=== PATIENT | female | born 1990 | race Caucasian/White ===

== ENCOUNTER 2019-11-20 11:59 | Emergency (ER) | payer MEDICAID, SELFPAY ==
[2019-11-20 13:03] VITALS: PULSE 80; RESP 20; TEMP 37.1; O2SAT 98; BMI 44.3
--- NOTE | 2019-11-20 13:12 | PC.NURSE ---
Patient seated back out in the waiting area at this time due to unavailable rooms at this time. Will continue to monitor.
[2019-11-20 14:09] VITALS: BP 127/74; PULSE 78; RESP 18; TEMP 36.7; O2SAT 99
--- NOTE | 2019-11-20 14:11 | W.ED.BACK ---
HPI - Back Pain/Injury General: Chief Complaint: Back Pain/Injury Stated Complaint: BACK PAIN Time Seen by Provider: 11/20/19 13:57 Source: patient Mode of arrival: ambulatory Limitations: no limitations History of Present Illness: HPI Narrative: 29 yo female patient presents to ER with c/o low back pain x 1 week. Pt denies any injury or trauma. Pt states pain started while she was trying to get dressed. Pt denies any IV drug abuse, hx of cancer, loss of bowel or bladder. PT denies any radiation of pain. MD elicited complaint: back pain Pertinent past history: prior back pain Onset (ago): week(s) (1) Timing: constant Similar Symptoms Previously: Yes Quality: sharp Location: lumbar spine Radiation: none Exacerbating factors: movement and lifting Relieving factors: none Context: while lifting and turning/twisting Associated symptoms: Deny abdominal pain, arthralgias, chills, change in bowel habits, difficulty walking, dysuria, fatigue, fecal incontinence, fever(s), hematuria, myalgias, nausea, numbness, syncope, tingling/numbness/burning, urinary frequency, urinary urgency, vomiting, weakness or other Review of Systems Const: Denies: fever, chills or fatigue Eyes: Denies: change in vision, blurry vision, blind spots, photophobia, eye discomfort, eye discharge, eye redness, floaters or seeing flashes ENMT: Denies: throat pain, uvular edema, enlarged tonsils, painful swallowing, hoarseness, mouth pain, swelling of lips/tongue, oral sores/lesions, bleeding gums, dental pain, dry mouth, ear pain, ear discharge, Change in hearing, tinnitus, disequilibrium, nasal discharge, nasal congestion, post nasal drip or facial/sinus pain Card: Denies: syncope Resp: Denies: shortness of breath, productive cough, non-productive cough, wheezing, stridor, pain on inspiration, change in phlegm color, coughing up blood or chest congestion GI: Denies: abdominal pain, nausea, vomiting, fecal incontinence or change in bowel habits : Denies: painful urination, urinary urgency or blood in urine Musc: Denies: neck pain, back pain, extremity pain, extremity swelling, joint pain, joint swelling, redness, joint warmth or deformity Skin/Breast: Denies: rash, itching, redness, sores, new lesion, changes in skin color or dry skin Neuro: Denies: difficulty walking Psych: Denies: anxiety, depression, suicidal ideation or homicidal ideation Endo: Denies: excessive urination, excessive thirst, tired all the time, cold intolerance, excessive sweating, flushing, hot flashes or heat intolerance Hugo/Lymph: Denies: easy bruising, easy bleeding, petechiae, purpura, enlarged lymph nodes or tender lymph nodes All/Imm: Denies: hives, throat swelling, tongue swelling, facial swelling, acute wheezing or itchy eyes PFSH ED PFSH: Statuses (acute, chronic, etc) shown below reflect problem list status as previously entered and may not be historically accurate Social History Smoking and tobacco status: never smoked Physical Exam Const: COMMON NORMALS: no apparent distress, oriented x3, healthy appearing and well nourished GENERAL APPEARANCE: cooperative, comfortable, well kempt and well developed; not ill appearing ORIENTATION/CONSCIOUSNESS: Yes awake HENMT: EXTERNAL EAR: Yes mastoids normal MOUTH: oral and palatal mucosa normal, lip normal, tongue normal and salivary glands and ducts normal THROAT: posterior oropharynx normal, tonsils normal and uvula midline; no uvular edema Neck/C-Spine: COMMON NORMALS: full ROM, no lymphadenopathy, supple, no meningeal signs, no JVD and thyroid normal GENERAL: Yes normal visual inspection and Yes trachea midline THYROID: thyroid normal CERVICAL SPINE: Yes cervical ROM normal Lymph: LYMPHATIC: no lymphadenopathy noted and no lymphedema noted Resp: COMMON NORMALS: normal respiratory effort, no retractions, no use of accessory muscles and clear to auscultation bilaterally EFFORT & INSPECTION: Yes able to speak in complete sentences and Yes symmetric chest movement AUSCULTATION: clear to auscultation bilaterally Cardio: COMMON NORMALS: no JVD, regular rate and regular rhythm RATE: regular rate RHYTHM: regular rhythm GI: RECTAL EXAM: deferred : COMMON NORMALS: Yes no CVA tenderness BLADDER/KIDNEY EXAM: Yes no CVA tenderness Back/Pelvis: COMMON NORMALS: no CVA tenderness, thoracic and lumbar spine normal to inspection, no thoracic nor lumbar tenderness, thoraco-lumbar ROM normal and straight leg raise negative bilaterally GENERAL BACK: Yes tenderness (diffuse lumbar region there is no midline tenderness) THORACIC SPINE/UPPER BACK: Yes normal to inspection LUMBAR SPINE/LOWER BACK: Yes normal to inspection, Yes ROM limited, No lumbar spinal tenderness and Yes straight leg raise negative bilaterally Extremity: COMMON NORMALS: normal to inspection, full ROM and normal capillary refill GENERAL: Yes normal exam except as noted Neuro: COMMON NORMALS: oriented x3, CN's II-XII intact bilaterally, moves all extremities, no focal motor deficits, no sensory deficits noted, deep tendon reflexes 2+ bilaterally and gait normal MENINGEAL SIGNS: Yes no meningeal signs SPEECH: speech normal GAIT: Yes normal gait SENSORY EXAM: Yes extremities MOTOR EXAM: strength 5/5 throughout Psych: COMMON NORMALS: mental status grossly normal, thought process normal, cooperative, affect normal, speech normal, activity/motor behavior normal, denies hallucinations, denies homicidal ideation and denies suicidal ideation APPEARANCE: Yes grossly normal and Yes well kempt ATTITUDE: Yes calm ACTIVITY/MOTOR BEHAVIOR: Yes appropriate eye contact SPEECH: Yes normal speech THOUGHT PROCESS: normal thought process THOUGHT CONTENT: Yes normal thought content ATTENTION/CONCENTRATION: Yes attention grossly intact MEMORY/COGNITION: Yes memory grossly intact INSIGHT: insight good JUDGEMENT: judgment good Skin: COMMON NORMALS: no rashes or lesions noted, no wounds, skin turgor normal, no jaundice, no petechiae and no mottling GENERAL SKIN EXAM: no rashes or lesions noted and turgor normal Course ED course: Patient is well-appearing nontoxic and in no acute distress. Odilon was considered for low back pain. Patient does not have any history of hypertension, trauma, fever, IV drug abuse, cancer. Patient's urinalysis does not reveal any concerning findings. Patient does not have any midline tenderness. Patient does not have any radiation of pain. Patient does not have any CVA tenderness. Patient does not complain of any numbness or tingling. Patient is neurovascularly intact bilateral lower extremities. Patient does not have any signs of cauda equina. Patient does not have any loss of bowel or bladder. Patient does not have any perianal numbness or tingling. Patient was given Flexeril Decadron 10 mg IM as well as Toradol 60 mg IM and did have clinical improvement with this. I will plan to discharge patient home at this time with a prescription for indomethacin as well as lidocaine 5% patches. Patient advised of no heavy lifting of anything greater than 20 pounds for the next 2 weeks and to minimize twisting and bending. Patient advised if pain is not better in 2 weeks she is to follow-up with her primary care physician. Return precautions advised home care instructions reviewed. Do not feel any further medical testing is needed at this time patient is medically clear and appropriate Vital Signs: Vital signs: Vital Signs Temperature 98.1 F 11/20/19 16:04 Pulse Rate 72 11/20/19 16:04 Respiratory Rate 16 11/20/19 16:04 Blood Pressure 120/80 11/20/19 16:04 Pulse Oximetry 98 11/20/19 16:04 MDM - Back Pain/Injury Lab Data: Labs: Lab Results 11/20/19 Range/Units 14:24 Urine Color Yellow (Yellow) Urine Appearance Sl hazy (CLEAR) Urine pH 6 (5-7) Ur Specific Gravit y 1.015 (1.005-1.030) Urine Protein Neg (Negative) Urine Glucose (UA) Norm (Normal) Urine Ketones 1+ H (Negative) Urine Occult Blood Neg (Negative) Urine Nitrate Negative (Negative) Urine Bilirubin Neg (NEGATIVE) Urine Urobilinogen 1 H (Negative) mg/dL Ur Leukocyte Krys ase Negative (Negative) Urine RBC 0-4 H (0-2) /hpf Urine WBC 0-4 H (0-5) /hpf Ur Squamous Epith Cells 5-10 H (0-5) Urine Bacteria 1+ H (NONE) Urine Mucus 2+ Discharge Plan Discharge Patient Disposition: Home, Self-Care Clinical Impression: Strain of lumbar region Qualifiers: Encounter type: initial encounter Qualified Code(s): S39.012A - Strain of muscle, fascia and tendon of lower back, initial encounter Condition: Stable Prescriptions: New indomethacin 25 mg capsule 25 mg PO BID Qty: 30 RF: 0 lidocaine 5 % adhesive patch,medicated 1 patch TOPICAL DAILY Qty: 5 RF: 0 Referrals: Adalgisa Mitchell, [employer] [Primary Care Provider] - Discharge Diet: Usual diet Discharge Activity: Limit activity as instructed Patient Instructions: Acute Low Back Pain (ED) Activity Restrictions/Additional Instructions: Please imit twisting and bending and do not pick anything up over 20 oounds for next two weeks. If no improvement after 2 weeks please see PCP for possible imaging. Please take medications as directed. Discharge Date/Time: 11/20/19 16:06 Coding Level of Care Code ED Grocery Department Manager for Edy Chaudhary
[2019-11-20] MEDS: cyclobenzaprine 10 mg Tablet PO (14:25)
[2019-11-20] MEDS: dexamethasone 10 mg/mL INJ IM (14:28)
[2019-11-20] MEDS: ketorolac 60 mg/2 mL INJ IM (14:30)
[2019-11-20 15:16] LABS: Add Urine Microscopic? YES; Bilirubin Urine Neg (NEGATIVE); Blood Urine Neg (Negative); Glucose Urine UA Norm (Normal); Ketones Urine 1+ (Negative); Leukocyte Esterase Urine Negative (Negative); Nitrate Urine Negative (Negative); Protein Urine Neg (Negative); Specific Gravity, Urine 1.015 (1.005-1.030); Urine Appearance SL Hazy (CLEAR); Urine Color Yellow (Yellow); Urobilinogen Urine 1 mg/dL (Negative); pH Urine 6 (5-7)
[2019-11-20 15:17] LABS: Bacteria Urine 1+; Mucus Urine 2+; RBC Urine 0-4 /hpf (0-2); WBC Urine 0-4 /hpf (0-5)
[2019-11-20 16:04] VITALS: BP 120/80; PULSE 72; RESP 16; TEMP 36.7; O2SAT 98
== END 2019-11-20 16:06 | disposition home or self-care (01) ==
PROVIDERS: Emergency Provider Registered Nurse; Family Provider Nurse Practitioner; PCP Nurse Practitioner
DX: S39.012A Strain of muscle, fascia and tendon of lower back, initial encounter (principal); X58.XXXA Exposure to other specified factors, initial encounter
CPT/HCPCS: 81001; 96372; 99281; 99283; A9270; J1100; J1885

== ENCOUNTER 2020-01-14 18:54 | Emergency (ER) | payer MEDICAID, SELFPAY ==
[2020-01-14 19:02] VITALS: BP 140/84; PULSE 102; RESP 18; TEMP 36.6; BMI 36.9
--- NOTE | 2020-01-14 19:22 | ECG_ITS ---
Measurements Intervals [place] Rate: 95 P: 48 [place]: 152 QRS: 38 QRSD: 85 T: 31 QT: 350 QTc: 440 SINUS RHYTHM POSSIBLE LEFT ATRIAL ENLARGEMENT [-0.1mV P WAVE IN V1/V2] No previous ECG available for comparison Electronically Signed On 01-15-2020 18:16:58 CDT by Kayla Avery M.D. [email or web address]
--- NOTE | 2020-01-14 19:22 | XR_ITS ---
WS: [id number] PORTABLE CHEST HISTORY: cp COMPARISON: None available. Lungs are clear and well expanded. No pleural effusion or pneumothorax. Cardiac size: Normal. Mediastinum/Aorta: Normal mediastinum. Thoracolumbar junction fusion hardware. XR/XR chest 1V portable [id number] IMPRESSION: Unremarkable portable chest.
--- NOTE | 2020-01-14 19:22 | CTR_ITS ---
PROCEDURE INFORMATION: Exam: CT Head Without Contrast Exam date and time: 01/14/2020 7:31 PM Age: 30 years old Clinical indication: Weakness, extremity; Right; Patient HX: Woke up from a nap w rue numbness/weakness; Additional info: R weakness TECHNIQUE: Imaging protocol: Computed tomography of the head without contrast. Total DLP: 791.11 mGy-cm Radiation optimization: All CT scans at this facility use at least one of these dose optimization techniques: automated exposure control; mA and/or kV adjustment per patient size (includes targeted exams where dose is matched to clinical indication); or iterative reconstruction. COMPARISON: No relevant prior studies available. FINDINGS: Brain: Normal. No hemorrhage. Unremarkable white matter. No mass effect. Ventricles: Normal. No ventriculomegaly. Bones/joints: Unremarkable. No acute fracture. Sinuses: Visualized sinuses are unremarkable. No fluid levels. Mastoid air cells: Sclerotic right mastoid. The left mastoid is clear. Soft tissues: Unremarkable. CT/CT head wo con* [id number] IMPRESSION: 1. No acute intracranial abnormality. Radiation Dose CTDIVOL = (mGy): DLP = 791.11 (mGy-cm)
[2020-01-14 19:36] LABS: Basophils % 0.3 %; Eosinophils # 0.3 10^3/uL (0.0-0.8); Eosinophils % 2.8 %; Hematocrit 37.7 % (37.0-47.0); Hemoglobin 11.5 g/dL (11.5-15.3); Lymphocytes # 2.8 10^3/uL (0.8-4.8); Lymphocytes % 30.1 %; Mean Corpuscular HGB Conc 30.5 g/dL (30.0-36.0); Mean Corpuscular Hemoglobin 24.4 pg (28.0-34.0); Mean Platelet Volume 8.8 fL (7.4-10.4); Monocytes # 0.7 10^3/uL (0.2-0.9); Neutrophils # 5.4 10^3/uL (1.8-7.7); Neutrophils % 58.6 %; Nucleated Red Blood Cells % 0 %; Platelet Count 293 10^3/cmm (130-400); Red Blood Count 4.71 10^6/uL (4.1-5.3); Red Cell Distribution Width 16.5 % (12.1-15.1); White Blood Count 9.3 10^3/uL (4.0-10.0)
--- NOTE | 2020-01-14 19:42 | W.ED.CHESTPA ---
HPI - Chest Pain General: Chief Complaint: Chest Pain Stated Complaint: Chest pain, dizzy, numb rt arm Time Seen by Provider: 01/14/20 19:19 History of Present Illness: HPI narrative: 30-year-old female with lower neck, right shoulder, and right-sided chest pain. She is having paresthesias down the right arm, and states that the right arm feels weak. This started around 5:30 PM when she woke up from a nap. There is no weakness to the lower extremity, trouble walking, trouble with speech, etc. There is no shortness of breath. MD complaint: chest pain Onset (ago): hour(s) (2) Prior episodes: No Onset: during rest Pain location: right chest Pain radiation: right arm, back and neck Severity: moderate Quality: aching and sharp Relieving factors: nothing Exacerbating factors: nothing Associated symptoms: Deny dyspnea, fever(s), nausea, palpitations or vomiting Treatment prior to arrival: none Review of Systems Const: Denies: fever or chills Eyes: Denies: change in vision or blurry vision ENMT: Denies: painful swallowing, swelling of lips/tongue or facial/sinus pain Card: Reports: chest pain; Denies: palpitations, irregular heart rhythm, edema or shortness of breath when lying down Resp: Denies: shortness of breath GI: Denies: nausea or vomiting : Denies: painful urination or blood in urine Musc: Reports: neck pain; Denies: back pain, redness or joint warmth Skin/Breast: Denies: rash, itching or redness Neuro: Denies: headache, dizziness, vertigo, confusion or seizure-like activity Psych: Denies: anxiety PFSH ED PFSH: Social History Smoking and tobacco status: current every day smoker Physical Exam Const: COMMON NORMALS: alert GENERAL APPEARANCE: well developed ORIENTATION/CONSCIOUSNESS: Yes oriented to person, Yes oriented to place and Yes oriented to time HENMT: COMMON NORMALS: normocephalic, external ears normal and external nose normal HEAD & SCALP: normocephalic FACE & SINUS: normal facial exam NOSE: external nose normal and no nasal discharge EXTERNAL EAR: Yes external ears normal MOUTH: tongue normal Eye: COMMON NORMALS: PERRL, EOMs intact bilaterally and conjunctivae normal EYELID: eyelids normal CONJUNCTIVA: Yes conjunctivae normal PUPIL: Yes PERRL Neck/C-Spine: GENERAL: No tracheal deviation CERVICAL SPINE: Yes normal cervical lordosis and Yes cervical spine tenderness Chest: COMMONS NORMALS: inspection of chest normal CHEST: Yes tenderness Resp: COMMON NORMALS: clear to auscultation bilaterally EFFORT & INSPECTION: No tachypneic, No respiratory distress, No retractions, No uses accessory muscles and No tracheal deviation AUSCULTATION: clear to auscultation bilaterally, no rhonchi, no wheezes and lung sounds not diminished Cardio: COMMON NORMALS: regular rate and regular rhythm RATE: regular rate RHYTHM: regular rhythm HEART SOUNDS: no murmurs PERIPHERAL PULSES: radial pulses present GI: INSPECTION: No abdominal distension AUSCULTATION: No hyperactive bowel sounds and No hypoactive bowel sounds PALPATION: No guarding and No rigid PERCUSSION: no dullness to percussion and no tympanic to percussion : COMMON NORMALS: Yes no CVA tenderness BLADDER/KIDNEY EXAM: Yes no CVA tenderness Back/Pelvis: COMMON NORMALS: no CVA tenderness Neuro: SENSORIUM/ORIENTATION: Yes alert, Yes oriented to person, Yes oriented to place and Yes oriented to time Psych: COMMON NORMALS: mental status grossly normal Skin: COMMON NORMALS: no rashes or lesions noted GENERAL SKIN EXAM: no rashes or lesions noted Course Vital Signs: Vital signs: Vital Signs Temperature 98.4 F 01/14/20 21:26 Pulse Rate 85 01/14/20 21:26 Respiratory Rate 18 01/14/20 21:26 Blood Pressure 135/98 01/14/20 21:26 Pulse Oximetry 100 01/14/20 21:26 MDM - Chest Pain MDM Narrative: Medical decision making narrative: 30-year-old female presents with right-sided neck, shoulder, and chest pain with paresthesias in her right arm. This is improving currently. She still has some decreased sensation subjectively, but can feel touch and position, and her strength has returned. She demonstrated no other neurologic symptoms. Her pain is improved as well. This is likely a cervical radiculopathy. She is tender over her lower cervical spine. We will place her on a steroid taper for the next few days. Her CT is negative. Her chest x-ray is negative. Her labs are normal. Lab Data: Labs: Lab Results 01/14/20 01/14/20 01/14/20 Range/Units 19:30 19:30 19:30 WBC 9.3 (4.0-10.0) 10^3/ uL RBC 4.71 (4.1-5.3) 10^6/u L Hgb 11.5 (11.5-15.3) g/dL Hct 37.7 (37.0-47.0) % MCV 80.0 L (81-99) fL MCH 24.4 L (28.0-34.0) pg MCHC 30.5 (30.0-36.0) g/dL RDW 16.5 H (12.1-15.1) % Plt Count 293 (130-400) 10^3/c mm MPV 8.8 (7.4-10.4) fL Neut % (Auto) 58.6 % Lymph % (Auto) 30.1 % [place] % (Auto) 8.0 % Eos % (Auto) 2.8 % Baso % (Auto) 0.3 % Neut # (Auto) 5.4 (1.8-7.7) 10^3/u L Lymph # (Auto) 2.8 (0.8-4.8) 10^3/u L [place] # (Auto) 0.7 (0.2-0.9) 10^3/u L Eos # (Auto) 0.3 (0.0-0.8) 10^3/u L Baso # (Auto) 0.0 (0.0-0.1) 10^3/u L Nucleated RBC % (a uto) 0 % Nucleated RBCs # 0.0 /100WBC Sodium 138 (136-145) mmol/L Potassium 4.0 (3.5-5.1) mmol/L Chloride 102 (98-107) mmol/L Carbon Dioxide 25 (22-29) mmol/L Anion Gap 15.0 (5-19) BUN 10 (6-20) mg/dL Creatinine 0.7 (0.5-0.9) mg/dL GFR Calculation 97.0 (90-130) mL/min Glucose 102 (65-115) mg/dL Calculated Osmolal ity 282 L (285-295) mOsm/k g Calcium 9.6 (8.5-10.5) mg/dL Total Bilirubin 0.2 (0.15-1.2) mg/dL AST 15 (0-32) U/L ALT 15 (0-33) U/L Alkaline Phosphata se 80 (35-105) IU/L Troponin T Baselin e 6 (0-10) ng/mL Troponin T 120 Min point [place] (0-10) ng/mL Delta Troponin T (0-10) ABS# Total Protein 7.4 (6.6-8.7) g/dL Albumin 4.0 (3.5-5.2) g/dL Globulin 3.4 (1.3-4.6) g/dL HCG, Qual (Negative) Urine Color (Yellow) Urine Appearance (CLEAR) Urine pH (5-7) Ur Specific Gravit y (1.005-1.030) Urine Protein (Negative) Urine Glucose (UA) (Normal) Urine Ketones (Negative) Urine Blood (Negative) Urine Nitrate (Negative) Urine Bilirubin (NEGATIVE) Urine Urobilinogen (Negative) mg/dL Ur Leukocyte Krys ase (Negative) 01/14/20 01/14/20 01/14/20 Range/Units 19:30 20:21 21:15 WBC (4.0-10.0) 10^3/ uL RBC (4.1-5.3) 10^6/u L Hgb (11.5-15.3) g/dL Hct (37.0-47.0) % MCV (81-99) fL MCH (28.0-34.0) pg MCHC (30.0-36.0) g/dL RDW (12.1-15.1) % Plt Count (130-400) 10^3/c mm MPV (7.4-10.4) fL Neut % (Auto) % Lymph % (Auto) % [place] % (Auto) % Eos % (Auto) % Baso % (Auto) % Neut # (Auto) (1.8-7.7) 10^3/u L Lymph # (Auto) (0.8-4.8) 10^3/u L [place] # (Auto) (0.2-0.9) 10^3/u L Eos # (Auto) (0.0-0.8) 10^3/u L Baso # (Auto) (0.0-0.1) 10^3/u L Nucleated RBC % (a uto) % Nucleated RBCs # /100WBC Sodium (136-145) mmol/L Potassium (3.5-5.1) mmol/L Chloride (98-107) mmol/L Carbon Dioxide (22-29) mmol/L Anion Gap (5-19) BUN (6-20) mg/dL Creatinine (0.5-0.9) mg/dL GFR Calculation (90-130) mL/min Glucose (65-115) mg/dL Calculated Osmolal ity (285-295) mOsm/k g Calcium (8.5-10.5) mg/dL Total Bilirubin (0.15-1.2) mg/dL AST (0-32) U/L ALT (0-33) U/L Alkaline Phosphata se (35-105) IU/L Troponin T Baselin e (0-10) ng/mL Troponin T 120 Min point [place] 6.00 (0-10) ng/mL Delta Troponin T 0 (0-10) ABS# Total Protein (6.6-8.7) g/dL Albumin (3.5-5.2) g/dL Globulin (1.3-4.6) g/dL HCG, Qual Negative (Negative) Urine Color Yellow (Yellow) Urine Appearance Clear (CLEAR) Urine pH 6 (5-7) Ur Specific Gravit y 1.020 (1.005-1.030) Urine Protein Neg (Negative) Urine Glucose (UA) Norm (Normal) Urine Ketones Negative (Negative) Urine Blood Neg (Negative) Urine Nitrate Negative (Negative) Urine Bilirubin Neg (NEGATIVE) Urine Urobilinogen Norm (Negative) mg/dL Ur Leukocyte Krys ase Negative (Negative) Discharge Plan Discharge Patient Disposition: Home, Self-Care Clinical Impression: Cervical radiculopathy Condition: Stable Prescriptions: New Medrol (David) 4 mg tablets,dose pack See Rx Instructions .ROUTE .COMPLEX Qty: 21 RF: 0 No Action indomethacin 25 mg capsule 25 mg PO BID Qty: 30 RF: 0 lidocaine 5 % adhesive patch,medicated 1 patch TOPICAL DAILY Qty: 5 RF: 0 Discharge Orders: Discharge Order (Routine); Ordered 01/14/20 Ordered By: Mayur Carter Referrals: Paula,Glennette R, Y[employer] HAULER-C [Primary Care Provider] - Discharge Diet: Usual diet Discharge Activity: Increase activity as tolerated Patient Instructions: Cervical Radiculopathy (ED) Activity Restrictions/Additional Instructions: Return for worsening chest discomfort, shortness of breath, worsening weakness despite treatment, speech problems language problems, increasing weakness such as Lorenza, etc., other concerning symptoms. Discharge Date/Time: 01/14/20 21:27 Coding Level of Care Code ED Etl Database Developer for [employer] Fwd Exam Comprehensive NIH stroke score NIHSS Level Of Consciousness - 1a: 0 Level Of Consciousness Questions - 1b: Both Correct Level Of Consciousness Commands - 1c: Both Correct Best Gaze - 2: Normal Visual [place]oto - 3: No Visual Loss Facial Palsy - 4: Normal Motor Arm Right - 5: No Drift Motor Arm Left - 5: No Drift Motor Leg Right - 6: No Drift Motor Leg Left - 6: No Drift Limb Ataxia - 7: Absent Sensory - 8: Mild To Moderate Loss Best Language - 9: No Aphasia Dysarthia - 10: Normal Extinction And Inattention - 11: 0 Score Total Score: 1
[2020-01-14 19:58] LABS: Alanine Aminotransferase 15 U/L (0-33); Alkaline Phosphatase 80 IU/L (35-105); Aspartate Amino Transferase 15 U/L (0-32); Blood Urea Nitrogen 10 mg/dL (6-20); Calcium 9.6 mg/dL (8.5-10.5); Carbon Dioxide 25 mmol/L (22-29); Chloride 102 mmol/L (98-107); Creatinine Clr Calc Pharmacy 154.9657; Globulin 3.4 g/dL (1.3-4.6); Glucose 102 mg/dL (65-115); HCG, Serum Qual Negative (Negative); Osmolality Calculated 282 mOsm/kg (285-295); Sodium 138 mmol/L (136-145); Total Bilirubin 0.2 mg/dL (0.15-1.2); Total Protein 7.4 g/dL (6.6-8.7)
[2020-01-14 19:59] LABS: Troponin(5th) Baseline 6 ng/mL (0-10)
[2020-01-14 20:27] VITALS: RESP 16; O2SAT 98
[2020-01-14] MEDS: morphine 4 mg/mL SDV 1 mL IVP (20:27)
[2020-01-14] MEDS: ondansetron 2 mg/ML SDV 2 mL 4 MG IVP (20:28)
[2020-01-14 20:42] LABS: Add Urine Microscopic? NO
[2020-01-14 20:49] LABS: Bilirubin Urine Neg (NEGATIVE); Blood Urine Neg (Negative); Glucose Urine UA Norm (Normal); Ketones Urine Negative (Negative); Leukocyte Esterase Urine Negative (Negative); Nitrate Urine Negative (Negative); Protein Urine Neg (Negative); Urine Appearance Clear (CLEAR); Urine Color Yellow (Yellow); Urobilinogen Urine Norm (Negative); pH Urine 6 (5-7)
--- NOTE | 2020-01-14 21:22 | ECG_ITS ---
Measurements Intervals [place] Rate: 95 P: 48 [place]: 152 QRS: 38 QRSD: 85 T: 31 QT: 350 QTc: 440 SINUS RHYTHM POSSIBLE LEFT ATRIAL ENLARGEMENT [-0.1mV P WAVE IN V1/V2] No previous ECG available for comparison Electronically Signed On 01-15-2020 18:33:41 CDT by Kayla Avery M.D. [email or web address]
[2020-01-14 21:26] VITALS: BP 135/98; PULSE 85; RESP 18; TEMP 36.9; O2SAT 100
[2020-01-14 21:33] LABS: Troponin 5 2HR Delta 0 ABS# (0-10)
== END 2020-01-14 21:27 | disposition home or self-care (01) ==
PROVIDERS: Emergency Provider Emergency Medicine; Family Provider Nurse Practitioner; PCP Nurse Practitioner
DX: M54.12 Radiculopathy, cervical region (principal); F17.200 Nicotine dependence, unspecified, uncomplicated
CPT/HCPCS: 12345; 70450; 71045; 80053; 81003; 84484; 84703; 85025; 93005; 96374; 96375; 99281; 99284; J2270; J2405

== ENCOUNTER 2020-03-17 16:29 | Emergency (ER) | payer MEDICAID, SELFPAY ==
[2020-03-17 16:34] VITALS: BP 151/131; PULSE 113; RESP 18; TEMP 36.6; O2SAT 100; BMI 40.1
--- NOTE | 2020-03-17 16:38 | W.ED.BACK ---
HPI - Back Pain/Injury General: Chief Complaint: Back Pain/Injury Stated Complaint: BACK PAIN Time Seen by Provider: 03/17/20 16:38 History of Present Illness: HPI Narrative: Patient is a 30-year-old female comes the ED with lower back pain. Patient has a past medical history of chronic back pain and she is obese. Patient denies any injury, trauma or accident to cause acute back pain. patient says yesterday she lifted a cooler. Today when patient woke up she said she was feeling fine but then as the day progressed she started developing 10 out of 10 lower back pain. She says it radiates down both legs. Denies any pelvic numbness or tingling, bladder or bowel incontinence. MD elicited complaint: back pain Pertinent past history: prior back pain Onset (ago): hour(s) Timing: constant and progressively worsening Associated symptoms: Deny abdominal pain, chills, dysuria, fatigue, fever(s), hematuria, nausea or vomiting Review of Systems Const: Denies: fever(s), chills or fatigue Eyes: Denies: change in vision or eye discomfort ENMT: Denies: throat pain, odynophagia, nasal discharge or nasal congestion Card: Denies: chest pain, palpitations, edema, swelling of feet/ankles, dyspnea on exertion or orthopnea Resp: Denies: dyspnea, productive cough or non-productive cough GI: Denies: abdominal pain, nausea, vomiting, diarrhea, constipation or hematochezia : Denies: flank pain, dysuria or hematuria Musc: Reports: back pain (lower back); Denies: neck pain or extremity swelling Skin/Breast: Denies: rash or new lesions Neuro: Denies: headache(s), numbness in extremities or weakness in extremities PFS ED PFSH: Social History Smoking and tobacco status: current every day smoker Physical Exam Const: COMMON NORMALS: patient oriented x3 and alert GENERAL APPEARANCE: cooperative; not comfortable (uncomfortable due to lower back pain) NUTRITIONAL APPEARANCE: obese HENMT: COMMON NORMALS: normocephalic HEAD & SCALP: normocephalic MOUTH: Normal oral and palatal mucosa present THROAT: posterior oropharynx normal and uvula midline Eye: COMMON NORMALS: Equal, round and reactive pupils present PUPIL: Yes Equal, round and reactive pupils present Neck/C-Spine: COMMON NORMALS: supple GENERAL: Yes normal visual inspection Resp: COMMON NORMALS: normal respiratory effort, No retractions, No use of accessory muscles and clear to auscultation bilaterally AUSCULTATION: clear to auscultation bilaterally Cardio: COMMON NORMALS: regular rate, regular rhythm, S1 normal heart sound present, S2 normal heart sound present, No gallops present (Cardio), No clicks present (Cardio), No murmurs present (Cardio) and Peripheral pulses 2+ throughout RATE: regular rate RHYTHM: regular rhythm HEART SOUNDS: S1 normal heart sound present and S2 normal heart sound present PERIPHERAL PULSES: Peripheral pulses 2+ throughout GI: COMMON NORMALS: Normal to inspection, nondistended, normoactive bowel sounds present, Soft to palpation, non-tender and no masses INSPECTION: Yes central obesity PALPATION: Yes Soft to palpation : COMMON NORMALS: Yes no CVA tenderness BLADDER/KIDNEY EXAM: Yes no CVA tenderness Back/Pelvis: COMMON NORMALS: no CVA tenderness LUMBAR SPINE/LOWER BACK: Yes ROM limited (due to pain), Yes pain with ROM and Yes paraspinal muscle tenderness Lumbar paraspinal muscle tenderness: bilateral Bilateral lumbar paraspinal muscle tenderness: L5 Extremity: COMMON NORMALS: normal to inspection and no pedal edema Neuro: COMMON NORMALS: patient oriented x3 and moves all extremities SENSORIUM/ORIENTATION: Yes alert Skin: COMMON NORMALS: no rashes or lesions noted GENERAL SKIN EXAM: no rashes or lesions noted and dry skin Course Vital Signs: Vital signs: Vital Signs Temperature 97.8 F 03/17/20 16:34 Pulse Rate 75 03/17/20 17:46 Respiratory Rate 15 03/17/20 17:46 Blood Pressure 148/75 03/17/20 17:46 Pulse Oximetry 98 03/17/20 17:46 MDM - Back Pain/Injury MDM Narrative: Medical decision making narrative: pt is a 30 y/o female who comes to the ED with non-traumatic acute on chronic lower back pain. pt currently has a pain contract and takes hydrocodone. Pt was diagnosed with lumbar radiculopathy and given a prescription medrol dose david and robaxin. You can also take ibuprofen 800 mg 3 times a day to help with pain and inflammation. Follow up with PCP in 7-10 days. pt understood and agreed with plan. Discharge Plan Discharge Patient Disposition: Home, Self-Care Clinical Impression: Lumbar radiculopathy Condition: Stable Prescriptions: No Action hydrocodone-acetaminophen 7.5-325 mg tablet 1 tab PO QID RF: 0 melatonin 5 mg Tablet,Disintegrating 5 mg PO BEDTIME PRN (Reason: Sleep) RF: 0 ibuprofen 800 mg Tablet 800 mg PO Q8H RF: 0 Robaxin-750 750 mg Tablet 750 mg PO Q8H RF: 0 Medrol (David) See Rx Instructions .ROUTE .COMPLEX RF: 0 Discharge Orders: Discharge Order (Routine); Ordered 03/17/20 Ordered By: Jabier Mcqueen Referrals: Adalgisa Mitchell, FLIGHT CONTROL TOWER OPERATOR-C [Primary Care Provider] - Discharge Diet: Regular Discharge Activity: Increase activity as tolerated Patient Instructions: Lumbar Radiculopathy (ED) Activity Restrictions/Additional Instructions: Follow-up with your PCP in 7 to 10 days for reevaluation. Apply ice and/or heat on back to help with symptoms. Stretch and massage lower back daily. Take Medrol dose pack as prescribed. You can also take ibuprofen 800 mg 3 times a day to help with pain and inflammation. Also given your prescription for Robaxin which is a muscle relaxer and you can take that at night before bed to help with pain and comfort while sleeping. Remember Robaxin can cause some drowsiness so use with caution during the day. Continue taking all other previously prescribed medications. Discharge Date/Time: 03/17/20 17:47 Coding Level of Care Code ED Soda Dispenser for Edy Fwnorma Exam Comprehensive
[2020-03-17] MEDS: predniSONE 20 mg Tablet 60 MG PO (17:27)
[2020-03-17] MEDS: orphenadrine 30 mg/mL Inj 2 mL 60 MG IM (17:28)
[2020-03-17] MEDS: ketorolac 60 mg/2 mL INJ IM (17:28)
--- NOTE | 2020-03-17 17:29 | PC.NURSE ---
Patient voiced concern that she was not seen by a MD and rather a PA. Patient voiced concern the MRI was not performed. Oncoming UNIT NURSE notified.
[2020-03-17 17:46] VITALS: BP 148/75; PULSE 75; RESP 15; O2SAT 98
== END 2020-03-17 17:47 | disposition home or self-care (01) ==
PROVIDERS: Emergency Provider Physician Assistant; Family Provider Nurse Practitioner; PCP Nurse Practitioner
DX: M54.16 Radiculopathy, lumbar region (principal); F17.210 Nicotine dependence, cigarettes, uncomplicated
CPT/HCPCS: 12345; 96372; 99281; 99283; J1885; J2360; J7512

== ENCOUNTER 2020-09-13 20:14 | Emergency (ER) | payer MEDICAID, SELFPAY ==
[2020-09-13 20:18] VITALS: BP 154/86; PULSE 96; RESP 17; TEMP 36.7; O2SAT 98; BMI 36.9
--- NOTE | 2020-09-13 20:18 | CTR_ITS ---
PROCEDURE INFORMATION: Exam: CT Lumbar Spine Without Contrast Exam date and time: 09/13/2020 8:38 PM Age: 30 years old Clinical indication: Injury or trauma; Blunt trauma (contusions or hematomas); Injury details: Fall from standing position onto back this am; Prior surgery TECHNIQUE: Imaging protocol: Computed tomography images of the lumbar spine without contrast. Radiation optimization: All CT scans at this facility use at least one of these dose optimization techniques: automated exposure control; mA and/or kV adjustment per patient size (includes targeted exams where dose is matched to clinical indication); or iterative reconstruction. COMPARISON: MRI Lumbar Spine w/o [id number] 11/02/2016 10:49 AM RADIATION DOSE METRICS: Total DLP (mGy-cm): 2696.57 FINDINGS: Vertebrae: T10, T12, and right L1 pedicle screws with posterior stabilization rods. The lumbar vertebral body alignment and stature is intact. The facets are intact with mild degenerative changes. L1-L2: No significant disc protrusion. No severe spinal canal stenosis. No significant neural foraminal narrowing. L2-L3: No significant disc protrusion. No spinal canal stenosis. No neural foraminal narrowing. L3-L4: Mild disc bulge. Mild bilateral foraminal stenosis. No central canal stenosis. L4-L5: Mild disc bulge. Mild left and moderate right foraminal stenosis. Mild central canal stenosis. L5-S1: Mild disc bulge. Mild bilateral foraminal stenosis. No central canal stenosis. Soft tissues: Unremarkable. CT/CT lumbar spine wo con* [id number] IMPRESSION: No acute findings. Radiation Dose CTDIVOL = (mGy): DLP = 2696.57 (mGy-cm)
--- NOTE | 2020-09-13 20:18 | CTR_ITS ---
PROCEDURE INFORMATION: Exam: CT Thoracic Spine Without Contrast Exam date and time: 09/13/2020 8:38 PM Age: 30 years old Clinical indication: Injury or trauma; Blunt trauma (contusions or hematomas); Injury details: Fall from standing position onto back this am; Prior surgery; Surgery date: 6+ months TECHNIQUE: Imaging protocol: Computed tomography images of the thoracic spine without contrast. Radiation optimization: All CT scans at this facility use at least one of these dose optimization techniques: automated exposure control; mA and/or kV adjustment per patient size (includes targeted exams where dose is matched to clinical indication); or iterative reconstruction. COMPARISON: 1. CR Thoracic Spine 2v AP/Lat [id number] 08/26/2016 10:37 AM 2. MRI Lumbar Spine w/o [id number] 11/02/2016 10:49:06 AM RADIATION DOSE METRICS: Total DLP (mGy-cm): 2580.07 FINDINGS: Vertebrae: Rightward thoracic curvature. Bilateral pedicle screws at T10 and T12 and right pedicle screw at L1 with posterior stabilization rods. Titanium cage in the T11 vertebral body to the right of midline. Lytic lesion in the posterior right portion of the T11 vertebral body. Expansile destructive lesion in the right T11 pedicle and lamina. Stable chronic mild anterior right wedging of T12 which is likely chronic. The vertebral body stature is otherwise maintained. T1-T2: No significant disc protrusion. No severe spinal canal stenosis. No significant neural foraminal narrowing. T2-T3: No significant disc protrusion. No severe spinal canal stenosis. No significant neural foraminal narrowing. T3-T4: No significant disc protrusion. No severe spinal canal stenosis. No significant neural foraminal narrowing. T4-T5: No significant disc protrusion. No severe spinal canal stenosis. No significant neural foraminal narrowing. T5-T6: No significant disc protrusion. No severe spinal canal stenosis. No significant neural foraminal narrowing. T6-T7: No significant disc protrusion. No severe spinal canal stenosis. No significant neural foraminal narrowing. T7-T8: T7-8: Mild left and moderate right bony foraminal stenosis. T8-T9: Facets are intact with hypertrophic degenerative changes, asymmetric to the left at T6-7 through T8-9. T8-9: Moderate left and mild right bony foraminal stenosis. T9-T10: No significant disc protrusion. No severe spinal canal stenosis. No significant neural foraminal narrowing. T10-T11: No significant disc protrusion. No severe spinal canal stenosis. No significant neural foraminal narrowing. T11-T12: T11-12: Severe right bony foraminal stenosis due to the expansile right pedicle lesion. T12-L1: No significant disc protrusion. No severe spinal canal stenosis. No significant neural foraminal narrowing. CT/CT thoracic spin wo con* [id number] IMPRESSION: 1. No acute finding. 2. T10-L1 posterior mechanical fusion with titanium cage in the T11 vertebral body. 3. Chronic appearing expansile lesion in the right T11 posterior vertebral body, pedicle, and lamina. 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 Correlate with prior surgical and pathology history. 4. Multilevel bony foraminal stenosis as discussed above. Radiation Dose CTDIVOL = (mGy): DLP = 2580.07 (mGy-cm)
[2020-09-13] MEDS: HYDROcodone-acetaminophen 7.5-325 mg Tablet 1 TAB PO (20:27)
--- NOTE | 2020-09-13 20:28 | W.ED.BACK ---
HPI - Back Pain/Injury General: Chief Complaint: Back Pain/Injury Stated Complaint: back pain Time Seen by Provider: 09/13/20 20:16 Source: patient and EMS Mode of arrival: EMS Limitations: no limitations History of Present Illness: HPI Narrative: 30-year-old female has a history of chronic back pain states she fell this morning and landed on her buttocks. She states she had immediate low back pain is worsened throughout the day. States mainly in the lumbar region. She states it is painful to try to walk. She denies any bladder or bowel incontinence. She denies other injuries with her fall. Associated symptoms: Deny abdominal pain, chills, dysuria, fever(s), nausea or vomiting Review of Systems Const: Denies: fever(s), chills, body aches or change in appetite Eyes: Denies: blurry vision or eye discomfort ENMT: Denies: throat pain or dental pain Card: Denies: chest pain Resp: Denies: dyspnea GI: Denies: abdominal pain, nausea, vomiting or diarrhea : Denies: dysuria Musc: Reports: back pain Skin/Breast: Denies: rash Neuro: Denies: headache(s) Psych: Denies: depression Hugo/Lymph: Denies: easy bruising All/Imm: Denies: urticaria PFSH ED PFSH: Medical History Chronic pain Back Obesity, Class III, BMI 40-49.9 (morbid obesity) Surgical History History of back surgery History of section History of tubal ligation Family History Grandmother Cancer Breast and throat Diabetes Mother Cancer Skin Diabetes Social History Smoking and tobacco status: current every day smoker Second hand smoke exposure: No Smoking risk assessment/counseling performed?: Yes Alcohol intake: unknown Desire information about alcohol rehabilitation?: No Counseling given: No Desire information about substance/drug rehabilitation?: No Counseling given: No Adopted: No Caregiver/support person: No Lives independently: Yes Household members: children Housing: Apartment Marital status: Number of children: 2 service: No Current occupational status: unemployed Current occupation: [employer] History of recent travel: No Current gender identity: Female Female Reproductive History: Date of last menstrual period: 08/24/20 Physical Exam Const: COMMON NORMALS: no acute distress, patient oriented x3 and healthy appearing HENMT: COMMON NORMALS: normocephalic and atraumatic HEAD & SCALP: normocephalic and atraumatic Eye: COMMON NORMALS: Equal, round and reactive pupils present and EOMs intact bilaterally PUPIL: Yes Equal, round and reactive pupils present Neck/C-Spine: COMMON NORMALS: full ROM and supple Chest: COMMONS NORMALS: normal inspection of the chest and normal palpation of entire chest wall Resp: COMMON NORMALS: normal respiratory effort, No retractions, No use of accessory muscles and clear to auscultation bilaterally AUSCULTATION: clear to auscultation bilaterally Cardio: COMMON NORMALS: regular rate, regular rhythm and No murmurs present (Cardio) RATE: regular rate RHYTHM: regular rhythm GI: COMMON NORMALS: Normal to inspection, nondistended, normoactive bowel sounds present, Soft to palpation, non-tender and no masses PALPATION: Yes Soft to palpation Back/Pelvis: OTHER: Lumbar tenderness. No saddle anesthesia 5 out of 5 strength all extremities Extremity: COMMON NORMALS: normal to inspection and full ROM Neuro: COMMON NORMALS: patient oriented x3, moves all extremities and no focal motor deficits Psych: COMMON NORMALS: mental status grossly normal, Normal thought process present and cooperative THOUGHT PROCESS: Normal thought process present Skin: COMMON NORMALS: no rashes or lesions noted and no wounds GENERAL SKIN EXAM: no rashes or lesions noted Course Vital Signs: Vital signs: Vital Signs Temperature 98.1 F 09/13/20 20:18 Pulse Rate 96 09/13/20 20:18 Respiratory Rate 17 09/13/20 20:18 Blood Pressure 154/86 09/13/20 20:18 Pulse Oximetry 98 09/13/20 20:18 MDM - Back Pain/Injury MDM Narrative: Medical decision making narrative: Patient presents here with low back pain after a fall. Patient's CT scans here showed no acute fracture. Exam here is benign we will place her on Naprosyn and Robaxin. She is stable for discharge and is return if worsening. Imaging Data^: CT thoracic spine: Radiologist's impression: [address] [place] [address] CT Scan Report Signed Patient: Jessie Fitzpatrick Unit #: [id number] : 1990 Age/Sex: 30 / F ADM Date: 09/13/20 Loc: ER Room/Bed: Attending Dr: Ordering Provider/Ordering MD: Pablo Carr MD Date of Service: 09/13/20 Procedure(s): CT thoracic spin wo con* [id number] Accession Number(s): [id number] Report Number: [id number] PROCEDURE INFORMATION: Exam: CT Thoracic Spine Without Contrast Exam date and time: 09/13/2020 8:38 PM Age: 30 years old Clinical indication: Injury or trauma; Blunt trauma (contusions or hematomas); Injury details: Fall from standing position onto back this am; Prior surgery; Surgery date: 6+ months TECHNIQUE: Imaging protocol: Computed tomography images of the thoracic spine without contrast. Radiation optimization: All CT scans at this facility use at least one of these dose optimization techniques: automated exposure control; mA and/or kV adjustment per patient size (includes targeted exams where dose is matched to clinical indication); or iterative reconstruction. COMPARISON: 1. CR Thoracic Spine 2v AP/Lat [id number] 08/26/2016 10:37 AM 2. MRI Lumbar Spine w/o [id number] 11/02/2016 10:49:06 AM RADIATION DOSE METRICS: Total DLP (mGy-cm): 2580.07 FINDINGS: Vertebrae: Rightward thoracic curvature. Bilateral pedicle screws at T10 and T12 and right pedicle screw at L1 with posterior stabilization rods. Titanium cage in the T11 vertebral body to the right of midline. Lytic lesion in the posterior right portion of the T11 vertebral body. Expansile destructive lesion in the right T11 pedicle and lamina. Stable chronic mild anterior right wedging of T12 which is likely chronic. The vertebral body stature is otherwise maintained. T1-T2: No significant disc protrusion. No severe spinal canal stenosis. No significant neural foraminal narrowing. T2-T3: No significant disc protrusion. No severe spinal canal stenosis. No significant neural foraminal narrowing. T3-T4: No significant disc protrusion. No severe spinal canal stenosis. No significant neural foraminal narrowing. T4-T5: No significant disc protrusion. No severe spinal canal stenosis. No significant neural foraminal narrowing. T5-T6: No significant disc protrusion. No severe spinal canal stenosis. No significant neural foraminal narrowing. T6-T7: No significant disc protrusion. No severe spinal canal stenosis. No significant neural foraminal narrowing. T7-T8: T7-8: Mild left and moderate right bony foraminal stenosis. T8-T9: Facets are intact with hypertrophic degenerative changes, asymmetric to the left at T6-7 through T8-9. T8-9: Moderate left and mild right bony foraminal stenosis. T9-T10: No significant disc protrusion. No severe spinal canal stenosis. No significant neural foraminal narrowing. T10-T11: No significant disc protrusion. No severe spinal canal stenosis. No significant neural foraminal narrowing. T11-T12: T11-12: Severe right bony foraminal stenosis due to the expansile right pedicle lesion. T12-L1: No significant disc protrusion. No severe spinal canal stenosis. No significant neural foraminal narrowing. CT/CT thoracic spin wo con* [id number] IMPRESSION: 1. No acute finding. 2. T10-L1 posterior mechanical fusion with titanium cage in the T11 vertebral body. 3. Chronic appearing expansile lesion in the right T11 posterior vertebral body, pedicle, and lamina. 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 Correlate with prior surgical and pathology history. 4. Multilevel bony foraminal stenosis as discussed above. Other CT: Radiologist's impression: [address] [address] [address] Scan Report Signed Patient: Jessie Fitzpatrick Unit #: [id number] : 1990 Age/Sex: 30 / F ADM Date: 09/13/20 Loc: ER Room/Bed: Attending Dr: Ordering Provider/Ordering MD: Pablo Carr MD Date of Service: 09/13/20 Procedure(s): CT lumbar spine wo con* [id number] Accession Number(s): [id number] Report Number: [id number] PROCEDURE INFORMATION: Exam: CT Lumbar Spine Without Contrast Exam date and time: 09/13/2020 8:38 PM Age: 30 years old Clinical indication: Injury or trauma; Blunt trauma (contusions or hematomas); Injury details: Fall from standing position onto back this am; Prior surgery TECHNIQUE: Imaging protocol: Computed tomography images of the lumbar spine without contrast. Radiation optimization: All CT scans at this facility use at least one of these dose optimization techniques: automated exposure control; mA and/or kV adjustment per patient size (includes targeted exams where dose is matched to clinical indication); or iterative reconstruction. COMPARISON: MRI Lumbar Spine w/o [id number] 11/02/2016 10:49 AM RADIATION DOSE METRICS: Total DLP (mGy-cm): 2696.57 FINDINGS: Vertebrae: T10, T12, and right L1 pedicle screws with posterior stabilization rods. The lumbar vertebral body alignment and stature is intact. The facets are intact with mild degenerative changes. L1-L2: No significant disc protrusion. No severe spinal canal stenosis. No significant neural foraminal narrowing. L2-L3: No significant disc protrusion. No spinal canal stenosis. No neural foraminal narrowing. L3-L4: Mild disc bulge. Mild bilateral foraminal stenosis. No central canal stenosis. L4-L5: Mild disc bulge. Mild left and moderate right foraminal stenosis. Mild central canal stenosis. L5-S1: Mild disc bulge. Mild bilateral foraminal stenosis. No central canal stenosis. Soft tissues: Unremarkable. CT/CT lumbar spine wo con* [id number] IMPRESSION: No acute findings. Discharge Plan Discharge Patient Disposition: Home Clinical Impression: Fall Qualifiers: Encounter type: initial encounter Qualified Code(s): W19.XXXA - Unspecified fall, initial encounter Low back pain Qualifiers: Chronicity: acute Back pain laterality: unspecified Sciatica presence: without sciatica Qualified Code(s): M54.5 - Low back pain Condition: Stable Prescriptions: New Robaxin-750 750 mg tablet 750 mg PO Q6H Qty: 30 RF: 0 Naprosyn 500 mg tablet 500 mg PO BID PRN (Reason: pain) Qty: 20 RF: 0 No Action venlafaxine [Effexor XR] 37.5 mg capsule,extended release 24hr 37.5 mg PO DAILY Qty: 14 RF: 0 hydrocodone-acetaminophen 7.5-325 mg tablet 1 tab PO QID RF: 0 ibuprofen 800 mg Tablet 800 mg PO Q8H RF: 0 Discharge Orders: Discharge Order (Routine); Ordered 09/13/20 Ordered By: Pablo Carr Referrals: Adalgisa Mitchell, BIOINFORMATICS SUPPORT SPECIALIST-C [Primary Care Provider] - 1-3 days Discharge Diet: Advance as tolerated Discharge Activity: Resume usual activity Patient Instructions: Back Pain (ED) Coding Level of Care Code ED Accounts Payable Lead for Chg Fwd Exam Comprehensive
--- NOTE | 2020-09-13 22:20 | PC.NURSE ---
pt refusing to have serial BP monitoring stating It hurts too much
[2020-09-13 22:32] VITALS: BP 134/84; PULSE 85; RESP 18; O2SAT 100
== END 2020-09-13 22:25 | disposition home or self-care (01) ==
PROVIDERS: Emergency Provider Emergency Medicine; Family Provider Nurse Practitioner; PCP Nurse Practitioner
DX: M54.5 Low back pain (principal); F17.210 Nicotine dependence, cigarettes, uncomplicated
CPT/HCPCS: 12345; 72128; 72131; 99281; 99283

== ENCOUNTER → 2020-09-16 16:05 | Outpatient (BNVA) | payer MEDICAID, SELFPAY | PROVIDERS: Family Provider Nurse Practitioner; PCP Nurse Practitioner; Visit Provider Nurse Practitioner | DX: Z20.828 Contact with and (suspected) exposure to other viral communicable diseases (principal); M54.17 Radiculopathy, lumbosacral region; J06.9 Acute upper respiratory infection, unspecified | CPT/HCPCS: 87635 ==

== ENCOUNTER → 2020-09-20 09:47 | Outpatient (BNVA) | payer MEDICAID, SELFPAY | PROVIDERS: Family Provider Nurse Practitioner; PCP Nurse Practitioner; Visit Provider Nurse Practitioner | DX: R50.9 Fever, unspecified (principal) | CPT/HCPCS: 85025; 87400; 87635 ==

== ENCOUNTER 2020-09-23 16:40 | Emergency (ER) | payer MEDICAID, SELFPAY ==
[2020-09-23 16:54] VITALS: BP 128/88; PULSE 103; RESP 18; TEMP 36.5; O2SAT 97; BMI 42.8
--- NOTE | 2020-09-23 18:18 | XR_ITS ---
WS: [id number] XR chest 1V portable [id number] REASON FOR EXAM: cough FINDINGS: The chest is unchanged compared to previous examination of 01/14/2020. The heart and mediastinum are within normal limits. No active pulmonary parenchymal or pleural disease is noted. Spinal hardware at the thoracolumbar junction. Moderate degenerative spondylosis in the mid and lower thoracic spine. XR/XR chest 1V portable [id number] IMPRESSION: No acute chest abnormality.
--- NOTE | 2020-09-23 18:20 | ED_ITS ---
HPI - SOB/Dyspnea General: Chief Complaint: Shortness of Breath/Dyspnea Stated Complaint: COUGH, SOB, STATES PCP SENT FOR POSS PNEUMONIA Time Seen by Provider: 09/23/20 18:18 History of Present Illness: HPI Narrative: Patient is a 30-year-old female comes to the ED with cough, shortness of breath and fever. Patient was sent over here by PCP to check for pneumonia. Symptoms started approximately 2 weeks ago. She is seen her PCP multiple times and has been tested for COVID-19 twice both were negative. She has nasal congestion, fever, productive cough. She says she is coughed up some yellow-greenish sputum. She has not been on any antibiotics since onset of symptoms. She did say that she called her PCP today and they sent in a prescription for some antibiotics that she has not picked up yet. Patient says she does have an albuterol inhaler at home. Associated symptoms: Reports fever(s); Deny abdominal pain, chest pain, nausea, orthopnea, palpitations or vomiting Review of Systems Const: Reports: fever(s); Denies: chills or fatigue Eyes: Denies: change in vision or eye discomfort ENMT: Reports: nasal discharge and nasal congestion; Denies: throat pain or odynophagia Card: Denies: chest pain, palpitations, edema, swelling of feet/ankles, dy spnea on exertion or orthopnea Resp: Reports: dyspnea and productive cough; Denies: non-productive cough GI: Denies: abdominal pain, nausea, vomiting, diarrhea, constipation or hematochezia : Denies: flank pain, dysuria or hematuria Musc: Denies: neck pain, back pain or extremity swelling Skin/Breast: Denies: rash or new lesions Neuro: Denies: headache(s), numbness in extremities or weakness in extremities PFS ED PFSH: Medical History Chronic pain Back Obesity, Class III, BMI 40-49.9 (morbid obesity) Surgical History History of back surgery History of section History of tubal ligation Family History Grandmother Cancer Breast and throat Diabetes Mother Cancer Skin Diabetes Social History Smoking and tobacco status: current every day smoker Second hand smoke exposure: No Smoking risk assessment/counseling performed?: Yes Alcohol intake: unknown Desire information about alcohol rehabilitation?: No Counseling given: No Desire information about substance/drug rehabilitation?: No Counseling given: No Adopted: No Caregiver/support person: No Lives independently: Yes Household members: children Housing: Apartment Marital status: Number of children: 2 service: No Current occupational status: unemployed Current occupation: [employer] History of recent travel: No Current gender identity: Female Female Reproductive History: Date of last menstrual period: 08/24/20 Physical Exam Const: COMMON NORMALS: no acute distress, patient oriented x3 and alert GENERAL APPEARANCE: cooperative and comfortable HENMT: COMMON NORMALS: normocephalic HEAD & SCALP: normocephalic MOUTH: Normal oral and palatal mucosa present THROAT: posterior oropharynx normal and uvula midline Neck/C-Spine: COMMON NORMALS: supple GENERAL: Yes normal visual inspection Resp: COMMON NORMALS: normal respiratory effort, No retractions and No use of accessory muscles EFFORT & INSPECTION: Yes able to speak in complete sentences, No tachypneic, No respiratory distress, No labored and Yes Actively coughing productive, strong and hoarse AUSCULTATION: crackles Laterality: left (Crackling in left lung base.) Cardio: COMMON NORMALS: regular rate, regular rhythm, S1 normal heart sound present, S2 normal heart sound present, No gallops present (Cardio), No clicks present (Cardio), No murmurs present (Cardio) and Peripheral pulses 2+ throughout RATE: regular rate RHYTHM: regular rhythm HEART SOUNDS: S1 normal heart sound present and S2 normal heart sound present PERIPHERAL PULSES: Peripheral pulses 2+ throughout GI: COMMON NORMALS: Normal to inspection, nondistended, normoactive bowel sounds present, Soft to palpation, non-tender and no masses PALPATION: Yes Soft to palpation : COMMON NORMALS: Yes no CVA tenderness BLADDER/KIDNEY EXAM: Yes no CVA tenderness Back/Pelvis: COMMON NORMALS: no CVA tenderness Extremity: COMMON NORMALS: normal to inspection and no pedal edema Neuro: COMMON NORMALS: patient oriented x3 and moves all extremities SENSORIUM/ORIENTATION: Yes alert Skin: GENERAL SKIN EXAM: dry skin Course Vital Signs: Vital signs: Vital Signs Temperature 97.7 F 09/23/20 16:54 Pulse Rate 86 09/23/20 20:33 Respiratory Rate 18 09/23/20 16:54 Blood Pressure 128/88 09/23/20 16:54 Pulse Oximetry 94 09/23/20 20:33 MDM - SOB/Dyspnea MDM Narrative: Medical decision making narrative: Patient is a 30-year-old female comes to the ED with 2 weeks of productive cough and was sent here by PCP to be evaluated for pneumonia. Patient has had 2 negative COVID-19 tests recently. Vitals are stable and O2 saturation 97% on room air. Exam noted some crackling in the left lower lung. White blood cell count 12.6. Rest of CBC and CMP was unremarkable. D-dimer and normal range at 0.44. EKG showed normal sinus rhythm with no signs of VT. Chest x-ray showed some lung infiltrates in the left lower lung. Patient was diagnosed with pneumonia and given a shot of Rocephin while here in the ED. She was then discharged with a prescription for antibiotic and told to follow-up with PCP in 7 to 10 days for reevaluation. Return to ED precautions given. Patient understood and agreed with plan. Lab Data: Attestation: I reviewed the patient's lab results. Labs: Lab Results 09/23/20 09/23/20 09/23/20 Range/Units 18:55 18:55 18:55 WBC 12.6 H (4.0-10.0) 10^3/ uL RBC 4.84 (4.1-5.3) 10^6/u L Hgb 11.1 L (11.5-15.3) g/dL Hct 36.9 L (37.0-47.0) % MCV 76.2 L (81-99) fL MCH 22.9 L (28.0-34.0) pg MCHC 30.1 (30.0-36.0) g/dL RDW 16.7 H (12.1-15.1) % Plt Count 357 (130-400) 10^3/c mm MPV 8.4 (7.4-10.4) fL Neut % (Auto) 69.4 % Lymph % (Auto) 22.5 % [place] % (Auto) 5.5 % Eos % (Auto) 1.9 % Baso % (Auto) 0.3 % Neut # (Auto) 8.74 H (1.8-7.7) 10^3/u L Lymph # (Auto) 2.8 (0.8-4.8) 10^3/u L [place] # (Auto) 0.7 (0.2-0.9) 10^3/u L Eos # (Auto) 0.2 (0.0-0.8) 10^3/u L Baso # (Auto) 0.0 (0.0-0.1) 10^3/u L Nucleated RBC % (a uto) 0 % Nucleated RBCs # 0.0 /100WBC D-Dimer 0.44 (0-0.59) ug/mIFE U Sodium 139 (136-145) mmol/L Potassium 4.3 (3.5-5.1) mmol/L Chloride 103 (98-107) mmol/L Carbon Dioxide 28 (22-29) mmol/L Anion Gap 12.3 (5-19) BUN 8 (6-20) mg/dL Creatinine 0.6 (0.5-0.9) mg/dL GFR Calculation 115.9 (90-130) mL/min Glucose 106 (65-115) mg/dL Calculated Osmolal ity 287 (285-295) mOsm/k g Calcium 9.3 (8.5-10.5) mg/dL Total Bilirubin 0.2 (0.15-1.2) mg/dL AST 12 (0-32) U/L ALT 9 (0-33) U/L Alkaline Phosphata se 83 (35-105) IU/L Total Protein 7.7 (6.6-8.7) g/dL Albumin 4.0 (3.5-5.2) g/dL Globulin 3.7 (1.3-4.6) g/dL Imaging Data^: CXR: Attestation: I personally reviewed and interpreted this imaging study as follows: My impression: Some left lower lung infiltrates seen suspected pneumonia. EKG Data^: EKG 1: Attestation: I personally reviewed and interpreted this EKG as follows: EKG Interpretation Date: 09/23/20 Interpretation: Normal sinus rhythm, 92 bpm, no ST segment elevation or depression seen. Discharge Plan Discharge Patient Disposition: Home Clinical Impression: Pneumonia Qualifiers: Pneumonia type: due to unspecified organism Laterality: left Lung location: lower lobe of lung Qualified Code(s): J18.9 - Pneumonia, unspecified organism Condition: Stable Prescriptions: New azithromycin 250 mg tablet See Rx Instructions .ROUTE .COMPLEX Qty: 6 RF: 0 No Action promethazine-DM 6.25-15 mg/5 mL syrup 5 ml PO Q6H PRN (Reason: cough) Qty: 120 RF: 0 albuterol sulfate [ProAir HFA] 90 mcg/actuation HFA aerosol inhaler 2 puff inhalation Q6H PRN (Reason: shortness of breath or wheezing) Qty: 18 RF: 0 doxycycline hyclate [Vibramycin] 100 mg capsule 100 mg PO BID Qty: 20 RF: 0 hydrocodone-acetaminophen 7.5-325 mg tablet 1 tab PO QID@08,12,14,21 RF: 0 Robaxin-750 750 mg tablet 750 mg PO BID@799,1999 RF: 0 Flovent HFA 110 mcg/actuation HFA aerosol inhaler 2 puff inhalation BID@799,1999 RF: 0 Naprosyn 500 mg tablet 500 mg PO BID@799,1999 RF: 0 Cymbalta 30 mg capsule,delayed release(DR/EC) 30 mg PO BID@ RF: 0 Discharge Orders: Discharge ED (Routine); Ordered 09/23/20 Ordered By: Jabier Mcqueen Referrals: Adalgisa Mitchell FNP-C [Primary Care Provider] - Discharge Diet: Regular Discharge Activity: Increase activity as tolerated Patient Instructions: Pneumonia (ED) Activity Restrictions/Additional Instructions: Follow-up with medical provider as directed in 7 to 10 days. Take medications as prescribed. Return to the ER or your medical provider if condition worsens. Please read and understand discharge instructions. If any questions, please ask. Coding Level of Care Code ED District Wildlife Manager for Edy Fwd Exam Comprehensive
--- NOTE | 2020-09-23 18:23 | ECG_ITS ---
[facility] Test Date: 2020-09-23 Pat Name: Jessie Fitzpatrick Department: Room: Gender: Female Industrial Specialist: : 1990 Requested By: Jabier Mcqueen Order Number: [id number] Duran MD: Kayla Avery M.D. Measurements Intervals [place] Rate: 92 P: 39 AK: 160 QRS: 19 QRSD: 80 T: 30 QT: 350 QTc: 433 Interpretive Statements SINUS RHYTHM Compared to ECG 01/14/2020 19:10:11 No significant changes Electronically Signed On 09-24-2020 17:12:43 [employer] by Kayla Avery M.D. [id number]
[2020-09-23 19:04] LABS: Basophils % 0.3 %; Eosinophils # 0.2 10^3/uL (0.0-0.8); Eosinophils % 1.9 %; Hematocrit 36.9 % (37.0-47.0); Hemoglobin 11.1 g/dL (11.5-15.3); Lymphocytes # 2.8 10^3/uL (0.8-4.8); Lymphocytes % 22.5 %; Mean Corpuscular HGB Conc 30.1 g/dL (30.0-36.0); Mean Corpuscular Hemoglobin 22.9 pg (28.0-34.0); Mean Corpuscular Volume 76.2 fL (81-99); Mean Platelet Volume 8.4 fL (7.4-10.4); Monocytes # 0.7 10^3/uL (0.2-0.9); Monocytes % 5.5 %; Neutrophils # 8.74 10^3/uL (1.8-7.7); Neutrophils % 69.4 %; Nucleated Red Blood Cells % 0 %; Platelet Count 357 10^3/cmm (130-400); Red Blood Count 4.84 10^6/uL (4.1-5.3); Red Cell Distribution Width 16.7 % (12.1-15.1); White Blood Count 12.6 10^3/uL (4.0-10.0)
[2020-09-23 19:16] LABS: D Dimer 0.44 ug/mIFEU (0-0.59)
[2020-09-23 19:21] LABS: Alanine Aminotransferase 9 U/L (0-33); Alkaline Phosphatase 83 IU/L (35-105); Anion Gap 12.3 (5-19); Aspartate Amino Transferase 12 U/L (0-32); Blood Urea Nitrogen 8 mg/dL (6-20); Calcium 9.3 mg/dL (8.5-10.5); Carbon Dioxide 28 mmol/L (22-29); Chloride 103 mmol/L (98-107); Globulin 3.7 g/dL (1.3-4.6); Glomerular Filtration Rate 115.9 mL/min (90-130); Glucose 106 mg/dL (65-115); Osmolality Calculated 287 mOsm/kg (285-295); Potassium 4.3 mmol/L (3.5-5.1); Sodium 139 mmol/L (136-145); Total Bilirubin 0.2 mg/dL (0.15-1.2); Total Protein 7.7 g/dL (6.6-8.7)
[2020-09-23] MEDS: lidocaine 1% INJ 20 mL IM (20:08)
[2020-09-23] MEDS: cefTRIAXone 1,000 mg SDV 1000 MG IM (20:09)
[2020-09-23 20:33] VITALS: PULSE 86; O2SAT 94
== END 2020-09-23 20:34 | disposition home or self-care (01) ==
PROVIDERS: Emergency Provider Physician Assistant; PCP Nurse Practitioner
DX: J18.9 Pneumonia, unspecified organism (principal); F17.210 Nicotine dependence, cigarettes, uncomplicated
CPT/HCPCS: 12345; 71045; 80053; 85025; 85378; 93005; 96372; 99281; 99283; J0696

== ENCOUNTER 2020-10-04 10:45 | Outpatient (CLI) | payer MEDICAID, SELFPAY ==
--- NOTE | 2020-10-04 11:00 | CT_ITS ---
WS: [id number] CTA scan of the chest with IV contrast. Additional two-dimensional coronal and sagittal reconstructio n and MIP images was performed. 10/04/2020 Clinical Data: R06.02 - Shortness of breath Comparison: Portable chest, 09/23/2020. DLP: 738.[address] scans at [facility] use at least one of these dose optimization techniques: automat ed exposure control; mA and/or kV adjustment per patient size (includes targeted exams where dose is matched to clinical indication); or iterative reconstruction. Findings: The central pulmonary arteries and peripheral pulmonary arteries fill normally with no evidence of in traluminal filling defects. No pulmonary embolic disease is noted. No nodules, masses or effusions are seen. The heart size is normal with no pericardial effusion. No p neumonia or pneumothorax is seen. The pulmonary arterial system and thoracic aorta demonstrate no abn ormalities or dilatations. The trachea bifurcates into the bronchi. There is no axillary or significa nt mediastinal adenopathy. The thyroid gland shows normal enhancement. The trachea bifurcates into th e bronchi. The upper abdomen shows no abnormalities. The visualized liver, spleen, pancreas, gallbladder, adrena l glands and superior poles of the kidneys are not remarkable. The patient has had a posterior lumbar fusion. CT/CT angio chest PE protcl [id number] Impression: 1. Negative for pulmonary embolic disease. 2. Negative for acute cardiopulmonary disease.
[2020-10-04] MEDS: iohexol 350 mg/mL 100 mL Btl IV (11:12)
== END 2020-10-04 10:46 | disposition home or self-care (01) ==
LOC: RADWPI 10:47
PROVIDERS: PCP Nurse Practitioner; Visit Provider Nurse Practitioner
DX: R06.02 Shortness of breath (principal)
CPT/HCPCS: 71275; Q9967

== ENCOUNTER → 2020-10-07 09:20 | Outpatient (BNVA) | payer MEDICAID, SELFPAY | PROVIDERS: PCP Nurse Practitioner; Referring Provider Nurse Practitioner; Visit Provider Anesthesiology Pain Medicine | DX: M54.9 Dorsalgia, unspecified (principal); F17.210 Nicotine dependence, cigarettes, uncomplicated | CPT/HCPCS: G0463 ==

== ENCOUNTER 2020-12-26 18:54 | Emergency (ER) | payer MEDICAID, SELFPAY ==
[2020-12-26 19:17] VITALS: BP 111/74; PULSE 88; RESP 18; TEMP 36.7; O2SAT 97; BMI 38.0
--- NOTE | 2020-12-26 19:50 | ED_ITS ---
HPI - Back Pain/Injury General: Chief Complaint: Back Pain/Injury Stated Complaint: BACK INJURY/DIFFICULTY WALKING Time Seen by Provider: 12/26/20 19:11 Source: patient Mode of arrival: ambulatory Limitations: no limitations History of Present Illness: HPI Narrative: 30-year-old female patient presents to the emergency department with acute onset of worsening low back pain. She reports folding close and placing them in boxes earlier today. She reports while sitting down, developed onset of worsening low back pain with pain radiating down her right leg. She suffers from chronic low back pain, remains on hydrocodone through pain management in the [facility] in [place]. She reports history of fracture due to trauma. She states is not able to move or sit down without excruciating low back pain. She states pain has changed, feels her back is locking up. She has not received muscle relaxers. She denies bowel or bladder incontinence. She reports pain radiating to the right lower extremity. She denies falls, reports weakness of the right lower extremity. MD elicited complaint: back pain Pertinent past history: prior back pain and back surgery Timing: constant Severity: moderate Quality: sharp and aching Location: lumbar spine Radiation: buttocks, right upper leg and right leg below the knee Exacerbating factors: movement and walking Relieving factors: supine and sitting upright Context: turning/twisting and bending Associated symptoms: Reports difficulty walking and tingling/numbness/burning; Deny abdominal pain, chills, dysuria, fever(s), nausea or vomiting Treatments prior to arrival: prescription analgesics Work related injury: No Review of Systems General: Reports: 10 or more systems reviewed and unremarkable except in HPI and below Const: Denies: fever(s), chills or diaphoresis Eyes: Denies: blurry vision or eye redness ENMT: Denies: throat pain, dental pain or disequilibrium Card: Denies: chest pain, palpitations or irregular heart rhythm Resp: Denies: dyspnea, productive cough, non-productive cough or wheezing GI: Denies: abdominal pain, nausea or vomiting : Denies: difficulty voiding or dysuria Musc: Reports: back pain; Denies: neck pain, extremity swelling or joint swelling Skin/Breast: Denies: rash or pruritus Neuro: Reports: numbness in extremities, weakness in extremities and difficulty walking; Denies: frequent falls or confusion Psych: Denies: anxiety, depression or sleeping more Hugo/Lymph: Denies: easy bruising PFSH ED PFSH: Medical History Chronic pain Back Obesity, Class III, BMI 40-49.9 (morbid obesity) Surgical History History of back surgery History of section History of tubal ligation Family History Grandmother Cancer Breast and throat Diabetes Mother Cancer Skin Diabetes Social History Smoking and tobacco status: current every day smoker Second hand smoke exposure: No Smoking risk assessment/counseling performed?: Yes Alcohol intake: unknown Desire information about alcohol rehabilitation?: No Counseling given: No Desire information about substance/drug rehabilitation?: No Counseling given: No Adopted: No Caregiver/support person: No Lives independently: Yes Household members: children Housing: Apartment Marital status: Number of children: 2 service: No Current occupational status: unemployed Current occupation: [employer] History of recent travel: No Current gender identity: Female Female Reproductive History: Date of last menstrual period: 12/19/20 Physical Exam Const: COMMON NORMALS: no acute distress, patient oriented x3, healthy appearing and alert GENERAL APPEARANCE: cooperative, well kempt, well developed, anxious and well hydrated NUTRITIONAL APPEARANCE: obese BRANDIE ENTATION/CONSCIOUSNESS: Yes awake, Yes oriented to person, Yes oriented to place and Yes oriented to time HENMT: COMMON NORMALS: normocephalic, Normal external nose present and moist oral mucous membranes HEAD & SCALP: normocephalic NOSE: Normal external nose present Eye: COMMON NORMALS: Equal, round and reactive pupils present and EOMs intact bilaterally GENERAL EYE: appearance normal, both eyes and all related structures PUPIL: Yes Equal, round and reactive pupils present Neck/C-Spine: COMMON NORMALS: full ROM, no lymphadenopathy, supple and no meningeal signs GENERAL: Yes normal visual inspection and Yes trachea midline CERVICAL SPINE: Yes cervical ROM normal, No pain with cervical ROM, No Cervical spine tenderness, No Paracervical muscle tenderness and No Trapezius muscle tenderness Lymph: LYMPHATIC: no lymphadenopathy noted Chest: COMMONS NORMALS: normal inspection of the chest Resp: COMMON NORMALS: normal respiratory effort, No retractions, No use of accessory muscles and clear to auscultation bilaterally EFFORT & INSPECTION: Yes able to speak in complete sentences AUSCULTATION: clear to auscultation bilaterally Cardio: COMMON NORMALS: regular rhythm, S1 normal heart sound present and S2 normal heart sound present RHYTHM: regular rhythm HEART SOUNDS: S1 normal heart sound present and S2 normal heart sound present GI: COMMON NORMALS: Soft to palpation and non-tender INSPECTION: Yes normal to inspection PALPATION: Yes Soft to palpation : COMMON NORMALS: Yes no CVA tenderness BLADDER/KIDNEY EXAM: Yes no CVA tenderness Back/Pelvis: COMMON NORMALS: no CVA tenderness, thoracic and lumbar spine normal to inspection and no thoracic nor lumbar tenderness THORACIC SPINE/UPPER BACK: Yes normal to inspection, No thoracic spinal tenderness, No paraspinal muscle tenderness and No paraspinal muscle spasm LUMBAR SPINE/LOWER BACK: Yes ROM limited, Yes pain with ROM, Yes lumbar spinal tenderness Lumbar spinal tenderness location: L3, L4 and L5, Yes paraspinal muscle tenderness Lumbar paraspinal muscle tenderness: right, Yes paraspinal muscle spasm Lumbar paraspinal muscle spasm: right, Yes straight leg raise positive right and Yes bend over test abnormal PELVIS: Yes buttocks normal SACROILIAC JOINTS: Yes SI joint(s) abnormal (rt) SI joint details: tender to palpation and pain elicited by compression of iliac crest maneuver SACRUM: no ecchymosis and no erythema COCCYX: no swelling Extremity: COMMON NORMALS: normal to inspection, capillary refill normal, no clubbing, cyanosis or edema and no pedal edema GENERAL: Yes normal exam except as noted Neuro: COMMON NORMALS: patient oriented x3 and no focal motor deficits SENSORIUM/ORIENTATION: Yes alert, Yes oriented to person, Yes oriented to place and Yes oriented to time MENINGEAL SIGNS: Yes no meningeal signs SPEECH: speech normal MONOFILAMENT EXAM PERFORMED: Yes Monofilament Exam (small fiber function): L 5th metatarsals: normal, L great toe: normal, L 3rd toe: normal, L 5th toe: normal, R 5th metatarsals: normal, R great toe: normal, R 3rd toe: normal and R 5th toe: normal MOTOR EXAM: Abnormal motor strength present (3/5 RLE; 5/5 LLE) DEEP TENDON REFLEXES: Right patellar reflex intensity grade: 1+, Left patellar reflex intensity grade: 2+, Right ankle reflex intensity grade: 1+ and Left ankle reflex intensity grade: 2+ PLANTAR REFLEX: downgoing: right and left Psych: COMMON NORMALS: mental status grossly normal, Normal thought process present and cooperative APPEARANCE: Yes well kempt ACTIVITY/MOTOR BEHAVIOR: Yes appropriate eye contact THOUGHT PROCESS: Normal thought process present Skin: COMMON NORMALS: no rashes or lesions noted and turgor normal GENERAL SKIN EXAM: no rashes or lesions noted and turgor normal Course Vital Signs: Vital signs: Vital Signs Temperature 98.0 F 12/26/20 19:17 Pulse Rate 89 12/26/20 22:04 Respiratory Rate 16 12/26/20 22:04 Blood Pressure 108/73 12/26/20 22:04 Pulse Oximetry 99 12/26/20 22:04 MDM - Back Pain/Injury MDM Narrative: Medical decision making narrative: 30-year-old female patient with chronic low back pain presents to the emergency department due to increased pain of the lumbar spine and right lower extremity radiculopathy. She is under the care of pain management, takes hydrocodone on a daily basis. She reports difficulty with ambulation and walking with right lower extremity weakness after folding close and placing in boxes while in bent over position. Reports pain at onset of sitting down later in the day. CT scan of the lumbar spine completed secondary to complaints of weakness of the right lower extremity and increased pain. Stable lower lumbar degenerative disc and joint disease noted, surgical changes of T10 and L1 noted. No acute fractures appreciated. Morphine and Zofran administered for pain, she did develop nausea after morphine administered, she received Pepcid and Benadryl which resolved nausea. She reports pain is some better, Lidoderm patch and prednisone with take home Robaxin provided. She received prescription of Medrol Dosepak with ibuprofen and Robaxin with encouraged follow-up with primary care provider if pain is not improved in the next 4 to 5 days. Imaging Data^: Other Xray: Radiologist's impression: [facility] [address] [place] [address] CT Scan Report Signed Patient: Jessie Fitzpatrick Unit #: [id number] : 1990 Age/Sex: 30 / F ADM Date: 12/26/20 Loc: ER Room/Bed: Attending Dr: Ordering Provider/Ordering MD: Bell Peguero Date of Service: 12/26/20 Procedure(s): CT lumbar spine wo con* [id number] Accession Number(s): [id number] Report Number: [id number] PROCEDURE INFORMATION: Exam: CT Lumbar Spine Without Contrast Exam date and time: 12/26/2020 8:24 PM Age: 30 years old Clinical indication: Weakness; Low back pain; Prior surgery; Additional info: Lbp with sciatica TECHNIQUE: Imaging protocol: Computed tomography images of the lumbar spine without contrast. Radiation optimization: All CT scans at this facility use at least one of these dose optimization techniques: automated exposure control; mA and/or kV adjustment per patient size (includes targeted exams where dose is matched to clinical indication); or iterative reconstruction. COMPARISON: CT lumbar spine wo con* [id number] 09/13/2020 8:58 PM RADIATION DOSE METRICS: Total DLP (mGy-cm): 3073.62 FINDINGS: Vertebrae: There are normal vertebral body heights. There is normal vertebral body alignment. There is posterior fusion hardware from T10 to L1. There is a fusion cage at T11-12. Laminectomy has been performed at T11-12. Surgical defect is present in the right pedicle at T12. No fracture. Discs/Spinal canal/Neural foramina: Mild canal stenosis at L3-L4 secondary to broad-based disc protrusion and ligamentum flavum hypertrophy. No foraminal stenosis. Severe canal stenosis at L4-L5 secondary to disc protrusion in ligamentum flavum hypertrophy. There is mild bilateral foraminal stenosis. Moderate to severe canal stenosis at L5-S1 secondary to disc protrusion and ligamentum flavum hypertrophy. There is mild bilateral foraminal stenosis. There is mild diffuse disc space narrowing. Soft tissues: Unremarkable. CT/CT lumbar spine wo con* [id number] IMPRESSION: 1. No fracture. 2. Stable lower lumbar degenerative disc and joint disease which is most severe at L4-L5. 3. Surgical changes from T10 and L1. Radiation Dose CTDIVOL = (mGy): DLP = 3073.62 (mGy-cm) Dictated By: Dakota Warner Signed By: Dakota Warner Signed Date/Time: 12/26/202158 DD/ 56 Discharge Plan Discharge Patient Disposition: Home Clinical Impression: Strain of fascia of lower back Chronic lower back pain Qualifiers: Back pain laterality: right Sciatica presence: with sciatica Sciatica laterality: sciatica of right side Qualified Code(s): M54.41 - Lumbago with sciatica, right side Condition: Stable Prescriptions: New methocarbamol 750 mg tablet 750 mg PO Q6H Qty: 10 RF: 0 IBU 600 mg tablet 600 mg PO TID PRN (Reason: pain) Qty: 20 RF: 0 methylprednisolone 4 mg tablets,dose pack See Rx Instructions .ROUTE .COMPLEX Qty: 21 RF: 0 No Action albuterol sulfate [ProAir HFA] 90 mcg/actuation HFA aerosol inhaler 2 puff inhalation Q6H PRN (Reason: shortness of breath or wheezing) Qty: 18 RF: 2 hydrocodone-acetaminophen [[place]] 10-325 mg Tablet 1 tab PO QID PRN (Reason: Pain) RF: 0 Emergen-C 1,000 mg Powder Effervescent In Packet 1 ea PO DAILY RF: 0 Flonase Allergy Relief 50 mcg/actuation spray,suspension 2 spray intranasal DAILY PRN (Reason: Allergy Symptoms) RF: 0 Flovent HFA 110 mcg/actuation HFA aerosol inhaler 2 puff inhalation BID RF: 0 Discharge Orders: Discharge ED (Routine); Ordered 12/26/20 Ordered By: Bell Peguero Referrals: Adalgisa Mitchell, [employer] [Primary Care Provider] - Discharge Diet: Usual diet Discharge Activity: Limit activity as instructed Patient Instructions: Low Back Strain (ED), Lumbar Radiculopathy (ED), Chronic Back Pain (ED), Opioid Safety Activity Restrictions/Additional Instructions: Continue follow-up with pain management Avoid twisting bending or lifting greater than 5 pounds May apply Salonpas or [id number] lidocaine patches to help with pain, use as directed Apply cool compresses alternate with warm moist heat to the affected area as needed for pain Follow-up with your primary care provider if not improved in the next 4 to 5 days Take medication prescribed with food to avoid stomach upset Do not drive or operate heavy machinery with use of methocarbamol as sedation can occur You develop bowel or bladder incontinence, return to the emergency room immediately Coding Level of Care Code ED Highway Inspector for Edy Chaudhary Exam Comprehensive
[2020-12-26 20:01] VITALS: BP 124/83; PULSE 101; RESP 19; O2SAT 98
--- NOTE | 2020-12-26 20:02 | CTR_ITS ---
PROCEDURE INFORMATION: Exam: CT Lumbar Spine Without Contrast Exam date and time: 12/26/2020 8:24 PM Age: 30 years old Clinical indication: Weakness; Low back pain; Prior surgery; Additional info: Lbp with sciatica TECHNIQUE: Imaging protocol: Computed tomography images of the lumbar spine without contrast. Radiation optimization: All CT scans at this facility use at least one of these dose optimization techniques: automated exposure control; mA and/or kV adjustment per patient size (includes targeted exams where dose is matched to clinical indication); or iterative reconstruction. COMPARISON: CT lumbar spine wo con* [id number] 09/13/2020 8:58 PM RADIATION DOSE METRICS: Total DLP (mGy-cm): 3073.62 FINDINGS: Vertebrae: There are normal vertebral body heights. There is normal vertebral body alignment. There is posterior fusion hardware from T10 to L1. There is a fusion cage at T11-12. Laminectomy has been performed at T11-12. Surgical defect is present in the right pedicle at T12. No fracture. Discs/Spinal canal/Neural foramina: Mild canal stenosis at L3-L4 secondary to broad-based disc protrusion and ligamentum flavum hypertrophy. No foraminal stenosis. Severe canal stenosis at L4-L5 secondary to disc protrusion in ligamentum flavum hypertrophy. There is mild bilateral foraminal stenosis. Moderate to severe canal stenosis at L5-S1 secondary to disc protrusion and ligamentum flavum hypertrophy. There is mild bilateral foraminal stenosis. There is mild diffuse disc space narrowing. Soft tissues: Unremarkable. CT/CT lumbar spine wo con* [id number] IMPRESSION: 1. No fracture. 2. Stable lower lumbar degenerative disc and joint disease which is most severe at L4-L5. 3. Surgical changes from T10 and L1. Radiation Dose CTDIVOL = (mGy): DLP = 3073.62 (mGy-cm)
[2020-12-26 20:12] VITALS: RESP 18; O2SAT 100
[2020-12-26] MEDS: morphine 4 mg/mL SDV 1 mL IVP (20:12)
[2020-12-26] MEDS: ondansetron 2 mg/ML SDV 2 mL 4 MG IVP (20:12)
[2020-12-26] MEDS: orphenadrine 30 mg/mL Inj 2 mL 60 MG IVP (20:12)
[2020-12-26] MEDS: diphenhydrAMINE 50 mg/mL SDV 1mL 25 MG IVP (21:22)
[2020-12-26] MEDS: famotidine 20 mg/2 mL INJ 40 MG IVP (21:22)
[2020-12-26 22:04] VITALS: BP 108/73; PULSE 89; RESP 16; O2SAT 99
[2020-12-26] MEDS: predniSONE 20 mg Tablet PO (22:39)
[2020-12-26] MEDS: methocarbamol 750 mg Tablet PO (22:40)
[2020-12-26] MEDS: lidocaine 5% Patch 1 PATCH TOPICAL (22:40)
[2020-12-26 22:43] VITALS: BP 123/75; PULSE 76; RESP 17; O2SAT 99
== END 2020-12-26 22:42 | disposition home or self-care (01) ==
PROVIDERS: Emergency Provider Nurse Practitioner Family; PCP Nurse Practitioner
DX: M54.41 Lumbago with sciatica, right side (principal); G89.29 Other chronic pain; S39.012A Strain of muscle, fascia and tendon of lower back, initial encounter; F17.210 Nicotine dependence, cigarettes, uncomplicated; X50.9XXA Other and unspecified overexertion or strenuous movements or postures, initial encounter
CPT/HCPCS: 72131; 96374; 96375; 99283; J1200; J2270; J2360; J2405; J3490; J7512

== ENCOUNTER → 2021-01-03 16:20 | Outpatient (BNVA) | payer MEDICAID, SELFPAY | PROVIDERS: PCP Nurse Practitioner; Visit Provider Nurse Practitioner Family | DX: J02.9 Acute pharyngitis, unspecified (principal) | CPT/HCPCS: 87071; 87880 ==

== ENCOUNTER 2021-01-04 14:06 | Emergency (ER) | payer MEDICAID, SELFPAY ==
[2021-01-04 14:08] VITALS: BP 124/63; PULSE 86; RESP 17; TEMP 36.3; O2SAT 99; BMI 38.0
--- NOTE | 2021-01-04 14:22 | ED_ITS ---
HPI - Nausea/Vomiting/Diarrhea General: Chief complaint: Nausea/Vomiting/Diarrhea Stated complaint: NAUSEA Time Seen by Provider: 01/04/21 14:08 Source: patient and family Mode of arrival: EMS Limitations: no limitations History of Present Illness: HPI Narrative: 30-year-old female was at a restaurant eating hamburger, she ate half of it, then went to the restroom. While she was waiting in line for the restroom. She suddenly had sharp epigastric cramping pains, became very dizzy, with tingling and numbness all over her body, by the time she got to the stall, she started throwing up, and became very weak, called her mother to come help her get off the toilet. Her mother said she was very flushed and weak. They called EMS, who gave her Zofran, by the time she got to the ED, her symptoms had mostly resolved. She is not complaining of any dizziness or numbness. She not having any abdominal pain or nausea anymore. She was seen in outpatient clinic yesterday for sinus congestion, sore throat. Had a negative strep test, prescribe Zithromax(which she has not started yet), her work is requiring Covid test result before she can go back to work. Denies history of bariatric surgery. MD elicited complaint: nausea and vomiting Associated nausea: Yes Associated symtoms: Reports dizziness and nausea; Denies altered mental status, anxiety, change in vision, chest pain, diaphoresis, fatigue, headache(s) or palpitations Review of Systems General: Reports: 10 or more systems reviewed and unremarkable except in HPI and below Const: Denies: fever(s), chills, body aches, change in weight, fatigue or diaphoresis Eyes: Denies: change in vision, blurry vision or blind spots ENMT: Reports: throat pain; Denies: uvular edema, hoarseness, mouth pain or swelling of lips/tongue Card: Reports: lightheadedness and pre-syncope; Denies: chest pain, palpitations, irregular heart rhythm or edema Resp: Denies: dyspnea, productive cough, wheezing or stridor GI: Reports: abdominal pain, nausea, vomiting and heartburn; Denies: diarrhea or GI cramping Musc: Denies: neck pain, back pain or extremity swelling Skin/Breast: Denies: rash, pruritus, erythema or photosensitivity Neuro: Reports: numbness in extremities, weakness in extremities and dizziness; Denies: headache(s) Psych: Denies: anxiety Endo: Denies: polyuria, polydipsia or tired all the time [facility], [facility] PFSH: Medical History Chronic pain Back Obesity, Class III, BMI 40-49.9 (morbid obesity) Surgical History History of back surgery History of section History of tubal ligation Family History Grandmother Cancer Breast and throat Diabetes Mother Cancer Skin Diabetes Social History Smoking and tobacco status: current every day smoker Second hand smoke exposure: No Smoking risk assessment/counseling performed?: Yes Alcohol intake: unknown Desire information about alcohol rehabilitation?: No Counseling given: No Desire information about substance/drug rehabilitation?: No Counseling given: No Adopted: No Caregiver/support person: No Lives independently: Yes Household members: children Housing: Apartment Marital status: Number of children: 2 service: No Current occupational status: unemployed Current occupation: [employer] History of recent travel: No Current gender identity: Female Female Reproductive History: Date of last menstrual period: 12/19/20 Physical Exam Const: COMMON NORMALS: no acute distress, patient oriented x3 and alert EXAM LIMITATIONS: no altered mental status GENERAL APPEARANCE: cooperative and comfortable; not in distress, not lethargic and not ill appearing NUTRITIONAL APPEARANCE: overweight ORIENTATION/CONSCIOUSNESS: Yes awake, Yes oriented to person and Yes oriented to place; not lethargic HENMT: COMMON NORMALS: normocephalic, atraumatic and EAC's normal HEAD & SCALP: normocephalic and atraumatic FACE & SINUS: normal facial exam and sinuses nontender EXTERNAL AUDITORY CANAL: EAC's normal THROAT: no uvular edema Chest: COMMONS NORMALS: normal inspection of the chest Resp: COMMON NORMALS: normal respiratory effort, No use of accessory muscles and clear to auscultation bilaterally EFFORT & INSPECTION: Yes able to speak in complete sentences AUSCULTATION: clear to auscultation bilaterally GI: COMMON NORMALS: Normal to inspection, nondistended, normoactive bowel sounds present, Soft to palpation, non-tender and No hepatosplenomegaly present PALPATION: Yes Soft to palpation and Yes No hepatosplenomegaly present Neuro: COMMON NORMALS: patient oriented x3 SENSORIUM/ORIENTATION: Yes alert, Yes oriented to person, Yes oriented to place and No lethargic Skin: COMMON NORMALS: no rashes or lesions noted and turgor normal GENERAL SKIN EXAM: no rashes or lesions noted, turgor normal, no ecchymo, no erythema and no jaundice Course Vital Signs: Vital signs: Vital Signs Temperature 97.3 F L 01/04/21 14:08 Pulse Rate 85 01/04/21 16:34 Respiratory Rate 18 01/04/21 16:34 Blood Pressure 124/63 01/04/21 16:34 Pulse Oximetry 96 01/04/21 16:34 MDM - Nausea/Vomiting/Diarrhea MDM Narrative: Medical decision making narrative: 30-year-old with upper respiratory symptoms for several days came to the ED after an episode of dizziness, nausea and vomiting immediately after eating part of hamburger when she was at a restaurant. No further nausea, abdominal pain or dizziness. By the time she came to the ED her symptoms have pretty much resolved. It has been recommended by her PCP that she get tested for Covid, which we tested for, results were negative. Slight transaminitis, otherwise labs were unremarkable. UA appears contaminated. No pain on abdominal exam. Vital signs stable, okay to return to work tomorrow. Return to the ER if she has any recurrent symptoms. I told her that there was no signs of bacterial infection on exam, and I recommended not starting the Zithromax unless something changes. Differential Diagnosis: N/V/D differential diagnosis: Likely food poisoning, gastroenteritis, drug-induced nausea and vomiting and dehydration Medical Records: Attestation: I reviewed the patient's medical records. Lab Data: Attestation: I reviewed the patient's lab results. Labs: Lab Results 01/04/21 01/04/21 01/04/21 Range/Units 14:41 14:45 14:51 WBC 7.0 (4.0-10.0) 10^3/ uL RBC 4.27 (4.1-5.3) 10^6/u L Hgb 10.7 L (11.5-15.3) g/dL Hct 34.7 L (37.0-47.0) % MCV 81.3 (81-99) fL MCH 25.1 L (28.0-34.0) pg MCHC 30.8 (30.0-36.0) g/dL RDW 15.7 H (12.1-15.1) % Plt Count 271 (130-400) 10^3/c mm MPV 8.7 (7.4-10.4) fL Neut % (Auto) 66.6 % Lymph % (Auto) 23.9 % Perkins % (Auto) 5.8 % Eos % (Auto) 3.0 % Baso % (Auto) 0.4 % Neut # (Auto) 4.63 (1.8-7.7) 10^3/u L Lymph # (Auto) 1.7 (0.8-4.8) 10^3/u L Perkins # (Auto) 0.4 (0.2-0.9) 10^3/u L Eos # (Auto) 0.2 (0.0-0.8) 10^3/u L Baso # (Auto) 0.0 (0.0-0.1) 10^3/u L Nucleated RBC % (a uto) 0 % Nucleated RBCs # 0.0 /100WBC Sodium (136-145) mmol/L Potassium (3.5-5.1) mmol/L Chloride (98-107) mmol/L Carbon Dioxide (22-29) mmol/L Anion Gap (5-19) BUN (6-20) mg/dL Creatinine (0.5-0.9) mg/dL GFR Calculation (90-130) mL/min Glucose (65-115) mg/dL Calculated Osmolal ity (285-295) mOsm/k g Calcium (8.5-10.5) mg/dL Total Bilirubin (0.15-1.2) mg/dL AST (0-32) U/L ALT (0-33) U/L Alkaline Phosphata se (35-105) IU/L Total Protein (6.6-8.7) g/dL Albumin (3.5-5.2) g/dL Globulin (1.3-4.6) g/dL HCG, Qual (Negative) Urine Color Yellow (Yellow) Urine Appearance Hazy A (CLEAR) Urine pH 5 (5-7) Ur Specific Gravit y 1.025 (1.005-1.030) Urine Protein Neg (Negative) Urine Glucose (UA) Norm (Normal) Urine Ketones Negative (Negative) Urine Blood Neg (Negative) Urine Nitrate Negative (Negative) Urine Bilirubin Neg (Negative) Urine Urobilinogen 1 H (Negative) mg/dL Ur Leukocyte Krys ase Trace H (Negative) Urine RBC None (0-2) /hpf Urine WBC 25-40 H (0-5) /hpf Ur Squamous Epith Cells 15-25 H (0-5) /hpf Amorphous Sediment Not Reportable Urine Bacteria 2+ H (NONE) /hpf Urine Mucus 1+ /hpf SARS-CoV-2 Ag (Rap id) Negative (Negative) 01/04/21 01/04/21 Range/Units 14:51 14:51 WBC (4.0-10.0) 10^3/ uL RBC (4.1-5.3) 10^6/u L Hgb (11.5-15.3) g/dL Hct (37.0-47.0) % MCV (81-99) fL MCH (28.0-34.0) pg MCHC (30.0-36.0) g/dL RDW (12.1-15.1) % Plt Count (130-400) 10^3/c mm MPV (7.4-10.4) fL Neut % (Auto) % Lymph % (Auto) % Perkins % (Auto) % Eos % (Auto) % Baso % (Auto) % Neut # (Auto) (1.8-7.7) 10^3/u L Lymph # (Auto) (0.8-4.8) 10^3/u L Perkins # (Auto) (0.2-0.9) 10^3/u L Eos # (Auto) (0.0-0.8) 10^3/u L Baso # (Auto) (0.0-0.1) 10^3/u L Nucleated RBC % (a uto) % Nucleated RBCs # /100WBC Sodium 136 (136-145) mmol/L Potassium 3.4 L (3.5-5.1) mmol/L Chloride 102 (98-107) mmol/L Carbon Dioxide 27 (22-29) mmol/L Anion Gap 10.4 (5-19) BUN 11 (6-20) mg/dL Creatinine 0.6 (0.5-0.9) mg/dL GFR Calculation 115.9 (90-130) mL/min Glucose 103 (65-115) mg/dL Calculated Osmolal ity 282 L (285-295) mOsm/k g Calcium 8.8 (8.5-10.5) mg/dL Total Bilirubin 0.2 (0.15-1.2) mg/dL AST 74 H (0-32) U/L ALT 44 H (0-33) U/L Alkaline Phosphata se 79 (35-105) IU/L Total Protein 6.8 (6.6-8.7) g/dL Albumin 3.7 (3.5-5.2) g/dL Globulin 3.1 (1.3-4.6) g/dL HCG, Qual Negative (Negative) Urine Color (Yellow) Urine Appearance (CLEAR) Urine pH (5-7) Ur Specific Gravit y (1.005-1.030) Urine Protein (Negative) Urine Glucose (UA) (Normal) Urine Ketones (Negative) Urine Blood (Negative) Urine Nitrate (Negative) Urine Bilirubin (Negative) Urine Urobilinogen (Negative) mg/dL Ur Leukocyte Krys ase (Negative) Urine RBC (0-2) /hpf Urine WBC (0-5) /hpf Ur Squamous Epith Cells (0-5) /hpf Amorphous Sediment Urine Bacteria (NONE) /hpf Urine Mucus /hpf SARS-CoV-2 Ag (Rap id) (Negative) Discharge Plan Discharge Patient Disposition: Home Clinical Impression: Pre-syncope Vomiting Qualifiers: Vomiting type: unspecified Vomiting Intractability: non-intractable Nausea presence: without nausea Qualified Code(s): R11.11 - Vomiting without nausea Condition: Stable Prescriptions: No Action prednisone 5 mg tablet See Rx Instructions PO DAILY Qty: 26 RF: 0 azithromycin [Zithromax Z-David] 250 mg tablet See Rx Instructions PO .COMPLEX Qty: 6 RF: 0 albuterol sulfate [ProAir HFA] 90 mcg/actuation HFA aerosol inhaler 2 puff inhalation Q6H PRN (Reason: shortness of breath or wheezing) Qty: 18 RF: 2 methocarbamol 750 mg tablet 750 mg PO Q8H PRN (Reason: MUSCLE SPASMS) RF: 0 gabapentin 300 mg capsule 300 mg PO TID@08,12,20 RF: 0 hydrocodone-acetaminophen [Covel] 10-325 mg Tablet 1 tab PO QID PRN (Reason: Pain) RF: 0 Emergen-C 1,000 mg Powder Effervescent In Packet 1 ea PO DAILY RF: 0 fluticasone propionate [Flonase Allergy Relief] 50 mcg/actuation spray,suspension 2 spray intranasal DAILY PRN (Reason: Allergy Symptoms) RF: 0 Flovent HFA 110 mcg/actuation HFA aerosol inhaler 2 puff inhalation BID RF: 0 Discharge Orders: Discharge ED (Routine); Ordered 01/04/21 Ordered By: Kelsey Akbar Referrals: Adalgisa Mitchell, SCHOOL SECRETARY-C [Primary Care Provider] - Discharge Diet: Advance as tolerated Discharge Activity: Resume usual activity Patient Instructions: Near Syncope (ED), Vomiting - Adult Activity Restrictions/Additional Instructions: Rest, drink plenty of fluids, slowly increase your food intake as tolerated. There are no signs of infection in your blood work, so I would recommend that you hold off on taking the Z-David unless something gets worse or you develop a fever. Your Covid test was negative negative Follow-up with your primary care doctor in the next 2 to 3 days to make sure your symptoms are improving. Avoid high fat foods and meat until you are feeling back to normal. Return immediately to the ER if you develop fever, abdominal pain, recurrent dizziness, or any other concerning symptoms. Stand Alone Forms: Work/School Release Coding Level of Care Code ED Inspector [employer] for [employer] Fwd Exam Expanded Problem Focused
[2021-01-04 15:05] LABS: HCG Qualitative Urine. Negative (Negative)
[2021-01-04 15:06] LABS: Basophils % 0.4 %; Eosinophils # 0.2 10^3/uL (0.0-0.8); Hematocrit 34.7 % (37.0-47.0); Hemoglobin 10.7 g/dL (11.5-15.3); Lymphocytes # 1.7 10^3/uL (0.8-4.8); Lymphocytes % 23.9 %; Mean Corpuscular HGB Conc 30.8 g/dL (30.0-36.0); Mean Corpuscular Hemoglobin 25.1 pg (28.0-34.0); Mean Corpuscular Volume 81.3 fL (81-99); Mean Platelet Volume 8.7 fL (7.4-10.4); Monocytes # 0.4 10^3/uL (0.2-0.9); Monocytes % 5.8 %; Neutrophils # 4.63 10^3/uL (1.8-7.7); Neutrophils % 66.6 %; Nucleated Red Blood Cells % 0 %; Platelet Count 271 10^3/cmm (130-400); Red Blood Count 4.27 10^6/uL (4.1-5.3); Red Cell Distribution Width 15.7 % (12.1-15.1)
[2021-01-04 15:19] LABS: Urine Appearance Hazy (CLEAR); Urine Color Yellow (Yellow); pH Urine 5 (5-7)
[2021-01-04 15:20] LABS: Add Urine Microscopic? YES; Bilirubin Urine Neg (Negative); Blood Urine Neg (Negative); Glucose Urine UA Norm (Normal); Ketones Urine Negative (Negative); Leukocyte Esterase Urine Trace (Negative); Nitrate Urine Negative (Negative); Protein Urine Neg (Negative); Specific Gravity, Urine 1.025 (1.005-1.030); Urobilinogen Urine 1 mg/dL (Negative)
[2021-01-04 15:22] LABS: Alanine Aminotransferase 44 U/L (0-33); Albumin Level 3.7 g/dL (3.5-5.2); Alkaline Phosphatase 79 IU/L (35-105); Anion Gap 10.4 (5-19); Aspartate Amino Transferase 74 U/L (0-32); Blood Urea Nitrogen 11 mg/dL (6-20); Calcium 8.8 mg/dL (8.5-10.5); Carbon Dioxide 27 mmol/L (22-29); Chloride 102 mmol/L (98-107); Creatinine Clr Calc Pharmacy 177.8608; Globulin 3.1 g/dL (1.3-4.6); Glomerular Filtration Rate 115.9 mL/min (90-130); Glucose 103 mg/dL (65-115); Osmolality Calculated 282 mOsm/kg (285-295); Potassium 3.4 mmol/L (3.5-5.1); Sodium 136 mmol/L (136-145); Total Bilirubin 0.2 mg/dL (0.15-1.2); Total Protein 6.8 g/dL (6.6-8.7)
[2021-01-04 15:22] LABS: Bacteria Urine 2+ /hpf; Mucus Urine 1+ /hpf; Squamous Epithelial Cell Urine 15-25 /hpf (0-5); WBC Urine 25-40 /hpf (0-5)
[2021-01-04 15:23] LABS: Add Urine Culture? No
[2021-01-04 15:26] LABS: SARS Covid-2 Antigen Negative (Negative)
[2021-01-04 16:34] VITALS: BP 124/63; PULSE 85; RESP 18; O2SAT 96
== END 2021-01-04 16:36 | disposition home or self-care (01) ==
PROVIDERS: Emergency Provider Family Medicine; PCP Nurse Practitioner
DX: R11.11 Vomiting without nausea (principal); R55 Syncope and collapse; F17.210 Nicotine dependence, cigarettes, uncomplicated
CPT/HCPCS: 80053; 81001; 81025; 85025; 87426; 99283

== ENCOUNTER → 2021-01-09 14:19 | Outpatient (BNVA) | payer MEDICAID, SELFPAY | PROVIDERS: PCP Nurse Practitioner; Visit Provider Nurse Practitioner | DX: R55 Syncope and collapse (principal); R00.2 Palpitations | CPT/HCPCS: 80053; 84443 ==

== ENCOUNTER 2021-02-05 12:25 | Outpatient (CLI) | payer MEDICAID, SELFPAY ==
--- NOTE | 2021-02-05 12:45 | USCV_ITS ---
Jessie Fitzpatrick Age: 31 Gender: F : 1990 Exam Date: 02/05/2021 12:34 Ordering Phys: Lg Stern M.D ([email or web address]) Technologist: Ad Piper [place] [facility] [place]: SOB BP: 120 / 70 HR: 67 Rhythm: Sinus Technical Quality: Good MEASUREMENTS (Male / Female) Normal Values 2D ECHO LV Diastolic Diameter PLAX 4.4 cm 4.2 - 5.9 / 3.9 - 5.3 cm LV Systolic Diameter PLAX 2.7 cm IVS Diastolic Thickness 1.1 cm 0.6 - 1.0 / 0.6 - 0.9 cm IVS Systolic Thickness 1.1 cm LVPW Diastolic Thickness 1.1 cm 0.6 - 1.0 / 0.6 - 0.9 cm LVPW Systolic Thickness 1.1 cm LVOT Diameter 2.1 cm LV Ejection Fraction 2D Teich 69.1 % LV Ejection Fraction MOD 2C 65.7 % LV Ejection Fraction 2C AL 65.7 % LA Diameter 3.3 cm Aorta at Sinotubular Diameter 2.6 cm M-MODE LV Diastolic Diameter MM 6.1 cm 4.2 - 5.9 / 3.9 - 5.3 cm LV Systolic Diameter MM 3.9 cm LV Ejection Fraction MM Teich 64.3 % IVS Diastolic Thickness MM 1.0 cm 0.6 - 1.0 / 0.6 - 0.9 cm IVS Systolic Thickness MM 1.3 cm LVPW Diastolic Thickness MM 1.2 cm 0.6 - 1.0 / 0.6 - 0.9 cm LVPW Systolic Thickness MM 1.8 cm RV Diastolic Diameter MM 1.5 cm Aortic Annulus Diameter 3.6 cm LA Ao Ratio MM 0.9 MV E Point Septal Separation 1.2 cm DOPPLER AV Peak Velocity 151.3 cm/s LVOT Peak Velocity 126.0 cm/s AV Area Cont Eq vti 3.3 cm squared AV Area Cont Eq pk 2.9 cm squared MV Area PHT 5.0 cm squared Mitral E to A Ratio 1.4 MV E' Velocity 62.0 cm/s Mitral E to MV E' Ratio 8.9 Mitral E to LV E' Lateral Ratio 8.2 Mitral E to LV E' Septal Ratio 9.8 TR Peak Velocity 114.0 cm/s TR Peak Gradient 5.2 mmHg Right Atrial Pressure 3.0 mmHg Pulmonary Artery Systolic Pressu 8.2 mmHg FINDINGS Left Ventricle Normal left ventricular size. LV systolic function is normal with EF of 55-60%.No regional wall motion abnormalities. Normal diastolic filling pattern. Right Ventricle The right ventricle is normal in size and function. Right Atrium The right atrium is normal in size. Left Atrium The left atrium is normal in size. Mitral Valve Structurally normal mitral valve without significant stenosis or prolapse. There is mild mitral regurgitation. Aortic Valve Structurally normal aortic valve without significant sclerosis or stenosis. There is no aortic regurgitation. Tricuspid Valve Structurally normal tricuspid valve without significant stenosis or regurgitation. Insufficient TR jet to calculate RVSP Pulmonic Valve Structurally normal pulmonic valve without significant stenosis. There is no pulmonic regurgitation. Pericardium Normal pericardium without effusion. Aorta Normal ascending aorta dimension. CONCLUSIONS LV systolic function is normal with EF of 55-60% Diastolic function is normal Mild mitral regurgitation is noted No comparison studies are available Lg Stern MD (Electronically Signed) Final Date: 16 Feb 2021 18:25 S
== END 2021-02-05 12:26 | disposition home or self-care (01) ==
LOC: US 12:26
PROVIDERS: PCP Nurse Practitioner; Visit Provider Internal Medicine
DX: R06.02 Shortness of breath (principal); I34.0 Nonrheumatic mitral (valve) insufficiency
CPT/HCPCS: 93306

== ENCOUNTER 2021-02-19 13:04 | Outpatient (CLI) | payer MEDICAID, SELFPAY ==
--- NOTE | 2021-02-19 13:10 | US_ITS ---
WS: [id number] BILATERAL DIGITAL DIAGNOSTIC MAMMOGRAM MAMMOGRAPHY WITH CAD CLINICAL INFORMATION: N64.4 - Mastodynia. Bilateral breast pain. History of green/yellow nipple disch arge. TECHNIQUE: Bilateral CC, MLO, and ML views. FINDINGS: The breasts are composed of heterogeneous fibroglandular density, which can limit the detection of sm all underlying mass lesions. Incidental intramammary lymph node upper outer right breast. No definite mammographic abnormalities i n the area of palpable concern left breast in the subareolar region. Ultrasound is pending. ULTRASOUND BREAST LEFT TECHNIQUE: Ultrasound left breast focused area of concern. CLINICAL INFORMATION: N64.4 - Mastodynia FINDINGS: Ultrasound left breast at the 200-4:00 position. Incidental fibrocystic changes a subcentimeter cyst at the 3:00 position. Small incidental cyst measures 4 x 5 mm. At the 4:00 position, in the area of pain, is a small ovoid hypoechoic lesion measuring approximately 1.1 x 0.4 x 0.6 cm. This is nonspecific but may represent a small lymph node. This is probably benig n and recommend 6 month follow-up to confirm stability. No other suspicious abnormalities.. US/US breast LT limited* [id number] IMPRESSION: BI-RADS: 3-Probably Benign FOLLOW UP: 6 Month Follow-up RECOMMEND 6 MONTH FOLLOW-UP LEFT BREAST ULTRASOUND AT THE 4:00 POSITION WITH AT TENTION TO THE SMALL OVOID NODULE
--- NOTE | 2021-02-19 13:30 | MM_ITS ---
WS: [id number] BILATERAL DIGITAL DIAGNOSTIC MAMMOGRAM MAMMOGRAPHY WITH CAD CLINICAL INFORMATION: N64.4 - Mastodynia. Bilateral breast pain. History of green/yellow nipple disch arge. TECHNIQUE: Bilateral CC, MLO, and ML views. FINDINGS: The breasts are composed of heterogeneous fibroglandular density, which can limit the detection of sm all underlying mass lesions. Incidental intramammary lymph node upper outer right breast. No definite mammographic abnormalities i n the area of palpable concern left breast in the subareolar region. Ultrasound is pending. ULTRASOUND BREAST LEFT TECHNIQUE: Ultrasound left breast focused area of concern. CLINICAL INFORMATION: N64.4 - Mastodynia FINDINGS: Ultrasound left breast at the 200-4:00 position. Incidental fibrocystic changes a subcentimeter cyst at the 3:00 position. Small incidental cyst measures 4 x 5 mm. At the 4:00 position, in the area of pain, is a small ovoid hypoechoic lesion measuring approximately 1.1 x 0.4 x 0.6 cm. This is nonspecific but may represent a small lymph node. This is probably benig n and recommend 6 month follow-up to confirm stability. No other suspicious abnormalities.. MM/[place] [id number] IMPRESSION: BI-RADS: 3-Probably Benign FOLLOW UP: 6 Month Follow-up RECOMMEND 6 MONTH FOLLOW-UP LEFT BREAST ULTRASOUND AT THE 4:00 POSITION WITH AT TENTION TO THE SMALL OVOID NODULE
== END 2021-02-19 13:05 | disposition home or self-care (01) ==
LOC: RADSHAW 13:08
PROVIDERS: PCP Nurse Practitioner; Visit Provider Nurse Practitioner
DX: N64.4 Mastodynia (principal)
CPT/HCPCS: 76642; 77066

== ENCOUNTER 2021-08-19 12:04 | Emergency (ER) | payer MEDICAID, SELFPAY ==
[2021-08-19 12:14] VITALS: BP 149/92; PULSE 95; RESP 18; TEMP 36.8; O2SAT 98; BMI 36.9
--- NOTE | 2021-08-19 12:27 | W.ED.ABDPA2 ---
HPI - Abdominal Pain General: Chief Complaint: Abdominal Pain Stated Complaint: abd pain Time Seen by Provider: 08/19/21 12:27 History of Present Illness: HPI narrative: Ms. Fitzpatrick is a 31-year-old lady with history of obesity and chronic pain who presents emergency department due to right upper quadrant abdominal pain. She reports a longstanding history of typically spontaneously resolved short episodes of pain in the right upper quadrant. This is typically sharp with mild radiation to the chest. She endorses this is worse after eating any food however some days/time she has improvement with no pain. Since approximately 1 day ago she has had near constant pain. Intensity is moderate to severe worse with palpation and movement. Course has been persistent. This was worse after eating and she notes associated nausea, vomiting, and chills. She denies associated other abdominal pain. No vaginal bleeding or discharge. No urinary symptoms. No changes in bowel movements. Abdominal surgical history includes . No other specific exacerbating or alleviating factors identified. Related Data: Date of Last Menstrual Period: 08/19/21 Review of Systems General: Reports: 10 or more systems reviewed and unremarkable except in HPI and below PFSH ED PFSH: Medical History Chronic pain Back Obesity, Class III, BMI 40-49.9 (morbid obesity) Surgical History History of back surgery History of section History of tubal ligation Family History Grandmother Cancer Breast and throat Diabetes Mother Cancer Skin Diabetes Social History Smoking and tobacco status: current every day smoker Second hand smoke exposure: No Smoking risk assessment/counseling performed?: Yes Alcohol intake: unknown Desire information about alcohol rehabilitation?: No Counseling given: No Desire information about substance/drug rehabilitation?: No Counseling given: No Adopted: No Caregiver/support person: No Lives independently: Yes Household members: children Housing: Apartment Marital status: Number of children: 2 service: No Current occupational status: unemployed Current occupation: [employer] History of recent travel: No Current gender identity: Female Female Reproductive History: Date of last menstrual period: 08/19/21 Physical Exam Narrative: EXAM NARRATIVE: GENERAL/CONSTITUTIONAL - well-appearing. No acute distress. Obese Eyes -no scleral icterus, no conjunctival injection ENMT - Atraumatic external nose and ears. Moist mucous membranes NECK - supple. trachea midline CARDIOVASCULAR - regular rate and rhythm. RESPIRATORY -clear to auscultation bilaterally. No retractions or accessory muscle use. ABDOMEN/GI -nondistended. Tenderness to palpation of right upper quadrant, negative Francisco. No tenderness to percussion or evidence of peritonitis MSK - Extremities without obvious deformity or tenderness to palpation SKIN - Warm, Dry NEURO - alert and appropriately oriented. Moves all extremities equally. PSYCH - Appropriate mood and affect Course ED course: - Patient was seen and evaluated by me at bedside - Patient placed on cardiac monitors, IV access obtained - Initial evaluation notable for exam as noted above. Nontoxic. -Symptom treatment ordered - Labs notable for no significant abnormality to explain patient's symptoms, blood in urine is likely contamination as patient is currently on her menstrual period - Imaging notable for ultrasound without evidence of cholecystitis however patient does have cholelithiasis. Given overall patient's description of symptoms and repeat abdominal exam CT imaging ordered. CT negative for acute other finding - Upon serial reexamination after treatment the patient was improved with analgesia - Based on patient history, evaluation, labs, and imaging as interpreted the most likely cause of the patient's condition is symptomatic cholelithiasis versus undifferentiated abdominal pain - The results of ED evaluation were discussed with the patient including prescriptions and/or symptomatic cares (if applicable) including appropriate and responsible use, followup plan, and return precautions. The patient verbalized understanding and felt safe for discharge. - Patient discharged in satisfactory condition. Vital Signs: Vital signs: Vital Signs Temperature 97.8 F 08/19/21 15:49 Pulse Rate 78 08/19/21 15:49 Respiratory Rate 17 08/19/21 15:49 Blood Pressure 115/78 08/19/21 15:49 Pulse Oximetry 100 08/19/21 15:49 MDM - Abdominal Pain Medical Records: Attestation: I reviewed the patient's medical records. Lab Data: Attestation: I reviewed the patient's lab results. Labs: Lab Results 08/19/21 08/19/21 08/19/21 13:22 13:22 13:22 WBC 7.4 10^3/uL 10^3/ uL (4.0-10.0) RBC 4.64 10^6/uL 10^6 /uL (4.1-5.3) Hgb 11.7 g/dL g/dL (11.5-15.3) Hct 38.0 % % (37.0-47.0) MCV 81.9 fl fl (81-99) MCH 25.2 pg L pg (28.0-34.0) MCHC 30.8 g/dL g/dL (30.0-36.0) RDW 14.7 % % (12.1-15.1) Plt Count 295 10^3/cmm 10^3 /cmm (130-400) MPV 8.9 fL fL (7.4-10.4) Neut % (Auto) 66.4 % % Lymph % (Auto) 26.1 % % Anson % (Auto) 5.4 % % Eos % (Auto) 1.6 % % Baso % (Auto) 0.4 % % Neut # (Auto) 4.90 10^3/uL 10^3 /uL (1.8-7.7) Lymph # (Auto) 1.9 10^3/uL 10^3/ uL (0.8-4.8) Anson # (Auto) 0.4 10^3/uL 10^3/ uL (0.2-0.9) Eos # (Auto) 0.1 10^3/uL 10^3/ uL (0.0-0.8) Baso # (Auto) 0.0 10^3/uL 10^3/ uL (0.0-0.1) Nucleated RBC % (a uto) 0 % % Nucleated RBCs # 0.0 /100WBC /100W BC Sodium 139 mmol/L mmol/L (136-145) Potassium 3.7 mmol/L mmol/L (3.5-5.1) Chloride 104 mmol/L mmol/L (98-107) Carbon Dioxide 28 mmol/L mmol/L (22-29) Anion Gap 10.7 (5-19) BUN 9 mg/dL mg/dL (6-20) Creatinine 0.6 mg/dL mg/dL (0.5-0.9) GFR Calculation 115.1 mL/min mL/m in (90-130) Glucose 101 mg/dL mg/dL (65-115) Calculated Osmolal ity 287 mOsm/kg mOsm/ kg (285-295) Calcium 8.9 mg/dL mg/dL (8.5-10.5) Total Bilirubin 0.2 mg/dL mg/dL (0.15-1.2) AST 30 U/L U/L (0-32) ALT 31 U/L U/L (0-33) Alkaline Phosphata se 88 IU/L IU/L (35-105) Total Protein 7.4 g/dL g/dL (6.6-8.7) Albumin 3.9 g/dL g/dL (3.5-5.2) Globulin 3.5 g/dL g/dL (1.3-4.6) Lipase 26 U/L U/L (13-60) HCG, Qual Negative (Negative) Urine Color Urine Appearance Urine pH Ur Specific Gravit y Urine Protein Urine Glucose (UA) Urine Ketones Urine Blood Urine Nitrate Urine Bilirubin Urine Urobilinogen Ur Leukocyte Krys ase Urine RBC Urine WBC Ur Squamous Epith Cells Amorphous Sediment Urine Bacteria Urine Mucus 08/19/21 13:22 WBC RBC Hgb Hct MCV MCH MCHC RDW Plt Count MPV Neut % (Auto) Lymph % (Auto) Anson % (Auto) Eos % (Auto) Baso % (Auto) Neut # (Auto) Lymph # (Auto) Anson # (Auto) Eos # (Auto) Baso # (Auto) Nucleated RBC % (a uto) Nucleated RBCs # Sodium Potassium Chloride Carbon Dioxide Anion Gap BUN Creatinine GFR Calculation Glucose Calculated Osmolal ity Calcium Total Bilirubin AST ALT Alkaline Phosphata se Total Protein Albumin Globulin Lipase HCG, Qual Urine Color Red (Yellow) Urine Appearance Bloody A (CLEAR) Urine pH 5 (5-7) Ur Specific Gravit y 1.020 (1.005-1.030) Urine Protein Trace (Negative) Urine Glucose (UA) Norm (Normal) Urine Ketones Negative (Negative) Urine Blood 3+ H (Negative) Urine Nitrate Negative (Negative) Urine Bilirubin Neg (Negative) Urine Urobilinogen 1 mg/dL H mg/dL (Negative) Ur Leukocyte Krys ase 1+ H (Negative) Urine RBC >100 /hpf H /hpf (0-2) Urine WBC 10-15 /hpf H /hpf (0-5) Ur Squamous Epith Cells 0-4 /hpf H /hpf (0-5) Amorphous Sediment Not Reportable Urine Bacteria 1+ /hpf H /hpf (NONE) Urine Mucus Trace /hpf /hpf Discharge Plan Discharge Patient Disposition: Home Clinical Impression: Abdominal pain, Symptomatic cholelithiasis Condition: Stable Prescriptions: New ondansetron 4 mg tablet,disintegrating 4 mg PO TID PRN (Reason: nausea and vomiting) Qty: 20 RF: 0 oxycodone 5 mg tablet 5 mg PO Q4H PRN (Reason: pain) Qty: 10 RF: 0 No Action albuterol sulfate [ProAir HFA] 90 mcg/actuation HFA aerosol inhaler 2 puff inhalation Q6H PRN (Reason: shortness of breath or wheezing) Qty: 18 RF: 2 fluticasone propionate [Flonase Allergy Relief] 50 mcg/actuation spray,suspension 2 spray intranasal DAILY PRN (Reason: Allergy Symptoms) RF: 0 Flovent HFA 110 mcg/actuation HFA aerosol inhaler 2 puff inhalation BID RF: 0 Pepto-Bismol 262 mg Tablet 524 mg PO QID PRN (Reason: Nausea) RF: 0 Motion Sickness 25 mg Tablet 50 mg PO Q8H PRN (Reason: Nausea) RF: 0 Contrave 8-90 mg tablet extended release 2 tab PO Q12H RF: 0 [place] 5-325 mg Tablet 1 tab PO DAILY PRN (Reason: Pain) RF: 0 [place] 10-325 mg Tablet 1 tab PO QID PRN (Reason: Pain) RF: 0 Discharge Orders: Discharge ED (Routine); Ordered 08/19/21 Ordered By: Dariel Ray Referrals: Adalgisa Mitchell, DIGITAL STRATEGY MANAGER-C [Primary Care Provider] - Discharge Diet: Advance as tolerated, Low Fat and Clear Liquid Discharge Activity: Increase activity as tolerated Patient Instructions: Gallstones (ED), Abdominal Pain (ED), Opioid Safety Activity Restrictions/Additional Instructions: Thank you for visiting the emergency department. You were seen and evaluated for abdominal pain. The exact cause of your symptoms is unclear though is likely related to gallstones without evidence of infection of the gallbladder at this time. Additionally you have fatty changes in your liver which can cause irritation as well. Please follow-up with your primary care provider and general surgery. Please return to the emergency department for worsening symptoms or anything else that you are concerned about, or was discussed, and feel needs emergency department evaluation. Coding Level of Care Code ED [employer] Technician for Edy Chaudhary
--- NOTE | 2021-08-19 12:42 | US_ITS ---
WS: [id number] ULTRASOUND ABDOMEN LIMITED CLINICAL INFORMATION: RUQ, biliary COMPARISON: None. FINDINGS: Liver Size: Enlarged Craniocaudal length: 20.8 cm. Echogenicity: Coarse Surface nodularity: None. Mass (size and location): None. Bile ducts Intrahepatic ducts: Normal. Common bile duct diameter: 0.4 cm. Gallbladder Shadowing cholelithiasis. Gallstones: Present Gallbladder sludge: None. Gallbladder wall thickening: None. Pericholecystic fluid: None. Sonographic Francisco sign: Absent. Pancreas Not well seen due to bowel gas Right kidney: Normal. Hydronephrosis: None. Size: 11.7 cm x 5.1 cm x 5.4 cm. Abdominal aorta and IVC Visualized portions are normal. Ascites: None. US/US abdomen limited [id number] IMPRESSION: 1. Hepatomegaly with diffuse fatty infiltration. Recommend correlation with li celina function tests. 2. Cholelithiasis. No gallbladder wall thickening or pericholecystic fluid. Ab sent Francisco's sign. 3. No hydronephrosis in right kidney. 4. Normal common bile duct.
--- NOTE | 2021-08-19 12:48 | XRR_ITS ---
PROCEDURE INFORMATION: Exam: XR Chest Exam date and time: 08/19/2021 12:48 PM Age: 31 years old Clinical indication: Chest wall pain and right-sided; Additional info: Right lower rib pain TECHNIQUE: Imaging protocol: XR of the chest. Views: 1 view. COMPARISON: CR XR chest 1V portable [id number] 09/23/2020 6:32 PM FINDINGS: Lungs: Unremarkable. No consolidation. Pleural spaces: Unremarkable. No pleural effusion. No pneumothorax. Heart/Mediastinum: Unremarkable. No cardiomegaly. Bones/joints: Patient has undergone lumbar fusion surgery with pedicle screws and rods. XR/XR chest 1V portable [id number] IMPRESSION: No significant cardiopulmonary abnormality. Radiation Dose CTDIVOL = (mGy): DLP = (mGy-cm)
[2021-08-19 12:53] VITALS: BP 125/97; PULSE 89; RESP 18; TEMP 36.8; O2SAT 99
[2021-08-19] MEDS: ondansetron 2 mg/ML SDV 2 mL 4 MG IVP (13:26)
[2021-08-19] MEDS: lidocaine 2% viscous 15 ML, aluminum-mag hydrox-simethicon 30 ML, sucralfate oral liq 1 GM PO (13:28)
[2021-08-19 13:49] LABS: Basophils % 0.4 %; Eosinophils # 0.1 10^3/uL (0.0-0.8); Eosinophils % 1.6 %; Hemoglobin 11.7 g/dL (11.5-15.3); Lymphocytes # 1.9 10^3/uL (0.8-4.8); Lymphocytes % 26.1 %; Mean Corpuscular HGB Conc 30.8 g/dL (30.0-36.0); Mean Corpuscular Hemoglobin 25.2 pg (28.0-34.0); Mean Corpuscular Volume 81.9 fl (81-99); Mean Platelet Volume 8.9 fL (7.4-10.4); Monocytes # 0.4 10^3/uL (0.2-0.9); Monocytes % 5.4 %; Neutrophils % 66.4 %; Nucleated Red Blood Cells % 0 %; Platelet Count 295 10^3/cmm (130-400); Red Blood Count 4.64 10^6/uL (4.1-5.3); Red Cell Distribution Width 14.7 % (12.1-15.1); White Blood Count 7.4 10^3/uL (4.0-10.0)
[2021-08-19 13:52] LABS: HCG Qualitative Urine. Negative (Negative)
--- NOTE | 2021-08-19 13:52 | PC.PHAR ---
PT STATES SHE HAS CONTRAVE BUT DOESNT TAKE IT -PT STATES SHE HAS AN OLD RX FROM [place] FOR [place]CO 10-325MG AND HAS 5-325MG LAST FILLED IN MARCH 2021 30D/S-NOTES ARE MADE IN THE PHARMACY COMMENTS
[2021-08-19 14:03] LABS: Add Urine Microscopic? YES; Bilirubin Urine Neg (Negative); Blood Urine 3+ (Negative); Glucose Urine UA Norm (Normal); Ketones Urine Negative (Negative); Leukocyte Esterase Urine 1+ (Negative); Nitrate Urine Negative (Negative); Protein Urine Trace (Negative); Urine Appearance Bloody (CLEAR); Urine Color Red (Yellow); Urobilinogen Urine 1 mg/dL (Negative); pH Urine 5 (5-7)
[2021-08-19 14:06] LABS: RBC Urine >100 /hpf (0-2); Squamous Epithelial Cell Urine 0-4 /hpf (0-5)
[2021-08-19 14:07] LABS: Add Urine Culture? Yes; Bacteria Urine 1+ /hpf; Mucus Urine TRACE /hpf
[2021-08-19 14:11] LABS: Alanine Aminotransferase 31 U/L (0-33); Albumin Level 3.9 g/dL (3.5-5.2); Alkaline Phosphatase 88 IU/L (35-105); Anion Gap 10.7 (5-19); Blood Urea Nitrogen 9 mg/dL (6-20); Calcium 8.9 mg/dL (8.5-10.5); Carbon Dioxide 28 mmol/L (22-29); Chloride 104 mmol/L (98-107); Creatinine Clr Calc Pharmacy 179.1193; Globulin 3.5 g/dL (1.3-4.6); Glomerular Filtration Rate 115.1 mL/min (90-130); Glucose 101 mg/dL (65-115); Lipase 26 U/L (13-60); Osmolality Calculated 287 mOsm/kg (285-295); Potassium 3.7 mmol/L (3.5-5.1); Sodium 139 mmol/L (136-145); Total Bilirubin 0.2 mg/dL (0.15-1.2); Total Protein 7.4 g/dL (6.6-8.7)
--- NOTE | 2021-08-19 14:15 | CT_ITS ---
WS: [id number] CT ABDOMEN PELVIS TECHNIQUE: Contrast-enhanced CT of the abdomen and pelvis with coronal and sagittal reformatted image s. CLINICAL INFORMATION: RUQ abdominal pain, n/v COMPARISON: CT November 18, 2017 DLP: [address] scans at [facility] use at least one of these dose optimization techniques: automated e xposure control; mA and/or kV adjustment per patient size (includes targeted exams where dose is matc hed to clinical indication); or iterative reconstruction. FINDINGS: Diffuse fatty infiltration of the liver. Hepatomegaly. Cholelithiasis. No gallbladder wall thickening or pericholecystic fluid. Gallstones extend into the gallbladder neck. No intrahepatic biliary ducta l dilatation. Common bile duct appears normal. Normal spleen. Normal GE junction. Lung bases are well aerated. Adrenal glands are normal. Normal pancreatic parenchymal enhancement. Normal caliber abdomi nal aorta. Normal sigmoid colon. No evidence of high-grade small or large bowel obstruction. Normal appendix rig ht lower quadrant. Tiny Fat-containing umbilical hernia. Adrenal glands are normal. No hydronephrosis in either kidney. No abdominal or pelvic lymphadenopathy . No free fluid in the pelvis. Mild disc bulging L4-L5 and L5-S1. Prior postoperative changes pedicle screw fixation with partial corpectomy and interbody fusion grafts at T11-T12. Pedicle screw fixatio n T10-L1. CT/CT abdomen pelvis w con* [id number] IMPRESSION: 1. Hepatomegaly with diffuse fatty infiltration of the liver. 2. Dense cholelithiasis. Gallstones extend into the gallbladder neck near the cystic duct. No significant gallbladder wall thickening or pericholecystic flui d. 3. No hydronephrosis in either kidney. 4. Tiny fat-containing umbilical hernia. 5. Normal sigmoid colon. 6. Additional nonacute findings as described above. Notified Dariel Ray MD at 08/19/2021 2:58 PM.
[2021-08-19] MEDS: iohexol 300 mg/mL 100 mL Btl IV (14:26)
[2021-08-19 14:33] LABS: Aspartate Amino Transferase 30 U/L (0-32)
[2021-08-19 14:58] VITALS: RESP 18; O2SAT 100
[2021-08-19] MEDS: morphine 4 mg/mL SDV 1 mL IVP (14:58)
[2021-08-19 15:00] VITALS: BP 132/93; PULSE 80; RESP 18; O2SAT 100
[2021-08-19 15:49] VITALS: BP 115/78; PULSE 78; RESP 17; TEMP 36.6; O2SAT 100
--- NOTE | 2021-08-20 09:54 | DCPLANNER ---
manager of global had message to schedule a follow up appointment for patient with Dr. Lerner. manager of global called the office of Dr. Lerner, spoke with Esther, gave clinic patients information. A follow up appointment was scheduled for Thursday, September 09, 2021 at 10:[address] Lerner. Clinic will call patient with appointment information. manager of global faxed patients information to the office of Dr. Lerner for review.
== END 2021-08-19 15:51 | disposition home or self-care (01) ==
PROVIDERS: Emergency Provider Emergency Medicine; PCP Nurse Practitioner
DX: R10.9 Unspecified abdominal pain (principal); K80.80 Other cholelithiasis without obstruction; Z79.891 Long term (current) use of opiate analgesic; F17.200 Nicotine dependence, unspecified, uncomplicated
CPT/HCPCS: 71045; 74177; 76705; 80053; 81001; 81025; 83690; 85025; 87086; 96374; 96375; 99284; J2270; J2405; Q9967

== ENCOUNTER → 2021-10-01 09:22 | Outpatient (BNVA) | payer MEDICAID, SELFPAY | PROVIDERS: PCP Nurse Practitioner; Visit Provider Nurse Practitioner | DX: Z12.4 Encounter for screening for malignant neoplasm of cervix (principal) | CPT/HCPCS: 87624 ==

== ENCOUNTER 2022-02-05 20:28 | Emergency (ER) | payer MEDICAID, SELFPAY ==
--- NOTE | 2022-02-05 20:40 | XRR_ITS ---
PROCEDURE INFORMATION: Exam: XR Lumbosacral Spine Exam date and time: 02/05/2022 8:48 PM Age: 32 years old Clinical indication: Low back pain; Prior surgery; Surgery date: 6+ months TECHNIQUE: Imaging protocol: XR of the lumbosacral spine. Views: 2 or 3 views. COMPARISON: 1. CT lumbar spine wo con* [id number] 12/26/2020 9:[address] abdomen pelvis w con* [id number] 08/19/2021 2:23 PM FINDINGS: Bones/joints: 5 [id number] vertebral bodies. Stable postsurgical changes in the visualized lower thoracic spine ending at L1. A cage device at the T10-11 levels is stable. Stable mild compression deformity of T12. No subluxation. Normal bone mineralization. Stable degenerative changes in the spine. No acute fracture. Soft tissues: No paravertebral soft tissue abnormality. No radiopaque foreign body. Intraperitoneal space: The patient has had an interval cholecystectomy. XR/XR lumbar spine 2-3V* [id number] IMPRESSION: 1. No acute fracture of the lumbar spine. CT scan would be recommended if there is continuing clinical concern for fracture. 2. Stable postsurgical changes in the visualized lower thoracic spine ending at L1. A cage device at the T10-11 levels is stable. 3. Stable mild compression deformity of T12. 4. The patient has had an interval cholecystectomy.
[2022-02-05 21:03] VITALS: BP 126/85; PULSE 101; RESP 18; TEMP 37.2; O2SAT 97; BMI 35.4
--- NOTE | 2022-02-05 23:15 | ED_ITS ---
HPI - Back Pain/Injury General: Chief Complaint: Back Pain/Injury Stated Complaint: hurt back, R leg numb Time Seen by Provider: 02/05/22 23:14 History of Present Illness: 32-year-old female comes in today with complaints of low back pain radiating down both legs. Patient has a history of chronic back pain. Patient denies any recent falls or injuries. Patient does have a history of fracture of the vertebra brought from a fall injury in 2011 with surgical repair. Patient appears well. Patient appears in mild to moderate pain. Associated symptoms: Deny fever(s) Review of Systems General: Reports: 10 or more systems reviewed and unremarkable except in HPI and below Const: Denies: fever(s) Card: Denies: chest pain Resp: Denies: dyspnea Musc: Denies: back pain (Worse with weightbearing) Neuro: Reports: numbness in extremities PFSH ED PFSH: Medical History Asthma Chronic pain Back Obesity, Class III, BMI 40-49.9 (morbid obesity) Surgical History History of back surgery History of section History of tubal ligation Family History Grandmother Cancer Breast and throat Diabetes Mother Cancer Skin Diabetes Social History Smoking and tobacco status: current every day smoker Second hand smoke exposure: No Smoking risk assessment/counseling performed?: Yes Alcohol intake: unknown Desire information about alcohol rehabilitation?: No Counseling given: No Desire information about substance/drug rehabilitation?: No Counseling given: No Adopted: No Caregiver/support person: No Lives independently: Yes Household members: children Housing: Apartment Marital status: Number of children: 2 service: No Current occupational status: unemployed Current occupation: [employer] History of recent travel: No Current gender identity: Female Female Reproductive History: Date of last menstrual period: 09/16/21 Physical Exam Const: COMMON NORMALS: alert HENMT: COMMON NORMALS: atraumatic HEAD & SCALP: atraumatic Neck/C-Spine: COMMON NORMALS: full ROM Resp: COMMON NORMALS: normal respiratory effort Cardio: COMMON NORMALS: regular rate RATE: regular rate Back/Pelvis: THORACIC SPINE/UPPER BACK: Yes paraspinal muscle tenderness LUMBAR SPINE/LOWER BACK: No lumbar spinal tenderness and Yes paraspinal muscle tenderness Extremity: COMMON NORMALS: normal to inspection and no pedal edema Neuro: SENSORIUM/ORIENTATION: Yes alert Psych: COMMON NORMALS: cooperative Skin: COMMON NORMALS: no rashes or lesions noted GENERAL SKIN EXAM: no rashes or lesions noted Course Vital Signs: Vital signs: Vital Signs Temperature 99 F 02/05/22 21:03 Pulse Rate 101 H 02/05/22 21:03 Respiratory Rate 16 02/05/22 23:19 Blood Pressure 129/86 02/05/22 23:19 Pulse Oximetry 95 02/05/22 23:19 MDM - Back Pain/Injury Medical Decision Making 32-year-old female comes in today with complaints of back pain for the last 2 weeks. Patient does have a history of chronic back pain and generative disc disease. Patient is morbidly obese. Lungs are clear to auscultation. Patient has muscle tenderness of the thoracic and lumbar spine. No palpable tenderness is noted along the lumbar spine. Vital signs are normal. Differential diagnosis includes intervertebral disc disease, facet arthropathy, and lumbar radiculopathy. Patient was given a dose of hydrocodone, Toradol, and orphenadrine for her pain. Patient be continued on steroids and medication for pain and discomfort. Patient should follow-up with primary care. Case manageme nt was quested for patient to follow-up with primary care appointment. Labs Radiology Impressions Lumbar Spine X-Ray 02/05/22 20:40 IMPRESSION: 1. No acute fracture of the lumbar spine. CT scan would be recommended if there is continuing clinical concern for fracture. 2. Stable postsurgical changes in the visualized lower thoracic spine ending at L1. A cage device at the T10-11 levels is stable. 3. Stable mild compression deformity of T12. 4. The patient has had an interval cholecystectomy. Discharge Plan Discharge Patient Disposition: Home Clinical Impression: Radiculopathy, lumbosacral region Condition: Stable Prescriptions: New gabapentin 300 mg capsule 300 mg PO BID Qty: 20 0RF hydrocodone-acetaminophen 5-325 mg tablet 1 tab PO Q8H PRN (Reason: pain (scale score 7-10)) Qty: 10 0RF diclofenac sodium 75 mg tablet,delayed release (DR/EC) 75 mg PO BID Qty: 20 0RF prednisone 20 mg tablet 20 mg PO BID 7 Days Qty: 14 0RF No Action venlafaxine [Effexor XR] 75 mg capsule,extended release 24hr 75 mg PO QAM Qty: 30 2RF Flovent HFA 110 mcg/actuation HFA aerosol inhaler 2 puff inhalation BID Qty: 12 2RF albuterol sulfate [ProAir HFA] 90 mcg/actuation HFA aerosol inhaler 2 puff inhalation Q6H PRN (Reason: shortness of breath or wheezing) Qty: 18 2RF metronidazole [Flagyl] 500 mg tablet 500 mg PO TID Qty: 21 0RF fluticasone propionate [Flonase Allergy Relief] 50 mcg/actuation spray,suspension 2 spray intranasal DAILY PRN (Reason: Allergy Symptoms) Qty: 16 2RF Discharge Orders: Discharge ED (Routine); Ordered 02/05/22 Ordered By: Ramana Fair Discharge Diet: Usual diet Discharge Activity: Increase activity as tolerated Patient Instructions: Back Pain (ED), Opioid Safety Activity Restrictions/Additional Instructions: Increase activity. Use a walker or cane to assist with ambulation. Drink plenty of water with medications. Follow-up with primary care for further evaluation and treatment. Return to the ER for new concerns. Coding Level of Care Code ED Director Of Operations Home Health for Edy Chaudhary
[2022-02-05 23:19] VITALS: BP 129/86; RESP 16; O2SAT 95
[2022-02-05] MEDS: predniSONE 20 mg Tablet 60 MG PO (23:29)
[2022-02-05] MEDS: HYDROcodone-acetaminophen 10-325 mg Tablet 1 TAB PO (23:29)
[2022-02-05] MEDS: orphenadrine 30 mg/mL Inj 2 mL 60 MG IM (23:30)
[2022-02-05] MEDS: ketorolac 30 mg/mL INJ IM (23:30)
[2022-02-05 23:39] VITALS: BP 129/86; PULSE 101; RESP 16; O2SAT 95
--- NOTE | 2022-02-12 14:56 | DCPLANNER ---
operations manager station had message to speak with patient about getting established with a primary care physician. operations manager station spoke with patient, she stated that she would like to be seen at [facility] in [facility], but that clinic is not accepting new patients. operations manager station offered to get patient established at the [facility] clinic, patient refused stating that she wanted to be seen at the [facility].
== END 2022-02-05 23:41 | disposition home or self-care (01) ==
PROVIDERS: Emergency Provider Nurse Practitioner Family
DX: M54.17 Radiculopathy, lumbosacral region (principal); E66.01 Morbid (severe) obesity due to excess calories; Z68.35 Body mass index [BMI] 35.0-35.9, adult; F17.200 Nicotine dependence, unspecified, uncomplicated
CPT/HCPCS: 72100; 96372; 99283; J1885; J2360; J7512

== ENCOUNTER → 2022-08-26 11:21 | Outpatient (BNVA) | payer MEDICAID, SELFPAY | PROVIDERS: PCP Nurse Practitioner; Visit Provider Nurse Practitioner | DX: E66.01 Morbid (severe) obesity due to excess calories (principal); N92.0 Excessive and frequent menstruation with regular cycle; Z12.39 Encounter for other screening for malignant neoplasm of breast; N92.1 Excessive and frequent menstruation with irregular cycle | CPT/HCPCS: 80053; 85025 ==

== ENCOUNTER 2022-10-09 15:19 | Outpatient (CLI) | payer MEDICAID, SELFPAY ==
--- NOTE | 2022-10-09 15:25 | MM_ITS ---
WS: [id number] BILATERAL 3D TOMOSYNTHESIS DIGITAL DIAGNOSTIC MAMMOGRAPHY WITH CAD CLINICAL INFORMATION: 6M FOLLOW UP HISTORY: Six-month follow-up. Bilateral breast pain and soreness. COMPARISON: February 19, 2021 TECHNIQUE: Bilateral CC, MLO, and ML views. FINDINGS: Scattered fibroglandular densities bilaterally. New ovoid nodular densities RIGHT breast measuring 15 mm millimeters in the central RIGHT breast anteriorly and 9 mm in the upper inner RIGHT breast poste riorly. Stable ovoid nodule outer LEFT breast measuring 9 mm is unchanged. Recommend RIGHT breast diagnostic mammography and ultrasound for further evaluation. Recommend LEFT b reast ultrasound for comparison to prior ultrasound February 19, 2021 MM/[place] [id number] IMPRESSION: BI-RADS: 0-Incomplete: Need additional imaging evaluation FOLLOW UP: Need Additional Imaging Recommendation RIGHT breast diagnostic mammography and ultrasound in further ev aluation of the new ovoid nodules. Recommend LEFT breast ultrasound for comparison to prior ultrasound February 19 1 to complete 6 month follow-up LEFT breast
== END 2022-10-09 15:20 | disposition home or self-care (01) ==
LOC: RAD 15:19
PROVIDERS: PCP Nurse Practitioner; Visit Provider Nurse Practitioner
DX: R92.8 Other abnormal and inconclusive findings on diagnostic imaging of breast (principal); N64.4 Mastodynia
CPT/HCPCS: 77062; G0279

== ENCOUNTER 2022-10-15 06:12 | Outpatient (CLI) | payer MEDICAID, SELFPAY ==
--- NOTE | 2022-10-15 06:30 | US_ITS ---
WS: [id number] TRANSABDOMINAL PELVIC AND TRANSVAGINAL PELVIC ULTRASOUND HISTORY: N92.0 - Excessive and frequent menstruation with irregular menses. COMPARISON: None available. Uterus: 10.0 cm x 4.7 cm x 4.8 cm. Very mildly enlarged anteverted uterus. No fibroid or mass. Endometrium: 1.2 cm. Trilaminar normal appearance of the endometrium. There are a few small complex n abothian cysts present. Right ovary: 2.4 cm x 2.0 cm x 1.1 cm. Normal size ovary. Normal vascularity. Ovary is visualized onl y by transabdominal imaging. Left ovary: 2.4 cm x 2.8 cm x 1.7 cm. Normal size ovary. Normal vascularity. Ovaries only visualized on transabdominal imaging. Free fluid: Trace free fluid. US/US pelvic with transvaginal IMPRESSION: 1. Very minimally enlarged uterus. 2. Normal endometrium.
== END 2022-10-15 06:13 | disposition home or self-care (01) ==
LOC: RAD 06:14
PROVIDERS: PCP Nurse Practitioner; Visit Provider Nurse Practitioner
DX: N92.0 Excessive and frequent menstruation with regular cycle (principal); N85.2 Hypertrophy of uterus
CPT/HCPCS: 76830; 76856

== ENCOUNTER 2022-10-16 07:15 | Outpatient (CLI) | payer MEDICAID, SELFPAY ==
--- NOTE | 2022-10-16 07:21 | MM_ITS ---
WS: [id number] RIGHT 3D TOMOSYNTHESIS DIGITAL MAMMOGRAPHY WITH CAD CLINICAL INFORMATION: ABNORMAL MAMMO HISTORY: Six-month follow-up. Bilateral breast lumps. COMPARISON: October 09, 2022 February 19, 2021 TECHNIQUE: 3 views of the right breast were obtained. FINDINGS: Scattered fibroglandular densities of the right breast. Previously described ovoid nodules measuring 9 15 mm in the central RIGHT breast and upper-outer quadrant persists on spot compression views. Ultr asound described below. ULTRASOUND BREAST BILATERAL TECHNIQUE: Ultrasound bilateral breast focused area of concern. CLINICAL INFORMATION: ABNORMAL MAMMO COMPARISON: None. FINDINGS: RIGHT BREAST: Ultrasound RIGHT breast 11 to 3:00 position. Solid ovoid nodule at the 12:00 position 6 cm from the nipple measuring 11 x 16 x 7 mm with a central fatty hilum consistent with an intramamma ry lymph node. In addition, intramammary lymph node with echogenic central hilum at the 2:00 position 7 cm from the nipple measuring 9 x 11 x 6 mm LEFT BREAST: Ultrasound LEFT breast at 3:00 position. Previously described hypoechoic ovoid nodule Stable compared to February 19, 2021. This measures 11 x 7 x 3.5 mm, 3 cm from the nipple. This likely rep resents a small lymph node and is unchanged since February 19, 2021. MM/[place] [id number] IMPRESSION: BI-RADS: 2-Benign FOLLOW UP: 1 Year Follow-up Recommend annual screening mammography age 40
== END 2022-10-16 07:16 | disposition home or self-care (01) ==
PROVIDERS: PCP Nurse Practitioner; Visit Provider Nurse Practitioner
DX: R92.8 Other abnormal and inconclusive findings on diagnostic imaging of breast (principal); N63.15 Unspecified lump in the right breast, overlapping quadrants; N63.25 Unspecified lump in the left breast, overlapping quadrants
CPT/HCPCS: 76642; 77061; G0279

== ENCOUNTER → 2022-10-23 15:00 | Outpatient (BNVA) | payer MEDICAID, SELFPAY | PROVIDERS: PCP Nurse Practitioner; Visit Provider Nurse Practitioner Women's Health | DX: R87.612 Low grade squamous intraepithelial lesion on cytologic smear of cervix (LGSIL) (principal); Z11.3 Encounter for screening for infections with a predominantly sexual mode of transmission; N93.9 Abnormal uterine and vaginal bleeding, unspecified; L90.0 Lichen sclerosus et atrophicus | CPT/HCPCS: 84443; 84702; 85025; 87491; 87591; 87624; 87661 ==

== ENCOUNTER → 2022-11-13 16:00 | Outpatient (BNVA) | payer MEDICAID, SELFPAY | PROVIDERS: PCP Nurse Practitioner; Visit Provider Nurse Practitioner Women's Health | DX: N93.9 Abnormal uterine and vaginal bleeding, unspecified (principal); N88.9 Noninflammatory disorder of cervix uteri, unspecified; Z11.3 Encounter for screening for infections with a predominantly sexual mode of transmission | CPT/HCPCS: 86592; 87530; 87806; 88305 ==

== ENCOUNTER → 2023-04-30 09:52 | Outpatient (BNVA) | payer MEDICAID, SELFPAY | PROVIDERS: PCP Nurse Practitioner; Visit Provider Nurse Practitioner | DX: D64.9 Anemia, unspecified (principal); F41.8 Other specified anxiety disorders; K59.01 Slow transit constipation; J45.909 Unspecified asthma, uncomplicated; E66.9 Obesity, unspecified | CPT/HCPCS: 80053; 83550; 84443; 85025 ==

== ENCOUNTER 2023-06-04 13:42 | Emergency (ER) | payer MEDICAID, SELFPAY ==
[2023-06-04 13:59] VITALS: BP 153/83; PULSE 87; RESP 16; TEMP 36.7; O2SAT 100; BMI 36.1
--- NOTE | 2023-06-04 14:07 | W.ED.CHESTPA ---
HPI - Chest Pain General: Chief Complaint: Chest Pain Stated Complaint: headach/ blury vison Time Seen by Provider: 06/04/23 13:45 Source: patient Mode of arrival: ambulatory History of Present Illness: 33-year-old female who presents to the emergency room with complaints of chest discomfort. She has had this for several months she has not really had any evaluation as an outpatient. She is also complaining of headaches and vision changes and finally she has red spot of on her left thigh proximally. No fever sweats or chills she has no known history of coronary artery disease patient states she is not diabetic. She has not noticed anything that exacerbates or relieves the symptoms. MD complaint: chest pain Onset (ago): minute(s) Timing of current episode: episodic Prior episodes: Yes Onset: during rest Pain location: substernal Quality: aching Relieving factors: nothing Exacerbating factors: nothing Associated symptoms: Deny abdominal pain, diaphoresis, dyspnea, fever(s), leg edema, nausea, palpitations, sense of impending doom, syncope or vomiting Review of Systems Const: Denies: fever(s), chills or diaphoresis ENMT: Denies: throat pain, ear or mastoid pain, nasal discharge or nasal congestion Card: Reports: chest pain; Denies: palpitations or syncope Resp: Denies: dyspnea GI: Denies: abdominal pain, nausea or vomiting : Denies: flank pain, difficulty voiding, dysuria, urinary frequency or urinary urgency Skin/Breast: Denies: rash or pruritus PFS ED PFSH: Medical History Anogenital lichen sclerosus Asthma Chronic pain Back Iron deficiency anemia LGSIL on Pap smear of cervix (~2021) No pertinent past medical history Neghx: htn,dm,thyroid, dvt/pe PCP: Kayley Mitchell Obesity, Class II, BMI 35-39.9 Psychiatric care Surgical History H/O section (~2014) History of back surgery (~2003) History of back surgery (~2003) had to have a blood clot removed from her back at [facility] in [place]. History of section (~2014) Emergent performed by Dr. Mackey. Tubal ligation performed at the same time. History of cholecystectomy (~2021) History of cholecystectomy (~2021) History of tubal ligation (~2014) No pertinent past surgical history Family History Grandmother Cancer Breast and throat Diabetes maternal Breast cancer, Onset Age: 40 maternal Stroke maternal paternal Hypertension maternal Mother Cancer Skin Diabetes Breast cancer, Onset Age: 30 Family/Other Breast cancer maternal aunts Mother Breast cancer Diabetes Grandmother Breast cancer maternal Diabetes maternal Hypertension maternal Stroke maternal paternal Family/Other Breast cancer paternal aunts Denies family history of Colon cancer Ovarian cancer Heart disease Family history of thyroid problem Uterine cancer Hyperchloremia Social History Smoking and tobacco status: current every day smoker Second hand smoke exposure: Yes Smoking risk assessment/counseling performed?: No Alcohol intake: former Desire information about alcohol rehabilitation?: No Counseling given: No Substance/Drug Use: former Desire information about substance/drug rehabilitation?: No Counseling given: No Adopted: No Caregiver/support person: No Lives independently: Yes Household members: significant other and children Housing: House Marital status: Single Number of children: 2 service: No Current occupational status: employed Current occupation: [employer] Pets and animals: No Do you think of yourself as: Straight/Heterosexual Current gender identity: Female Physical Exam Const: GENERAL APPEARANCE: cooperative and comfortable ORIENTATION/CONSCIOUSNESS: Yes awake, Yes oriented to person, Yes oriented to place and Yes oriented to time HENMT: COMMON NORMALS: normocephalic, atraumatic and hearing grossly normal bilaterally HEAD & SCALP: normocephalic and atraumatic Resp: COMMON NORMALS: normal respiratory effort, No retractions, No use of accessory muscles and clear to auscultation bilaterally AUSCULTATION: clear to auscultation bilaterally Cardio: COMMON NORMALS: regular rate, regular rhythm and No murmurs present (Cardio) RATE: regular rate RHYTHM: regular rhythm GI: COMMON NORMALS: Soft to palpation and No hepatosplenomegaly present AUSCULTATION: Yes normoactive bowel sounds PALPATION: Yes Soft to palpation, No Tenderness to palpation present (GI), No Guarding due to palpation present (GI) and Yes No hepatosplenomegaly present Extremity: COMMON NORMALS: normal to inspection, capillary refill normal, no clubbing, cyanosis or edema, no calf tenderness and no pedal edema Neuro: SENSORIUM/ORIENTATION: Yes oriented to person, Yes oriented to place and Yes oriented to time Skin: OTHER: Small mildly erythematous area on the proximal lateral left thigh no palpable abscess no active drainage no pointing Course Vital Signs: Vital signs: Vital Signs Temperature 98.0 F 06/04/23 13:59 Pulse Rate 87 06/04/23 13:59 Respiratory Rate 16 06/04/23 13:59 Blood Pressure 153/83 06/04/23 13:59 Pulse Oximetry 100 06/04/23 13:59 Oxygen Delivery Me thod Room Air 06/04/23 13:59 MDM - Chest Pain Medical Decision Making Labs and imaging reviewed no acute findings at this time no acute ST changes cardiac enzyme is negative patient has had chest discomfort for months EKG show no acute changes. Neurologic exam was normal no focal neurologic deficits are noted. Patient given promethazine and ketorolac for headache discharged home with diclofenac and promethazine to use as needed for headache follow-up with primary care to reevaluate if symptoms persist for further outpatient evaluation if deemed appropriate. No emergent condition present at this time Medical Records I reviewed the patient's medical records. Lab Data I reviewed the patient's lab results. 06/04/23 14:20 06/04/23 14:[address] 06/04/23 14:34 IMPRESSION: No CT evidence of acute intracranial pathology. Laboratory Results WBC 7.2 10^3/uL (4.0-10.0) 06/04/23 14:20 RBC 4.15 10^6/uL (4.1-5.3) 06/04/23 14:20 Hgb 10.5 g/dL (11.5-15.3) L 06/04/23 14:20 Hct 35.2 % (37.0-47.0) L 06/04/23 14:20 MCV 84.8 fl (81-99) 06/04/23 14:20 MCH 25.3 pg (28.0-34.0) L 06/04/23 14:20 MCHC 29.8 g/dL (30.0-36.0) L 06/04/23 14:20 RDW 18.9 % (12.1-15.1) H 06/04/23 14:20 Plt Count 223 10^3/cmm (130-400) 06/04/23 14:20 MPV 9.1 fL (7.4-10.4) 06/04/23 14:20 Neut % (Auto) 61.9 % 06/04/23 14:20 Lymph % (Auto) 28.1 % 06/04/23 14:20 Beadle % (Auto) 7.9 % 06/04/23 14:20 Eos % (Auto) 1.7 % 06/04/23 14:20 Baso % (Auto) 0.3 % 06/04/23 14:20 Neut # (Auto) 4.47 10^3/uL (1.8-7.7) 06/04/23 14:20 Lymph # (Auto) 2.0 10^3/uL (0.8-4.8) 06/04/23 14:20 Beadle # (Auto) 0.6 10^3/uL (0.2-0.9) 06/04/23 14:20 Eos # (Auto) 0.1 10^3/uL (0.0-0.8) 06/04/23 14:20 Baso # (Auto) 0.0 10^3/uL (0.0-0.1) 06/04/23 14:20 Nucleated RBC % (auto) 0 % 06/04/23 14:20 Nucleated RBCs # 0.0 /100WBC 06/04/23 14:20 Sodium 140 mmol/L (136-145) 06/04/23 14:20 Potassium 3.6 mmol/L (3.5-5.1) 06/04/23 14:20 Chloride 105 mmol/L (98-107) 06/04/23 14:20 Carbon Dioxide 27 mmol/L (22-29) 06/04/23 14:20 Anion Gap 11.6 (5-19) 06/04/23 14:20 BUN 11 mg/dL (6-20) 06/04/23 14:20 Creatinine 0.7 mg/dL (0.5-0.9) 06/04/23 14:20 GFR Calculation 95.2 mL/min (90-130) 06/04/23 14:20 Glucose 76 mg/dL (65-115) 06/04/23 14:20 Calculated Osmolality 288 mOsm/kg (285-295) 06/04/23 14:20 Calcium 8.7 mg/dL (8.5-10.5) 06/04/23 14:20 Total Bilirubin 0.2 mg/dL (0.15-1.2) 06/04/23 14:20 AST 10 U/L (0-32) 06/04/23 14:20 ALT 9 U/L (0-33) 06/04/23 14:20 Alkaline Phosphatase 62 U/L (35-105) 06/04/23 14:20 Troponin T Baseline 6 ng/L (0-10) 06/04/23 14:20 Total Protein 6.5 g/dL (6.6-8.7) L 06/04/23 14:20 Albumin 3.7 g/dL (3.5-5.2) 06/04/23 14:20 Globulin 2.8 g/dL (1.3-4.6) 06/04/23 14:20 Urine Color Yellow (Yellow) 06/04/23 14:17 Urine Appearance Hazy (CLEAR) A 06/04/23 14:17 Urine pH 8 (5-7) H 06/04/23 14:17 Ur Specific Seaman 1.010 (1.005-1.030) 06/04/23 14:17 Urine Protein Neg (Negative) 06/04/23 14:17 Urine Glucose (UA) Norm (Normal) 06/04/23 14:17 Urine Ketones Negative (Negative) 06/04/23 14:17 Urine Blood Neg (Negative) 06/04/23 14:17 Urine Nitrate Negative (Negative) 06/04/23 14:17 Urine Bilirubin Neg (Negative) 06/04/23 14:17 Prot Sulfosalicylic Acd Negative (Negative) 06/04/23 14:17 Urine Urobilinogen Norm mg/dL (Negative) 06/04/23 14:17 Ur Leukocyte Esterase Negative (Negative) 06/04/23 14:17 Discharge Plan Discharge Patient Disposition: Home Clinical Impression: Atypical chest pain, Headache, Cellulitis Condition: Stable Prescriptions: New promethazine 25 mg tablet 25 mg PO Q6H PRN (Reason: headache) Qty: 20 0RF diclofenac sodium 75 mg tablet,delayed release (DR/EC) 75 mg PO Q12H PRN (Reason: pain) Qty: 20 0RF Bactrim DS 800-160 mg tablet 1 tab PO Q12H 7 Days Qty: 14 0RF No Action (DME) pen needle, diabetic 33 gauge x 5/32 needle See Rx Instructions .ROUTE .MEDSUPPLY Qty: 100 5RF Rx Instructions: 1 time day clobetasol 0.05 % ointment 1 applic topical .twice weekly Qty: 45 1RF Rx Instructions: apply a thin film to the affected area Flovent HFA 110 mcg/actuation HFA aerosol inhaler 2 puff inhalation BID Qty: 12 2RF albuterol sulfate [ProAir HFA] 90 mcg/actuation HFA aerosol inhaler 2 puff inhalation Q6H PRN (Reason: shortness of breath or wheezing) Qty: 18 2RF fluticasone propionate [Flonase Allergy Relief] 50 mcg/actuation spray,suspension 2 spray intranasal DAILY PRN (Reason: Allergy Symptoms) Qty: 16 2RF bupropion HCl [Wellbutrin XL] 300 mg tablet extended release 24 hr 300 mg PO QAM Qty: 30 1RF zonisamide [Zonegran] 25 mg capsule 25 mg PO BID Qty: 60 0RF Rx Instructions: (NOT STARTED OF 06/04/23) ferrous gluconate 324 mg (38 mg iron) tablet 324 mg PO BID Qty: 60 2RF oxycodone 15 mg tablet 7.5 mg PO Q8H PRN (Reason: Pain) doxepin 50 mg capsule 50 mg PO BEDTIME valacyclovir 500 mg tablet 500 mg PO QAM Colace 100 mg capsule 100 mg PO QAM norethindrone acetate 5 mg tablet 5 mg PO QAM Lexapro 10 mg tablet 10 mg PO BEDTIME Victoza 3-David 0.6 mg/0.1 mL (18 mg/3 mL) pen injector 1.8 mg SUBCUT QAM Discharge Orders: Discharge ED (Routine); Ordered 06/04/23 Ordered By: Lee Redding Referrals: Adalgisa Mitchell, [facility] [Primary Care Provider] - Discharge Diet: Usual diet Discharge Activity: Increase activity as tolerated Patient Instructions: Opioid Safety, Pain Management Activity Restrictions/Additional Instructions: You were seen in the emergency room today with complaints of chest pain headache and a red spot on your left thigh. Your EKGs and cardiac enzymes were negative CT of your head was negative. You were given a prescription for an antibiotic for the skin infection on your left thigh as well as medications to use for headache. Chest pain appears to be noncardiac in nature. Follow-up with your primary care provider for further evaluation. Coding Level of Care Code ED [employer] for Edy Chaudhary
--- NOTE | 2023-06-04 14:09 | ECG_ITS ---
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 Measurements Intervals [place] Rate: 80 P: 46 ID: [id number] QRS: 21 QRSD: 100 T: 45 QT: 386 QTc: 448 Interpretive Statements SINUS RHYTHM LOW QRS VOLTAGE IN PRECORDIAL LEADS [QRS DEFLECTION < 1.0 mV IN CHEST LEADS] Compared to ECG 09/23/2020 18:59:01 Low QRS voltage now present Electronically Signed On 06-04-2023 14:20:37 CDT by Kayla Avery M.D. [id number]
--- NOTE | 2023-06-04 14:12 | XR_ITS ---
WS: [id number] Portable AP upright chest, 06/04/2023 Clinical Data: dyspnea/cough Comparison: Portable chest, 08/19/2021. Findings: No nodules, masses or effusions are seen. The heart is normal. The pulmonary vascularity is not increased. No pneumonia or pneumothorax is seen. There is a posterior thoracolumbar fusion. Impression: Negative chest.
[2023-06-04 14:22] LABS: Add Urine Microscopic? NO; Charge for UA Resulting for Rev
[2023-06-04 14:31] LABS: Basophils % 0.3 %; Eosinophils # 0.1 10^3/uL (0.0-0.8); Eosinophils % 1.7 %; Hematocrit 35.2 % (37.0-47.0); Hemoglobin 10.5 g/dL (11.5-15.3); Lymphocytes % 28.1 %; Mean Corpuscular HGB Conc 29.8 g/dL (30.0-36.0); Mean Corpuscular Hemoglobin 25.3 pg (28.0-34.0); Mean Corpuscular Volume 84.8 fl (81-99); Mean Platelet Volume 9.1 fL (7.4-10.4); Monocytes # 0.6 10^3/uL (0.2-0.9); Monocytes % 7.9 %; Neutrophils # 4.47 10^3/uL (1.8-7.7); Neutrophils % 61.9 %; Nucleated Red Blood Cells % 0 %; Platelet Count 223 10^3/cmm (130-400); Red Blood Count 4.15 10^6/uL (4.1-5.3); Red Cell Distribution Width 18.9 % (12.1-15.1); White Blood Count 7.2 10^3/uL (4.0-10.0)
[2023-06-04 14:33] LABS: Bilirubin Urine Neg (Negative); Blood Urine Neg (Negative); Glucose Urine UA Norm (Normal); Ketones Urine Negative (Negative); Leukocyte Esterase Urine Negative (Negative); Nitrate Urine Negative (Negative); Protein Urine Neg (Negative); Sulfosalicylic Acid Urine Negative (Negative); Urine Appearance Hazy (CLEAR); Urine Color Yellow (Yellow); Urobilinogen Urine Norm (Negative); pH Urine 8 (5-7)
--- NOTE | 2023-06-04 14:34 | CTR_ITS ---
PROCEDURE INFORMATION: Exam: CT Head Without Contrast Exam date and time: 06/04/2023 2:50 PM Age: 33 years old Clinical indication: Pain; Visual disturbance; Headache; Additional info: Headache/dbl vision TECHNIQUE: Imaging protocol: Computed tomography of the head without contrast. Axial, coronal and sagittal reformatted images were created and reviewed. Radiation optimization: All CT scans at this facility use at least one of these dose optimization techniques: automated exposure control; mA and/or kV adjustment per patient size (includes targeted exams where dose is matched to clinical indication); or iterative reconstruction. REPORTING DATA: Count of CT and Cardiac NM exams in prior 12 months: This patient has received 0 known CTs and 0 known cardiac nuclear medicine studies in the 12 months prior to the current study. COMPARISON: CT head wo con* [id number] 01/14/2020 7:40 PM RADIATION DOSE METRICS: Total DLP (mGy-cm): 1042.18 FINDINGS: Brain: No CT evidence of acute intracranial hemorrhage or acute territorial infarction. No significant mass effect or midline shift. Basal cisterns patent. Cerebral ventricles: Normal in size and configuration. Paranasal sinuses: Unremarkable. No fluid levels. Mastoid air cells: Grossly unremarkable. Bones/joints: No acute osseous abnormality. Soft tissues: Grossly unremarkable. CT/CT head wo con* [id number] IMPRESSION: No CT evidence of acute intracranial pathology.
--- NOTE | 2023-06-04 14:47 | PC.PHAR ---
PT STATES SHE TAKES CARE OF HER OWN MEDICATIONS-PT STATES SHE HASNT STARTED TAKING THE ZONEGRAN 25MG BID WRITTEN ON 06/02/23 PT STATES NOT PICKED UP FROM THE PHARMACY-
[2023-06-04 14:50] LABS: Alanine Aminotransferase 9 U/L (0-33); Albumin Level 3.7 g/dL (3.5-5.2); Alkaline Phosphatase 62 U/L (35-105); Anion Gap 11.6 (5-19); Aspartate Amino Transferase 10 U/L (0-32); Blood Urea Nitrogen 11 mg/dL (6-20); Calcium 8.7 mg/dL (8.5-10.5); Carbon Dioxide 27 mmol/L (22-29); Chloride 105 mmol/L (98-107); Creatinine Clr Calc Pharmacy 149.0546; Globulin 2.8 g/dL (1.3-4.6); Glomerular Filtration Rate 95.2 mL/min (90-130); Glucose 76 mg/dL (65-115); Osmolality Calculated 288 mOsm/kg (285-295); Potassium 3.6 mmol/L (3.5-5.1); Sodium 140 mmol/L (136-145); Total Bilirubin 0.2 mg/dL (0.15-1.2); Total Protein 6.5 g/dL (6.6-8.7)
[2023-06-04 14:51] LABS: Troponin(5th) Baseline 6 ng/L (0-10)
[2023-06-04] MEDS: promethazine 25 mg/mL SDV 1 mL IM (15:28)
[2023-06-04] MEDS: ketorolac 30 mg/mL INJ 60 MG IM (15:29)
== END 2023-06-04 15:30 | disposition home or self-care (01) ==
PROVIDERS: Emergency Provider Family Medicine; PCP Nurse Practitioner
DX: R07.89 Other chest pain (principal); R51.9 Headache, unspecified; L03.90 Cellulitis, unspecified
CPT/HCPCS: 36415; 70450; 71045; 80053; 81003; 84484; 85025; 93005; 96372; 99285; J1885; J2550

== ENCOUNTER → 2023-06-07 15:49 | Outpatient (BNVA) | payer MEDICAID, SELFPAY | PROVIDERS: PCP Nurse Practitioner; Visit Provider Nurse Practitioner Family | DX: R05.9 Cough, unspecified (principal) | CPT/HCPCS: 87426 ==

== ENCOUNTER 2023-06-08 19:02 | Emergency (ER) | payer MEDICAID, SELFPAY ==
[2023-06-08 19:08] VITALS: BP 103/63; PULSE 96; RESP 18; TEMP 37.7; O2SAT 98; BMI 36.5
--- NOTE | 2023-06-08 19:41 | CTR_ITS ---
PROCEDURE INFORMATION: Exam: CT Head Without Contrast Exam date and time: 06/08/2023 8:10 PM Age: 33 years old Clinical indication: Pain; Headache TECHNIQUE: Imaging protocol: Computed tomography of the head without contrast. Radiation optimization: All CT scans at this facility use at least one of these dose optimization techniques: automated exposure control; mA and/or kV adjustment per patient size (includes targeted exams where dose is matched to clinical indication); or iterative reconstruction. REPORTING DATA: Count of CT and Cardiac NM exams in prior 12 months: This patient has received [address] and 0 known cardiac nuclear medicine studies in the 12 months prior to the current study. COMPARISON: CT head wo con* [id number] 06/04/2023 2:50 PM RADIATION DOSE METRICS: Total DLP (mGy-cm): 1081.68 FINDINGS: Brain: No acute infarct. No hemorrhage. Unremarkable white matter for age. No mass effect. Cerebral ventricles: No ventriculomegaly. Paranasal sinuses: No significant inflammation. No fluid levels. Mastoid air cells: Visualized mastoid air cells are well aerated. Bones/joints: Unremarkable. No acute fracture. Soft tissues: Unremarkable. CT/CT head wo con* [id number] IMPRESSION: No acute intracranial abnormality.
--- NOTE | 2023-06-08 19:47 | ED_ITS ---
HPI - Dizziness General: Chief Complaint: Dizziness Stated Complaint: neck stiffness, eye pain, headache,n/v Time Seen by Provider: 06/08/23 19:36 History of Present Illness: HPI Narrative: 33-year-old female comes in today for complaints of illness x5 days. Patient reports fever along with body aches, headache, nausea and vomiting, and eye discomfort. Patient appears mildly unwell but not toxic. Patient reports negative flu test and COVID test. Patient was referred to the emergency department from her primary care office for further evaluation. No neural deficits are noted on exam. Patient does have a history of asthma, anemia, obesity. Associated symptoms: Reports headache(s), nausea and vomiting; Denies chest pain Review of Systems General: Reports: 10 or more systems reviewed and unremarkable except in HPI and below Const: Reports: fever(s) Eyes: Reports: eye discomfort ENMT: Reports: nasal discharge Card: Denies: chest pain Resp: Reports: non-productive cough GI: Reports: nausea and vomiting : Denies: difficulty voiding Musc: Reports: neck pain, back pain and extremity pain Skin/Breast: Denies: rash Neuro: Reports: headache(s) PFSH ED PFSH: Medical History Anogenital lichen sclerosus Asthma Chronic pain Back Iron deficiency anemia LGSIL on Pap smear of cervix (~2021) No pertinent past medical history Neghx: htn,dm,thyroid, dvt/pe PCP: Kayley Mitchell Obesity, Class II, BMI 35-39.9 Psychiatric care Surgical History H/O section (~2014) History of back surgery (~2003) History of back surgery (~2003) had to have a blood clot removed from her back at [facility] in [place]. History of section (~2014) Emergent performed by Dr. Mackey. Tubal ligation performed at the same time. History of cholecystectomy (~2021) History of cholecystectomy (~2021) History of tubal ligation (~2014) No pertinent past surgical history Family History Grandmother Cancer Breast and throat Diabetes maternal Breast cancer, Onset Age: 40 maternal Stroke maternal paternal Hypertension maternal Mother Cancer Skin Diabetes Breast cancer, Onset Age: 30 Family/Other Breast cancer maternal aunts Mother Breast cancer Diabetes Grandmother Breast cancer maternal Diabetes maternal Hypertension maternal Stroke maternal paternal Family/Other Breast cancer paternal aunts Denies family history of Colon cancer Ovarian cancer Heart disease Family history of thyroid problem Uterine cancer Hyperchloremia Social History Smoking and tobacco status: current every day smoker Second hand smoke exposure: Yes Smoking risk assessment/counseling performed?: No Alcohol intake: former Desire information about alcohol rehabilitation?: No Counseling given: No Substance/Drug Use: former Desire information about substance/drug rehabilitation?: No Counseling given: No Adopted: No Caregiver/support person: No Lives independently: Yes Household members: significant other and children Housing: House Marital status: Single Number of children: 2 service: No Current occupational status: employed Current occupation: [employer] Pets and animals: No Do you think of yourself as: Straight/Heterosexual Current gender identity: Female Physical Exam Const: COMMON NORMALS: alert HENMT: COMMON NORMALS: normocephalic HEAD & SCALP: normocephalic MOUTH: Normal oral and palatal mucosa present Neck/C-Spine: COMMON NORMALS: full ROM and no meningeal signs Lymph: LYMPHATIC: no lymphadenopathy noted Chest: COMMONS NORMALS: normal inspection of the chest Resp: COMMON NORMALS: normal respiratory effort and clear to auscultation bilaterally AUSCULTATION: clear to auscultation bilaterally Cardio: COMMON NORMALS: regular rate and regular rhythm RATE: regular rate RHYTHM: regular rhythm GI: COMMON NORMALS: Soft to palpation and non-tender PALPATION: Yes Soft to palpation : COMMON NORMALS: Yes no CVA tenderness BLADDER/KIDNEY EXAM: Yes no CVA tenderness Back/Pelvis: COMMON NORMALS: no CVA tenderness THORACIC SPINE/UPPER BACK: Yes paraspinal muscle tenderness LUMBAR SPINE/LOWER BACK: Yes paraspinal muscle tenderness Extremity: COMMON NORMALS: no pedal edema Neuro: SENSORIUM/ORIENTATION: Yes alert MENINGEAL SIGNS: Yes no meningeal signs Skin: COMMON NORMALS: turgor normal GENERAL SKIN EXAM: turgor normal Course Vital Signs: Vital signs: Vital Signs Temperature 99.8 F H 06/08/23 19:08 Pulse Rate 96 06/08/23 19:08 Respiratory Rate 18 06/08/23 19:08 Blood Pressure 103/63 06/08/23 19:08 Pulse Oximetry 98 06/08/23 19:08 Oxygen Delivery Me thod Room Air 06/08/23 19:08 MDM - Dizziness Medical Decision Making Patient comes in today with fever, nausea vomiting, cough, and headache for 5 days. On exam patient has decreased air movement in lower lung elder. Skin is warm and dry. Vital signs are normal except for some mild elevation temperature of 99.8. Differential diagnosis includes viral syndrome, pneumonia, malingerin g, urinary tract infection, dehydration, migraine, meningitis. No meningeal signs were noted. CT of the head was unremarkable. Chest x-ray noted bilateral lower lobe atelectasis versus infiltrates. CRP was elevated at 48. White blood cell count was normal. Suspicion for viral pneumonia versus a bacterial pneumonia. We will go ahead and treat with Levaquin 750 mg 1 tablet daily for 7 days. Patient was treated with IV fluids and medications for pain in the emergency department and 1 dose of dexamethasone Lab Data 06/08/23 19:35 06/08/23 19:[address] 06/08/23 19:41 IMPRESSION: No acute intracranial abnormality. Chest X-Ray 06/08/23 20:29 IMPRESSION: Minimal bibasilar atelectasis or infiltrates. Correlate for pulmonary infection. Laboratory Results WBC 4.21 10^3/uL (3.29-11.43) 06/08/23 19:35 RBC 4.08 10^6/uL (3.85-5.65) 06/08/23 19:35 Hgb 10.60 g/dL (11.27-16.99) L 06/08/23 19:35 Hct 33.0 % (36-47) L 06/08/23 19:35 MCV 80.9 fl (85-98) L 06/08/23 19:35 MCH 26.0 pg (27-33) L 06/08/23 19:35 MCHC 32.1 g/dL (30-55) 06/08/23 19:35 RDW 18.5 % (12.1-15.1) H 06/08/23 19:35 Plt Count 177 10^3/cmm (157-399) 06/08/23 19:35 MPV 9.2 fL (7.4-10.4) 06/08/23 19:35 Neut % (Auto) 79.9 % 06/08/23 19:35 Lymph % (Auto) 7.1 % 06/08/23 19:35 [place] % (Auto) 7.8 % 06/08/23 19:35 Eos % (Auto) 4.5 % 06/08/23 19:35 Baso % (Auto) 0.2 % 06/08/23 19:35 Neut # (Auto) 3.36 10^3/uL (1.8-7.7) 06/08/23 19:35 Lymph # (Auto) 0.3 10^3/uL (0.8-4.8) L 06/08/23 19:35 [place] # (Auto) 0.3 10^3/uL (0.2-0.9) 06/08/23 19:35 Eos # (Auto) 0.2 10^3/uL (0.0-0.8) 06/08/23 19:35 Baso # (Auto) 0.0 10^3/uL (0.0-0.1) 06/08/23 19:35 Nucleated RBC % (auto) 0 % 06/08/23 19:35 Nucleated RBCs # 0.0 /100WBC 06/08/23 19:35 Sodium 137 mmol/L (136-145) 06/08/23 19:35 Potassium 3.3 mmol/L (3.5-5.1) L 06/08/23 19:35 Chloride 103 mmol/L (98-107) 06/08/23 19:35 Carbon Dioxide 24 mmol/L (22-29) 06/08/23 19:35 Anion Gap 13.3 (5-19) 06/08/23 19:35 BUN 9 mg/dL (6-20) 06/08/23 19:35 Creatinine 0.7 mg/dL (0.5-0.9) 06/08/23 19:35 GFR Calculation 95.2 mL/min (90-130) 06/08/23 19:35 Glucose 99 mg/dL (65-115) 06/08/23 19:35 Calculated Osmolality 283 mOsm/kg (285-295) L 06/08/23 19:35 Calcium 8.4 mg/dL (8.5-10.5) L 06/08/23 19:35 Total Bilirubin 0.3 mg/dL (0.15-1.2) 06/08/23 19:35 AST 9 U/L (0-32) 06/08/23 19:35 ALT 9 U/L (0-33) 06/08/23 19:35 Alkaline Phosphatase 53 U/L (35-105) 06/08/23 19:35 C-Reactive Protein 48.8 mg/L (0.0-4.9) H 06/08/23 19:35 Total Protein 6.7 g/dL (6.6-8.7) 06/08/23 19:35 Albumin 3.6 g/dL (3.5-5.2) 06/08/23 19:35 Globulin 3.1 g/dL (1.3-4.6) 06/08/23 19:35 Discharge Plan Discharge Patient Disposition: Home Clinical Impression: Pneumonia Qualifiers: Pneumonia type: due to unspecified organism Laterality: bilateral Lung locatio n: lower lobe of lung Qualified Code(s): J18.9 - Pneumonia, unspecified organism Condition: Stable Prescriptions: New levofloxacin 750 mg tablet 750 mg PO DAILY Qty: 6 0RF No Action (DME) pen needle, diabetic 33 gauge x 5/32 needle See Rx Instructions .ROUTE .MEDSUPPLY Qty: 100 5RF Rx Instructions: 1 time day clobetasol 0.05 % ointment 1 applic topical .twice weekly Qty: 45 1RF Rx Instructions: apply a thin film to the affected area Flovent HFA 110 mcg/actuation HFA aerosol inhaler 2 puff inhalation BID Qty: 12 2RF albuterol sulfate [ProAir HFA] 90 mcg/actuation HFA aerosol inhaler 2 puff inhalation Q6H PRN (Reason: shortness of breath or wheezing) Qty: 18 2RF fluticasone propionate [Flonase Allergy Relief] 50 mcg/actuation spray,suspension 2 spray intranasal DAILY PRN (Reason: Allergy Symptoms) Qty: 16 2RF bupropion HCl [Wellbutrin XL] 300 mg tablet extended release 24 hr 300 mg PO QAM Qty: 30 1RF zonisamide [Zonegran] 25 mg capsule 25 mg PO BID Qty: 60 0RF Rx Instructions: (NOT STARTED OF 06/04/23) ferrous gluconate 324 mg (38 mg iron) tablet 324 mg PO BID Qty: 60 2RF oxycodone 15 mg tablet 7.5 mg PO Q8H PRN (Reason: Pain) doxepin 50 mg capsule 50 mg PO BEDTIME valacyclovir 500 mg tablet 500 mg PO QAM Colace 100 mg capsule 100 mg PO QAM norethindrone acetate 5 mg tablet 5 mg PO QAM Lexapro 10 mg tablet 10 mg PO BEDTIME Victoza 3-David 0.6 mg/0.1 mL (18 mg/3 mL) pen injector 1.8 mg SUBCUT QAM promethazine 25 mg tablet 25 mg PO Q6H PRN (Reason: headache) Qty: 20 0RF diclofenac sodium 75 mg tablet,delayed release (DR/EC) 75 mg PO Q12H PRN (Reason: pain) Qty: 20 0RF Bactrim DS 800-160 mg tablet 1 tab PO Q12H 7 Days Qty: 14 0RF Discharge Orders: Discharge ED (Routine); Ordered 06/08/23 Ordered By: Ramana Fair Referrals: Adalgisa Mitchell, [facility] [Primary Care Provider] - Discharge Diet: Usual diet Patient Instructions: Pneumonia (ED) Activity Restrictions/Additional Instructions: Home and rest. Drink plenty of water and fluids. Use acetaminophen and ibuprofen for fever and discomfort. Take antibiotic Levaquin 750 mg 1 tablet daily for total of 7 doses. Follow-up with primary care in 2 to 3 days for re check. Return to ED for new concerns or worsening symptoms. Coding Level of Care Code ED No Experience for Edy Chaudhary
[2023-06-08 20:05] LABS: Basophils % 0.2 %; Eosinophils # 0.2 10^3/uL (0.0-0.8); Eosinophils % 4.5 %; Lymphocytes # 0.3 10^3/uL (0.8-4.8); Lymphocytes % 7.1 %; Mean Corpuscular HGB Conc 32.1 g/dL (30-55); Mean Corpuscular Volume 80.9 fl (85-98); Mean Platelet Volume 9.2 fL (7.4-10.4); Monocytes # 0.3 10^3/uL (0.2-0.9); Monocytes % 7.8 %; Neutrophils # 3.36 10^3/uL (1.8-7.7); Neutrophils % 79.9 %; Nucleated Red Blood Cells % 0 %; Platelet Count 177 10^3/cmm (157-399); Red Blood Count 4.08 10^6/uL (3.85-5.65); Red Cell Distribution Width 18.5 % (12.1-15.1); White Blood Count 4.21 10^3/uL (3.29-11.43)
[2023-06-08] MEDS: sodium chloride 0.9% 500 ML 999 ML IV (20:14)
[2023-06-08] MEDS: metoclopramide 5 mg/mL SDV 2 mL 10 MG IVP (20:14)
[2023-06-08] MEDS: acetaminophen 1,000 MG/100 ML PIGGYBACK 400 MG IV (20:14)
[2023-06-08] MEDS: lactated ringers 1,000 ML 999 ML IV (20:15)
[2023-06-08] MEDS: diphenhydrAMINE 50 mg/mL SDV 1mL 12.5 MG IVP (20:15)
[2023-06-08 20:22] LABS: Alanine Aminotransferase 9 U/L (0-33); Albumin Level 3.6 g/dL (3.5-5.2); Alkaline Phosphatase 53 U/L (35-105); Anion Gap 13.3 (5-19); Aspartate Amino Transferase 9 U/L (0-32); Blood Urea Nitrogen 9 mg/dL (6-20); C Reactive Protein 48.8 mg/L (0.0-4.9); Calcium 8.4 mg/dL (8.5-10.5); Carbon Dioxide 24 mmol/L (22-29); Chloride 103 mmol/L (98-107); Globulin 3.1 g/dL (1.3-4.6); Glomerular Filtration Rate 95.2 mL/min (90-130); Glucose 99 mg/dL (65-115); Osmolality Calculated 283 mOsm/kg (285-295); Potassium 3.3 mmol/L (3.5-5.1); Sodium 137 mmol/L (136-145); Total Bilirubin 0.3 mg/dL (0.15-1.2); Total Protein 6.7 g/dL (6.6-8.7)
--- NOTE | 2023-06-08 20:29 | XRR_ITS ---
PROCEDURE INFORMATION: Exam: XR Chest Exam date and time: 06/08/2023 8:38 PM Age: 33 years old Clinical indication: Cough and fever; Additional info: Fever, cough TECHNIQUE: Imaging protocol: Radiologic exam of the chest. Views: 1 view. COMPARISON: CR XR chest 1V portable [id number] 06/04/2023 2:25 PM FINDINGS: Lungs: Stable 4 mm left upper lobe calcified granuloma. Minimal bibasilar atelectasis or infiltrates. Pleural spaces: Unremarkable. No pleural effusion. No pneumothorax. Heart/Mediastinum: Unremarkable. No cardiomegaly. Bones/joints: Thoracolumbar spinal fusion changes are stable. XR/XR chest 1V portable [id number] IMPRESSION: Minimal bibasilar atelectasis or infiltrates. Correlate for pulmonary infection.
[2023-06-08] MEDS: levoFLOXacin 750 mg Tablet PO (21:22)
[2023-06-08] MEDS: dexamethasone 10 mg/mL INJ IVP (21:23)
[2023-06-08 21:31] LABS: Add Urine Microscopic? NO; Charge for UA Resulting for Rev
[2023-06-08 21:33] VITALS: PULSE 79; RESP 16; O2SAT 97
[2023-06-08 21:34] VITALS: BP 103/63; PULSE 79; RESP 16; TEMP 37.7; O2SAT 97
[2023-06-08 21:35] LABS: Bilirubin Urine Neg (Negative); Blood Urine Neg (Negative); Glucose Urine UA Norm (Normal); Ketones Urine Negative (Negative); Leukocyte Esterase Urine Negative (Negative); Nitrate Urine Negative (Negative); Protein Urine Neg (Negative); Urine Appearance Clear (CLEAR); Urine Color Yellow (Yellow); Urobilinogen Urine 1 mg/dL (Negative); pH Urine 6 (5-7)
[2023-06-08 22:12] LABS: Adenovirus Not Detected (NOT DETECT); Chlamydia Pneumoniae Not Detected (NOT DETECT); Coronavirus 229E,HKU1,NL63,OC4 Not Detected (NOT DETECT); Human Metapneumovirus Not Detected (NOT DETECT); Human Rhinovirus/Enterovirus Not Detected (NOT DETECT); Influenza A Not Detected (NOT DETECT); Influenza A H1 Not Detected (NOT DETECT); Influenza A H1-2009 Not Detected (NOT DETECT); Influenza A H3 Not Detected (NOT DETECT); Influenza B Not Detected (NOT DETECT); Mycoplasma Pneumoniae Not Detected (NOT DETECT); Parainfluenza Virus Type 1 Not Detected (NOT DETECT); Parainfluenza Virus Type 2 Not Detected (NOT DETECT); Parainfluenza Virus Type 3 Not Detected (NOT DETECT); Parainfluenza Virus Type 4 Not Detected (NOT DETECT); Respiratory Syncytial Virus A Not Detected (NOT DETECT); Respiratory Syncytial Virus B Not Detected (NOT DETECT); SARS-COV-2 Not Detected (NOT DETECT)
== END 2023-06-08 21:44 | disposition home or self-care (01) ==
PROVIDERS: Emergency Medicine; Emergency Provider Nurse Practitioner Family; PCP Nurse Practitioner
DX: J18.9 Pneumonia, unspecified organism (principal); F17.210 Nicotine dependence, cigarettes, uncomplicated
CPT/HCPCS: 70450; 71045; 80053; 81003; 85025; 86140; 87635; 96361; 96365; 96375; 99285; J0131; J1100; J1200; J2765; J7040; J7120

== ENCOUNTER → 2023-06-14 09:12 | Outpatient (BNVA) | payer MEDICAID, SELFPAY | PROVIDERS: PCP Nurse Practitioner; Visit Provider Nurse Practitioner | DX: N93.8 Other specified abnormal uterine and vaginal bleeding (principal); E87.6 Hypokalemia; J18.9 Pneumonia, unspecified organism | CPT/HCPCS: 80048; 85025 ==

== ENCOUNTER 2023-06-25 08:04 | Emergency (ER) | payer MEDICAID, SELFPAY ==
[2023-06-25 08:12] VITALS: BP 125/75; PULSE 96; RESP 18; TEMP 37.6; O2SAT 100; BMI 35.2
--- NOTE | 2023-06-25 08:33 | ED_ITS ---
Documented by User: Maty Rebolledo PA-C 06/25/23 16:38 HPI - Skin/Abscess/Foreign Bdy General: Chief complaint: Skin/Abscess/Foreign Body Stated complaint: bug bite, throat tightness Time Seen by Provider: 06/25/23 08:07 Source: patient Mode of arrival: ambulatory Limitations: no limitations History of Present Illness: 33-year-old female presents to the ER today for several issues. Patient reports first she noticed a lesion on her right wrist Wednesday morning when she woke up. Patient reports it was small and has continued to grow in size. There is a central portion of it that is also getting larger. She reports it did open and drain a little bit. It is raised and slightly tender. Patient reports she did have a staph infection recently on her left hip. She reports this does not hurt like the staph infection did. At that time patient was treated with Bactrim. Patient reports she has been in and out of ERs multiple times recently for not feeling well. Patient reports she was given some antibiotics and started feeling better until the last several days. Patient reports fevers, body aches, very sore throat, swollen throat, enlarged lymph nodes, and ear fullness. Patient reports she is not taking any [id number] medications for this. Denies any known sick contacts. Patient was seen at [facility] this morning and told her strep was negative and COVID swabbed however she does not know results. Patient felt they did not do a thorough work-up on her so she came to the ER after leaving there. Patient reports for the last 3 days she has not had much of an appetite due to not feeling well. Denies any nausea or vomiting. Denies any abdominal pain. Review of Systems General: Reports: 10 or more systems reviewed and unremarkable except in HPI and below PFSH ED PFSH: Medical History Anogenital lichen sclerosus Asthma Chronic pain Back Iron deficiency anemia LGSIL on Pap smear of cervix (~2021) No pertinent past medical history Neghx: htn,dm,thyroid, dvt/pe PCP: Kayley Mitchell Obesity, Class II, BMI 35-39.9 Psychiatric care Surgical History H/O section (~2014) History of back surgery (~2003) History of back surgery (~2003) had to have a blood clot removed from her back at [facility] in [place]. History of section (~2014) Emergent performed by Dr. Mackey. Tubal ligation performed at the same time. History of cholecystectomy (~2021) History of cholecystectomy (~2021) History of tubal ligation (~2014) No pertinent past surgical history Family History Grandmother Cancer Breast and throat Diabetes maternal Breast cancer, Onset Age: 40 maternal Stroke maternal paternal Hypertension maternal Mother Cancer Skin Diabetes Breast cancer, Onset Age: 30 Family/Other Breast cancer maternal aunts Mother Breast cancer Diabetes Grandmother Breast cancer maternal Diabetes maternal Hypertension maternal Stroke maternal paternal Family/Other Breast cancer paternal aunts Denies family history of Colon cancer Ovarian cancer Heart disease Family history of thyroid problem Uterine cancer Hyperchloremia Social History Smoking and tobacco status: current every day smoker Second hand smoke exposure: Yes Smoking risk assessment/counseling performed?: No Alcohol intake: former Desire information about alcohol rehabilitation?: No Counseling given: No Substance/Drug Use: former Desire information about substance/drug rehabilitation?: No Counseling given: No Adopted: No Caregiver/support person: No Lives independently: Yes Household members: significant other and children Housing: House Marital status: Single Number of children: 2 service: No Current occupational status: employed Current occupation: [employer] Pets and animals: No Do you think of yourself as: Straight/Heterosexual Current gender identity: Female Physical Exam Const: COMMON NORMALS: no acute distress, average body habitus, patient oriented x3, no limitations, healthy appearing, alert and well nourished OTHER: No respiratory distress noted despite patient feeling like her throat is closing. HENMT: COMMON NORMALS: normocephalic, atraumatic, external ears normal, TM's normal bilaterally, Normal external nose present and Normal nasal mucous membranes and turbinates present HEAD & SCALP: normocephalic and atraumatic NOSE: Normal external nose present and Normal nasal mucous membranes and turbin ates present EXTERNAL EAR: Yes external ears normal TYMPANIC MEMBRANE: TM's normal bilaterally MOUTH: tongue abnormal white, coated THROAT: posterior oropharynx abnormal edema and erythema; no exudates OTHER: hot potato voice noted Eye: COMMON NORMALS: Equal, round and reactive pupils present and conjunctivae normal CONJUNCTIVA: Yes conjunctivae normal PUPIL: Yes Equal, round and reactive pupils present Neck/C-Spine: COMMON NORMALS: full ROM and supple Lymph: LYMPHATIC: lymphadenopathy (Tender anterior cervical lymphadenopathy but equal bilaterally.) Resp: COMMON NORMALS: normal respiratory effort, No retractions and clear to auscultation bilaterally AUSCULTATION: clear to auscultation bilaterally Cardio: COMMON NORMALS: regular rate, regular rhythm and No murmurs present (Cardio) RATE: regular rate RHYTHM: regular rhythm GI: COMMON NORMALS: Normal to inspection, nondistended, normoactive bowel sounds present, Soft to palpation and non-tender PALPATION: Yes Soft to palpation Extremity: COMMON NORMALS: normal to inspection, full ROM and no pedal edema Neuro: COMMON NORMALS: patient oriented x3 SENSORIUM/ORIENTATION: Yes alert Psych: COMMON NORMALS: mental status grossly normal, Normal thought process present and cooperative THOUGHT PROCESS: Normal thought process present Skin: NARRATIVE SKIN EXAM: Patient is noted to have a 1 cm x 1 cm raised erythematous lesion to the right wrist, lateral side. There is a central area of scab that appears to have opened and drained at some point. This has well demarcated borders. No surrounding erythema. Nontender. No bruising noted. No other similar skin lesions to the area. Course ED course: Patient presents for an insect bite to her right wrist for the last 3 days and also worsening sore throat, fever body aches and generally not feeling well. Patient seen at [facility] this morning and told it was not strep. Patient did not get COVID swab results. She was not happy with her care there so she came to the ER. Patient reports she was treated with antibiotics a couple weeks ago for similar symptoms and improved before worsening again 3 to 4 days ago. Patient reports that she has had no appetite for 3 to 4 days. On exam she is noted to have a significantly erythematous throat with mild vesicles but no exudate. Throat does not appear swollen. She does have tender anterior cervical lymphadenopathy. No signs of respiratory distress. Patient's tongue is coated with a white film however patient denies any tenderness. Patient noted to be borderline febrile at 99.7 in the ER. The lesion on the wrist does not appear to be overly infected however given recent history of staph infection I would recommend we go ahead and treat for MRSA. We will go ahead and get lab work in addition to strep, COVID, and mono given patient's symptoms. Reevaluation(s): Reevaluation #1: COVID, strep and mono negative. On CBC, patient is leukopenic and severely neutropenic. No history of this. Given these findings, patient should be on reverse precautions. We will go ahead and start patient on antibiotics prophyla ctically. Discussed this patient with Dr. Redding who recommends further work- up. We will go ahead and get blood cultures, HIV, hepatitis, and lactic acid. We will also CT the chest abdomen pelvis and also the neck given the lymphadenopathy. Patient does endorse a significant family history of cancers including throat cancer, breast cancer, and skin cancers. Time: : Reevaluation #2: Discussed findings with patient. She prefers to go to [facility]. Time: 12: Consultations: Consultation #1: Spoke with Dr. Hernandez, radiologist regarding CT findings. Patient was noted to have bilateral lymphadenopathy of the neck. Could possibly be caused by something like mono however given monoscreen was negative and patient is severely neutropenic, he cannot rule out a lymphoma or leukemia. There was also noted to be a 1.8 cm breast mass. Patient's liver and spleen were slightly enlarged. Time: 12: Consultation #2: Spoke with Dr. Guardado, oncologist. Given all the above findings and patient's blood counts, he recommends transfer to an outside facility who can do a further work-up including biopsies. Time: 12: Consultation #3: Dr. Byrnes at [facility] accepts patient, full admit for neutropenic fever. Time: :23 Vital Signs: Vital signs: Vital Signs Temperature 98.5 F 06/25/23 09:50 Pulse Rate 86 06/25/23 14:13 Respiratory Rate 16 06/25/23 14:13 Blood Pressure 111/59 06/25/23 14:13 Pulse Oximetry 98 06/25/23 14:13 Oxygen Delivery Me thod Room Air 06/25/23 14:13 MDM - Skin/Abscess/Foreign Bdy Medicial Decision Making Patient initially presented for a possible insect bite to the right wrist however also reported recurrent infections. Patient was treated about 3 weeks ago for a pneumonia with Levaquin. She felt better for a couple days before symptoms returned again. Patient reports intermittent fevers. Lab work was done and indicated severe neutropenia with a neutrophil count of 0.06. Patient's white count was 2.3. Labs were otherwise mostly unremarkable. Patient did have the lymphadenopathy noted on exam so a CT abdomen pelvis and neck/soft tissue was performed given the neutropenia. It was noted on CT that patient had bilateral anterior cervical lymph nodes. Spoke with the radiologist who thought may be mono however given Monospot was negative he was concerned for cancer such as leukemia or lymphoma. This is also a concern given the neutropenia. Patient also had a 1.8 cm mass noted in a breast which needed further work-up. Mother had breast cancer at age 40. Patient reports there is also family history of neck cancer. Spoke with Dr. Guardado who recommended patient be transferred for biopsies and further work-up. Patient prefers to go to [place]. Contacted [facility] who accepted patient. Dr. Byrnes will admit patient and start further work-up. Patient remained stable in the ER. Patient was 99.7 when she came into the ER. Blood pressure was stable the entire time. Pain was controlled. Patient did not require anything other than the cefepime which we gave her due to the neutropenia and the fever. Lab Data 06/25/23 08:36 06/25/23 08:36 Laboratory Results WBC 2.31 10^3/uL (3.29-11.43) L 06/25/23 08:36 RBC 4.15 10^6/uL (3.85-5.65) 06/25/23 08:36 Hgb 10.80 g/dL (11.27-16.99) L 06/25/23 08:36 Hct 35.1 % (36-47) L 06/25/23 08:36 MCV 84.6 fl (85-98) L 06/25/23 08:36 MCH 26.0 pg (27-33) L 06/25/23 08:36 MCHC 30.8 g/dL (30-55) 06/25/23 08:36 RDW 18.2 % (12.1-15.1) H 06/25/23 08:36 Plt Count 293 10^3/cmm (157-399) 06/25/23 08:36 MPV 8.7 fL (7.4-10.4) 06/25/23 08:36 Neut % (Auto) 2.5 % 06/25/23 08:36 Lymph % (Auto) 73.2 % 06/25/23 08:36 [place] % (Auto) 22.1 % 06/25/23 08:36 Eos % (Auto) 0.9 % 06/25/23 08:36 Baso % (Auto) 0.9 % 06/25/23 08:36 Neut # (Auto) 0.06 10^3/uL (1.8-7.7) L* 06/25/23 08:36 Lymph # (Auto) 1.7 10^3/uL (0.8-4.8) 06/25/23 08:36 [place] # (Auto) 0.5 10^3/uL (0.2-0.9) 06/25/23 08:36 Eos # (Auto) 0.0 10^3/uL (0.0-0.8) 06/25/23 08:36 Baso # (Auto) 0.0 10^3/uL (0.0-0.1) 06/25/23 08:36 Nucleated RBC % (auto) 0 % 06/25/23 08:36 Nucleated RBCs # 0.0 /100WBC 06/25/23 08:36 Sodium 134 mmol/L (136-145) L 06/25/23 08:36 Potassium 3.5 mmol/L (3.5-5.1) 06/25/23 08:36 Chloride 100 mmol/L (98-107) 06/25/23 08:36 Carbon Dioxide 24 mmol/L (22-29) 06/25/23 08:36 Anion Gap 13.5 (5-19) 06/25/23 08:36 BUN 9 mg/dL (6-20) 06/25/23 08:36 Creatinine 0.7 mg/dL (0.5-0.9) 06/25/23 08:36 GFR Calculation 95.2 mL/min (90-130) 06/25/23 08:36 Glucose 95 mg/dL (65-115) 06/25/23 08:36 Calculated Osmolality 276 mOsm/kg (285-295) L 06/25/23 08:36 Lactic Acid 0.8 mmol/L (0.5-2.2) 06/25/23 08:36 Calcium 8.8 mg/dL (8.5-10.5) 06/25/23 08:36 Iron 17 ug/dL (37-145) L 06/25/23 08:36 TIBC 343 mcg/dl 06/25/23 08:36 % Saturation 4.9 % (20-50) L 06/25/23 08:36 Unsat Iron Binding 326 ug/dL (112-347) 06/25/23 08:36 Hepatitis A IgM Ab Non-reactive (Nonreactive) 06/25/23 08:36 Hep Bs Antigen Non-reactive (Nonreactive) 06/25/23 08:36 Hep B Core IgM Ab Non-reactive (Nonreactive) 06/25/23 08:36 Hepatitis C Antibody Non-reactive (Nonreactive) 06/25/23 08:36 Monoscreen Negative (Negative) 06/25/23 08:36 HIV 1&2 Ab & HIV 1 Ag Non-reactive (Non-Reactiv) 06/25/23 08:36 HIV 1&2 Antibody Non-reactive (Non-Reactiv) 06/25/23 08:36 SARS-CoV-2 Ag (Rapid) negative (Negative) 06/25/23 08:36 Group A Strep Rapid Negative (Negative) 06/25/23 08:36 Critical Care Time Critical Care Time: Critical Care Time: No Discharge Plan Discharge Patient Disposition: Xfer to Cancer Center or [facility] Clinical Impression: Neutropenia with fever, Breast mass in female, Anterior cervical lymphadenopathy Condition: Stable Referrals: Adalgisa Mitchell, LANDSCAPE TECHNICIAN-C [Primary Care Provider] - Activity Restrictions/Additional Instructions: Transfer to [facility] for further work up of neutropenic fever. Coding Level of Care Code ED Endless Belt Finisher for Chg Fwd Documented by User: Lee Redding DO 06/25/23 17:13 HPI - Skin/Abscess/Foreign Bdy General: Chief complaint: Skin/Abscess/Foreign Body Stated complaint: bug bite, throat tightness Time Seen by Provider: 06/25/23 08:07 PFSH ED PFSH: Medical History Anogenital lichen sclerosus Asthma Chronic pain Back Iron deficiency anemia LGSIL on Pap smear of cervix (~2021) No pertinent past medical history Neghx: htn,dm,thyroid, dvt/pe PCP: Kayley Mitchell Obesity, Class II, BMI 35-39.9 Psychiatric care Surgical History H/O section (~2014) History of back surgery (~2003) History of back surgery (~2003) had to have a blood clot removed from her back at [facility] in [place]. History of section (~2014) Emergent performed by Dr. Mackey. Tubal ligation performed at the same time. History of cholecystectomy (~2021) History of cholecystectomy (~2021) History of tubal ligation (~2014) No pertinent past surgical history Family History Grandmother Cancer Breast and throat Diabetes maternal Breast cancer, Onset Age: 40 maternal Stroke maternal paternal Hypertension maternal Mother Cancer Skin Diabetes Breast cancer, Onset Age: 30 Family/Other Breast cancer maternal aunts Mother Breast cancer Diabetes Grandmother Breast cancer maternal Diabetes maternal Hypertension maternal Stroke maternal paternal Family/Other Breast cancer paternal aunts Denies family history of Colon cancer Ovarian cancer Heart disease Family history of thyroid problem Uterine cancer Hyperchloremia Social History Smoking and tobacco status: current every day smoker Second hand smoke exposure: Yes Smoking risk assessment/counseling performed?: No Alcohol intake: former Desire information about alcohol rehabilitation?: No Counseling given: No Substance/Drug Use: former Desire information about substance/drug rehabilitation?: No Counseling given: No Adopted: No Caregiver/support person: No Lives independently: Yes Household members: significant other and children Housing: House Marital status: Single Number of children: 2 service: No Current occupational status: employed Current occupation: [employer] Pets and animals: No Do you think of yourself as: Straight/Heterosexual Current gender identity: Female Course Vital Signs: Vital signs: Vital Signs Temperature 98.5 F 06/25/23 09:50 Pulse Rate 86 06/25/23 14:13 Respiratory Rate 16 06/25/23 14:13 Blood Pressure 111/59 06/25/23 14:13 Pulse Oximetry 98 06/25/23 14:13 Oxygen Delivery Me thod Room Air 06/25/23 14:13 MDM - Skin/Abscess/Foreign Bdy Medicial Decision Making Patient initially presented for a possible insect bite to the right wrist however also reported recurrent infections. Patient was treated about 3 weeks ago for a pneumonia with Levaquin. She felt better for a couple days before symptoms returned again. Patient reports intermittent fevers. Lab work was done and indicated severe neutropenia with a neutrophil count of 0.06. Patient's white count was 2.3. Labs were otherwise mostly unremarkable. Patient did have the lymphadenopathy noted on exam so a CT abdomen pelvis and neck/soft tissue was performed given the neutropenia. It was noted on CT that patient had bilateral anterior cervical lymph nodes. Spoke with the radiologist who thought may be mono however given Monospot was negative he was concerned for cancer such as leukemia or lymphoma. This is also a concern given the neutropenia. Patient also had a 1.8 cm mass noted in a breast which needed further work-up. Mother had breast cancer at age 40. Patient reports there is also family history of neck cancer. Spoke with Dr. Guardado who recommended patient be transferred for biopsies and further work-up. Patient prefers to go to [place]. Contacted [facility] who accepted patient. Dr. Byrnes will admit patient and start further work-up. Patient remained stable in the ER. Patient was 99.7 when she came into the ER. Blood pressure was stable the entire time. Pain was controlled. Patient did not require anything other than the cefepime which we gave her due to the neutropenia and the fever. Chart reviewed and patient discussed with midlevel. Agree with assessment and p jostin. Lab Data 06/25/23 08:36 06/25/23 08:36 Laboratory Results WBC 2.31 10^3/uL (3.29-11.43) L 06/25/23 08:36 RBC 4.15 10^6/uL (3.85-5.65) 06/25/23 08:36 Hgb 10.80 g/dL (11.27-16.99) L 06/25/23 08:36 Hct 35.1 % (36-47) L 06/25/23 08:36 MCV 84.6 fl (85-98) L 06/25/23 08:36 MCH 26.0 pg (27-33) L 06/25/23 08:36 MCHC 30.8 g/dL (30-55) 06/25/23 08:36 RDW 18.2 % (12.1-15.1) H 06/25/23 08:36 Plt Count 293 10^3/cmm (157-399) 06/25/23 08:36 MPV 8.7 fL (7.4-10.4) 06/25/23 08:36 Neut % (Auto) 2.5 % 06/25/23 08:36 Lymph % (Auto) 73.2 % 06/25/23 08:36 [place] % (Auto) 22.1 % 06/25/23 08:36 Eos % (Auto) 0.9 % 06/25/23 08:36 Baso % (Auto) 0.9 % 06/25/23 08:36 Neut # (Auto) 0.06 10^3/uL (1.8-7.7) L* 06/25/23 08:36 Lymph # (Auto) 1.7 10^3/uL (0.8-4.8) 06/25/23 08:36 [place] # (Auto) 0.5 10^3/uL (0.2-0.9) 06/25/23 08:36 Eos # (Auto) 0.0 10^3/uL (0.0-0.8) 06/25/23 08:36 Baso # (Auto) 0.0 10^3/uL (0.0-0.1) 06/25/23 08:36 Nucleated RBC % (auto) 0 % 06/25/23 08:36 Nucleated RBCs # 0.0 /100WBC 06/25/23 08:36 Sodium 134 mmol/L (136-145) L 06/25/23 08:36 Potassium 3.5 mmol/L (3.5-5.1) 06/25/23 08:36 Chloride 100 mmol/L (98-107) 06/25/23 08:36 Carbon Dioxide 24 mmol/L (22-29) 06/25/23 08:36 Anion Gap 13.5 (5-19) 06/25/23 08:36 BUN 9 mg/dL (6-20) 06/25/23 08:36 Creatinine 0.7 mg/dL (0.5-0.9) 06/25/23 08:36 GFR Calculation 95.2 mL/min (90-130) 06/25/23 08:36 Glucose 95 mg/dL (65-115) 06/25/23 08:36 Calculated Osmolality 276 mOsm/kg (285-295) L 06/25/23 08:36 Lactic Acid 0.8 mmol/L (0.5-2.2) 06/25/23 08:36 Calcium 8.8 mg/dL (8.5-10.5) 06/25/23 08:36 Iron 17 ug/dL (37-145) L 06/25/23 08:36 TIBC 343 mcg/dl 06/25/23 08:36 % Saturation 4.9 % (20-50) L 06/25/23 08:36 Unsat Iron Binding 326 ug/dL (112-347) 06/25/23 08:36 Hepatitis A IgM Ab Non-reactive (Nonreactive) 06/25/23 08:36 Hep Bs Antigen Non-reactive (Nonreactive) 06/25/23 08:36 Hep B Core IgM Ab Non-reactive (Nonreactive) 06/25/23 08:36 Hepatitis C Antibody Non-reactive (Nonreactive) 06/25/23 08:36 Monoscreen Negative (Negative) 06/25/23 08:36 HIV 1&2 Ab & HIV 1 Ag Non-reactive (Non-Reactiv) 06/25/23 08:36 HIV 1&2 Antibody Non-reactive (Non-Reactiv) 06/25/23 08:36 SARS-CoV-2 Ag (Rapid) negative (Negative) 06/25/23 08:36 Group A Strep Rapid Negative (Negative) 06/25/23 08:36 Discharge Plan Discharge Patient Disposition: Xfer to Cancer Center or [facility] Clinical Impression: Neutropenia with fever, Breast mass in female, Anterior cervical lymphadenopat hy Condition: Stable Referrals: Adalgisa Mitchell, LANDSCAPE TECHNICIAN-C [Primary Care Provider] - Activity Restrictions/Additional Instructions: Transfer to [facility] for further work up of neutropenic fever. Coding Level of Care Code ED Endless Belt Finisher for Chg Fwd
[2023-06-25 08:51] LABS: Basophils % 0.9 %; Eosinophils % 0.9 %; Hematocrit 35.1 % (36-47); Lymphocytes # 1.7 10^3/uL (0.8-4.8); Lymphocytes % 73.2 %; Mean Corpuscular HGB Conc 30.8 g/dL (30-55); Mean Corpuscular Volume 84.6 fl (85-98); Mean Platelet Volume 8.7 fL (7.4-10.4); Monocytes # 0.5 10^3/uL (0.2-0.9); Monocytes % 22.1 %; Neutrophils % 2.5 %; Nucleated Red Blood Cells % 0 %; Platelet Count 293 10^3/cmm (157-399); Red Blood Count 4.15 10^6/uL (3.85-5.65); Red Cell Distribution Width 18.2 % (12.1-15.1); White Blood Count 2.31 10^3/uL (3.29-11.43)
[2023-06-25 09:07] LABS: Anion Gap 13.5 (5-19); Blood Urea Nitrogen 9 mg/dL (6-20); Calcium 8.8 mg/dL (8.5-10.5); Carbon Dioxide 24 mmol/L (22-29); Chloride 100 mmol/L (98-107); Glomerular Filtration Rate 95.2 mL/min (90-130); Glucose 95 mg/dL (65-115); Osmolality Calculated 276 mOsm/kg (285-295); Potassium 3.5 mmol/L (3.5-5.1); Sodium 134 mmol/L (136-145)
[2023-06-25 09:18] LABS: Monoscreen Negative (Negative); Rapid Strep A Test Negative (Negative)
[2023-06-25 09:24] LABS: SARS Covid-2 Antigen negative (Negative)
[2023-06-25 09:38] LABS: Neutrophils # 0.06 10^3/uL (1.8-7.7); Slide Review Slide Review Perform
[2023-06-25 09:50] VITALS: TEMP 36.9; O2SAT 100
--- NOTE | 2023-06-25 09:53 | CT_ITS ---
WS: [id number] CT CHEST, ABDOMEN, AND PELVIS TECHNIQUE: Noncontrast CT of the chest, abdomen, and pelvis with coronal and sagittal reformatted dilma ges. CLINICAL INFORMATION: neutropenic fever COMPARISON: None. DLP: 992.[address] scans at [facility] use at least one of these dose optimization techniques: automated e xposure control; mA and/or kV adjustment per patient size (includes targeted exams where dose is matc hed to clinical indication); or iterative reconstruction. CT CHEST: Lungs are well aerated. No acute pulmonary infiltrates. No focal pneumonia or pleural fluid. 2 small hazy opacities in the RIGHT lower lobe measuring 3 to 4 mm. No other suspicious pulmonary parenchymal opacities. No mediastinal or hilar lymphadenopathy. Normal caliber thoracic aorta. No axillary lymphadenopathy. A few nodules in the RIGHT breast. These are technically indeterminant. Largest nodule measures 1.7 c m. Additional nodule measures 8 mm. Recommend follow-up with RIGHT breast diagnostic mammography and ultrasound. Mild thoracic kyphosis. Prior postoperative changes T10-L1. Partial corpectomy with interbody fusion graft T11. Dorsal fixation rods T10-L1. CT ABDOMEN AND PELVIS: Cholecystectomy. Mild hepatomegaly with enlargement the RIGHT hepatic lobe. Spleen size upper limits of normal measuring 12.8 cm. Normal GE junction. Adrenal glands are normal. Noncontrast pancreas appe ars normal. Normal caliber abdominal aorta. No abdominal or pelvic lymphadenopathy. No inguinal lymph adenopathy. Normal appendix in the RIGHT lower quadrant. Urine distended bladder. IMPRESSION: 1. Hepatomegaly. Spleen size upper limits of normal 2. Prior cholecystectomy. 3. Prior postoperative changes thoracolumbar spine described above. 4. No lymphadenopathy in the chest, abdomen, or pelvis. 5. Two RIGHT breast nodules indeterminate. Recommend further evaluation with diagnostic mammography and ultrasound. 6. Two tiny hazy opacities in the RIGHT lower lobe likely incidental measuring 3 to 4 mm. Lungs are otherwise well aerated. Notified Maty Rebolledo PA-C at 06/25/2023 11:[address] neck findings also discussed
--- NOTE | 2023-06-25 09:53 | CT_ITS ---
WS: [id number] CT NECK TECHNIQUE: Contrast-enhanced CT of the neck with coronal and sagittal reformatted images. CLINICAL INFORMATION: enlarged lymph nodes, neutropenic COMPARISON: None. DLP: 323.[address] scans at [facility] use at least one of these dose optimization techniques: automated e xposure control; mA and/or kV adjustment per patient size (includes targeted exams where dose is matc hed to clinical indication); or iterative reconstruction. FINDINGS: Bilateral tonsillar enlargement with heterogeneous enhancement. Recommend correlation for tonsillitis . No evidence of abscess or fluid collection. Oropharynx remains patent. Secretions within the LEFT v allecula. Airway is patent. Mucosal thickening RIGHT mastoid. Paranasal sinuses are well aerated. Normal posterior nasopharynx. Normal parotid glands. Normal submandibular glands. Diffuse cervical chain lymphadenopathy bilaterall y in a symmetric distribution. Enlarged submental lymph node. No drainable fluid collections or absce ss. Straightening of the normal cervical lordosis. IMPRESSION: 1. Enlarged heterogeneously enhancing palatine tonsils. Correlation for tonsillitis. No evidence of abscess. 2. Moderate diffuse enhancing cervical lymphadenopathy worse involving the upper neck. Largest enhan cing lymph nodes measure up to 2 cm. Differential considerations include infectious or inflammatory l ymphadenopathy, mononucleosis in a patient this age. Lymphoma/leukemia not excluded. Recommend follow -up to resolution. 3. No other suspicious findings.
[2023-06-25 10:14] LABS: Lactic Sepsis W/Reflex 0.8 mmol/L (0.5-2.2)
[2023-06-25 10:37] LABS: Hepatitis A Antibody IgM Non-Reactive (Nonreactive); Hepatitis B Core IgM Non-Reactive (Nonreactive); Hepatitis B Surface Antigen Non-Reactive (Nonreactive); Hepatitis C Virus Antibody Non-Reactive (Nonreactive)
[2023-06-25 10:40] VITALS: BP 121/76; PULSE 91; RESP 18; O2SAT 100
[2023-06-25 10:45] LABS: HIV 1 & 2 Antibody Non-Reactive (Non-Reactiv); HIV 1 & 2 Antigen Non-Reactive (Non-Reactiv)
[2023-06-25] MEDS: cefepime 1,000 MG in sodium chloride 0.9% (plus) 50 ML 100 MG IV (10:52)
[2023-06-25 11:32] VITALS: BP 121/71; PULSE 84; RESP 16; O2SAT 95
[2023-06-25] MEDS: iohexol 350 mg/mL 500 mL Btl (per mL) IV (11:48)
[2023-06-25 12:13] VITALS: BP 132/91; PULSE 79; O2SAT 99
[2023-06-25 12:25] LABS: Iron 17 ug/dL (37-145); Percent Saturation 4.9 % (20-50); Total Iron Binding Capacity 343 mcg/dl; Unsaturated Iron Binding 326 ug/dL (112-347)
[2023-06-25 14:13] VITALS: BP 111/59; PULSE 86; RESP 16; O2SAT 98
== END 2023-06-25 16:10 | disposition designated cancer center or children's hospital (05) ==
PROVIDERS: Emergency Provider Physician Assistant; PCP Nurse Practitioner
DX: D70.9 Neutropenia, unspecified (principal); R50.81 Fever presenting with conditions classified elsewhere; N63.10 Unspecified lump in the right breast, unspecified quadrant; R59.0 Localized enlarged lymph nodes; F17.210 Nicotine dependence, cigarettes, uncomplicated; Z20.822 Contact with and (suspected) exposure to COVID-19
CPT/HCPCS: 36415; 70491; 71250; 74176; 80048; 80074; 83540; 83550; 83605; 85025; 86308; 87040; 87081; 87426; 87806; 87880; 96365; 96366; 99285; J0692; Q9967

== ENCOUNTER → 2023-07-22 09:32 | Outpatient (BNVA) | payer MEDICAID, SELFPAY | PROVIDERS: PCP Nurse Practitioner; Visit Provider Nurse Practitioner | DX: N63.0 Unspecified lump in unspecified breast (principal); J45.909 Unspecified asthma, uncomplicated; D50.9 Iron deficiency anemia, unspecified | CPT/HCPCS: 80053; 83540; 85025 ==

== ENCOUNTER 2023-08-13 11:34 | Outpatient (CLI) | payer MEDICAID, SELFPAY ==
--- NOTE | 2023-08-13 12:00 | CT_ITS ---
WS: [id number] CT NECK WITH CONTRAST HISTORY: J39.1 - Other abscess of pharynx TECHNIQUE: Contiguous 2 mm axial images are performed through the neck with intravenous contrast. Sag ittal and coronal reformats are also submitted. All CT scans at [facility] use at least one o f these dose optimization techniques: automated exposure control; mA and/or kV adjustment per patient size (includes targeted exams where dose is matched to clinical indication); or iterative reconstruc tion. CONTRAST: CONTRAST: Omnipaque 350; 100 mL IV. DLP: 238.02 mGy.cm COMPARISON: 06/25/2023 Thayer tonsils have significantly decreased in size and enhancement since the prior study. There is no compromise of the airway. No abscess. Nasopharynx and oropharynx are negative. Epiglottis is norm al. Torus tubarius and fossa of Rosenmuller and parapharyngeal fat are normal. Previously described cervical chain lymphadenopathy is also decreased in size. The largest lymph node s are still mildly hypervascular at level 2A on the LEFT. Maximal transverse diameter of 13 mm. Lymph nodes have significantly decreased in size and enhancement since 06/25/2023. No masses are identified. Thyroid gland and salivary glands are normally enhancing with no masses. No osseous abnormalities. Visualized portions of the skull base demonstrate no abnormalities. Orbits and globes are within norm al limits. No soft tissue masses. Visualized paranasal sinuses and mastoid air cells are normal. Lung apices are clear. Reidentified are small masses within the RIGHT breast for which additional wor k-up was recommended on the prior study. IMPRESSION: 1. No neck abscess. 2. Previously described hyperemia involving the Thayer tonsils has improved. No abscess. 3. Significant improvement in the bilateral cervical chain lymphadenopathy since 06/25/2023.
[2023-08-13] MEDS: iohexol 350 mg/mL 500 mL Btl (per mL) IV (12:09)
== END 2023-08-13 11:35 | disposition home or self-care (01) ==
PROVIDERS: PCP Nurse Practitioner; Visit Provider Nurse Practitioner
DX: J39.1 Other abscess of pharynx (principal)
CPT/HCPCS: 70491; Q9967

== ENCOUNTER 2023-08-23 13:20 | Outpatient (CLI) | payer MEDICAID, SELFPAY ==
--- NOTE | 2023-08-23 13:39 | MM_ITS ---
WS: [id number] RIGHT 3D TOMOSYNTHESIS DIGITAL MAMMOGRAPHY WITH CAD CLINICAL INFORMATION: N63.0 - Unspecified lump in unspecified breast HISTORY: Breast nodule seen on recent CT 06/25/2023 COMPARISON: 10/16/22 mammography and ultrasound TECHNIQUE: 3 views of the right breast were obtained. FINDINGS: Prior CT reviewed. Scattered fibroglandular densities of the right breast. Similar-appearing previously described ovoid nodules in the central RIGHT breast and upper inner and outer quadrants are again seen. These are sim ilar to the prior examination. Ultrasound of these areas is pending. ULTRASOUND BREAST RIGHT TECHNIQUE: Ultrasound right breast focused area of concern. CLINICAL INFORMATION: N63.0 - Unspecified lump in unspecified breast COMPARISON: 2021 FINDINGS: Stable well-circumscribed ovoid lesion 12:00, 4 cm from the nipple measuring 1.5 x 0.6 x 1.1 cm like ly represents a fibroadenoma In addition, stable 1.0 x 0.3 x 0.9 cm at the 2 o'clock position 6 cm from the nipple like represents a small lymph node unchanged. Stable small subcutaneous lymph node at the 11 o'clock position measuring 6.3 mm, 6 cm from the nippl e. No new suspicious abnormalities. Recommend return to annual screening mammography. IMPRESSION: MM/[place] [id number] BI-RADS: 2-Benign FOLLOW UP: 1 Year Follow-up Recommend return to annual screening mammography.
--- NOTE | 2023-08-23 14:15 | US_ITS ---
WS: [id number] RIGHT 3D TOMOSYNTHESIS DIGITAL MAMMOGRAPHY WITH CAD CLINICAL INFORMATION: N63.0 - Unspecified lump in unspecified breast HISTORY: Breast nodule seen on recent CT 06/25/2023 COMPARISON: 10/16/22 mammography and ultrasound TECHNIQUE: 3 views of the right breast were obtained. FINDINGS: Prior CT reviewed. Scattered fibroglandular densities of the right breast. Similar-appearing previously described ovoid nodules in the central RIGHT breast and upper inner and outer quadrants are again seen. These are sim ilar to the prior examination. Ultrasound of these areas is pending. ULTRASOUND BREAST RIGHT TECHNIQUE: Ultrasound right breast focused area of concern. CLINICAL INFORMATION: N63.0 - Unspecified lump in unspecified breast COMPARISON: 2021 FINDINGS: Stable well-circumscribed ovoid lesion 12:00, 4 cm from the nipple measuring 1.5 x 0.6 x 1.1 cm like ly represents a fibroadenoma In addition, stable 1.0 x 0.3 x 0.9 cm at the 2 o'clock position 6 cm from the nipple like represents a small lymph node unchanged. Stable small subcutaneous lymph node at the 11 o'clock position measuring 6.3 mm, 6 cm from the nippl e. No new suspicious abnormalities. Recommend return to annual screening mammography. IMPRESSION: US/US breast RT limited* [id number] BI-RADS: 2-Benign FOLLOW UP: 1 Year Follow-up Recommend return to annual screening mammography.
== END 2023-08-23 13:21 | disposition home or self-care (01) ==
PROVIDERS: PCP Nurse Practitioner; Visit Provider Nurse Practitioner
DX: N63.15 Unspecified lump in the right breast, overlapping quadrants (principal)
CPT/HCPCS: 76642; 77061; G0279

== ENCOUNTER → 2023-08-31 16:44 | Outpatient (BNVA) | payer MEDICAID, SELFPAY | PROVIDERS: PCP Nurse Practitioner; Visit Provider Nurse Practitioner | DX: E66.9 Obesity, unspecified (principal); E66.01 Morbid (severe) obesity due to excess calories; J06.9 Acute upper respiratory infection, unspecified; J02.9 Acute pharyngitis, unspecified; R00.2 Palpitations | CPT/HCPCS: 87071; 87880 ==

== ENCOUNTER 2023-10-22 11:46 | Outpatient (CLI) | payer MEDICAID, SELFPAY ==
--- NOTE | 2023-10-22 11:56 | MM_ITS ---
WS: [id number] BILATERAL SCREENING DIGITAL TOMOSYNTHESIS MAMMOGRAM WITH CAD HISTORY: SCREENING COMPARISON: 10/16/2022, 08/23/2023, 02/19/2021 Bilateral CC and MLO views with tomosynthesis and synthetic mammography submitted. Computer aided det ection analyzed. Breast composition: The breasts are heterogeneously dense, which may obscure small masses. No suspici ous masses, microcalcifications or architectural distortion. Bilateral breast asymmetries and masses are stable. Recent ultrasound evaluation of the RIGHT breast mass near 12:00 demonstrated what appear ed to be a fibroadenoma. No interval change. No suspicious calcifications. No distortion. IMPRESSION: MM/[place] [id number] BI-RADS: 2-Benign FOLLOW UP: 1 Year Follow-up
== END 2023-10-22 11:47 | disposition home or self-care (01) ==
LOC: RAD 11:46
PROVIDERS: PCP Nurse Practitioner; Visit Provider Nurse Practitioner
DX: Z12.31 Encounter for screening mammogram for malignant neoplasm of breast (principal)
CPT/HCPCS: 77063; 77067

== ENCOUNTER → 2023-10-27 16:17 | Outpatient (BNVA) | payer MEDICAID, SELFPAY | PROVIDERS: PCP Nurse Practitioner; Visit Provider Nurse Practitioner | DX: J45.909 Unspecified asthma, uncomplicated (principal); D50.9 Iron deficiency anemia, unspecified; E66.9 Obesity, unspecified; L90.0 Lichen sclerosus et atrophicus; F41.8 Other specified anxiety disorders | CPT/HCPCS: 80053; 83540; 84443; 85025 ==

== ENCOUNTER 2023-11-19 10:51 | Outpatient (CLI) | payer MEDICAID, SELFPAY ==
[2023-11-19 11:24] VITALS: BMI 31.5
--- NOTE | 2023-11-19 11:25 | ECG_ITS ---
[facility] Test Date: 2023-11-19 Pat Name: Jessie Fitzpatrick Department: Room: Gender: Female Haz Tech: Marisela ThurmanKumar : 1990 Requested By: Tamra Jones Order Number: [id number] Roger MD: Lg Stern M.D. Interpretive Statements NAME OF STUDY: TREADMILL STRESS TEST INDICATION: [CP, ] EXERCISE DATA: The patient was exercised by Adam protocol. Baseline heart rate was 60 beats per minute. Baseline blood pressure was 149/76 millimeters of mercury. Target heart rate was 157 beats per minute. Maximum heart rate achieved was 165, which was 105% of the target heart rate. Maximum blood pressure was 142/75 millimeters of mercury. Total exercise time was 6 minutes and 36 seconds. Maximum METs achieved was 10.2. The reason for ending the test was completion of protocol. The patient complained of shortness of breath during the stress test, which then resolved at the end of the test. ELECTROCARDIOGRAM: BASELINE: Showed sinus rhythm, normal axis, no significant ST-T changes at the baseline noted. [] EXERCISE: At the peak exercise level, [] significant artifact makes interpretation difficult. However grossly no significant ST-T wave changes seen. RECOVERY: During the recovery period, heart rate dropped appropriately. No significant ST-T changes in the recovery suggestive of ischemia noted. [] CONCLUSION: 1. Exercise capacity is good. 2. Heart rate response was appropriate. 3. Blood pressure response was appropriate. 4. Symptoms not suggestive of ischemia. 5. Significant artifacts of EKG strips seen at peak exercise level. This makes interpretation of EKG difficult however grossly there is no significant ST-T wave changes at peak exercise. Electronically Signed On 11-21-2023 13:32:34 MARKETING TEAM LEAD by Lg Stern M.D. [id number]
[2023-11-19 11:53] VITALS: BP 122/74; PULSE 78
== END 2023-11-19 10:52 | disposition home or self-care (01) ==
PROVIDERS: PCP Nurse Practitioner; Visit Provider Internal Medicine Cardiovascular Disease
DX: R07.9 Chest pain, unspecified (principal)
CPT/HCPCS: 93017

== ENCOUNTER 2024-04-30 11:22 | Inpatient (IN) | payer MEDICAID, SELFPAY ==
--- NOTE | 2024-04-30 11:29 | W.ED.PSYCHS ---
HPI - Psych General: Chief Complaint: Psychiatric Symptoms Stated Complaint: MHE Time Seen by Provider: 04/30/24 11:25 Source: police Mode of arrival: other Limitations: no limitations History of Present Illness: 34-year-old female brought in by police after making suicidal statements. Patient does admit that overnight she had been camping and brought a gun into the tendon was saying she is going to kill herself. She denies any worsening improving factors states she has been severely depressed due to living situations. Associated symptoms: Reports depression and suicidal ideation Review of Systems Const: Denies: fever(s), chills, body aches or change in appetite ENMT: Denies: throat pain or dental pain Card: Denies: chest pain Resp: Denies: dyspnea GI: Denies: abdominal pain, nausea, vomiting or diarrhea Musc: Denies: neck pain or back pain Skin/Breast: Denies: rash Neuro: Denies: headache(s) Psych: Reports: depression and suicidal ideation [facility] ED PFSH: Medical History Generalized anxiety disorder Iron deficiency anemia Psychiatric care LGSIL on Pap smear of cervix (~2021) No pertinent past medical history Neghx: htn,dm,thyroid, dvt/pe PCP: Kayley Mitchell Anogenital lichen sclerosus Obesity, Class II, BMI 35-39.9 Asthma Chronic pain Back Surgical History No pertinent past surgical history History of back surgery (~2003) had to have a blood clot removed from her back at [facility] in [place]. History of cholecystectomy (~2021) H/O section (~2014) History of cholecystectomy (~2021) History of back surgery (~2003) History of section (~2014) Emergent performed by Dr. Mackey. Tubal ligation performed at the same time. History of tubal ligation (~2014) Family History Grandmother Cancer Breast and throat Diabetes maternal Breast cancer, Onset Age: 40 maternal Stroke maternal paternal Hypertension maternal Mother Cancer Skin Diabetes Breast cancer, Onset Age: 30 Family/Other Breast cancer maternal aunts Mother Breast cancer Diabetes Grandmother Breast cancer maternal Diabetes maternal Hypertension maternal Stroke maternal paternal Family/Other Breast cancer paternal aunts Denies family history of Colon cancer Ovarian cancer Heart disease Family history of thyroid problem Uterine cancer Hyperchloremia Social History Smoking and tobacco/nicotine status: current every day tobacco/nicotine user Second hand smoke exposure: Yes Alcohol intake: former Substance/Drug Use: former Adopted: No Caregiver/support person: No Lives independently: Yes Household members: significant other and children Housing: House Marital status: Single Number of children: 2 service: No Current occupational status: employed Current occupation: [employer] Pets and animals: No Do you think of yourself as: Straight/Heterosexual Current gender identity: Female Physical Exam Const: COMMON NORMALS: no acute distress, patient oriented x3 and healthy appearing HENMT: COMMON NORMALS: normocephalic and atraumatic HEAD & SCALP: normocephalic and atraumatic Neck/C-Spine: COMMON NORMALS: full ROM Chest: COMMONS NORMALS: normal inspection of the chest Resp: COMMON NORMALS: normal respiratory effort Cardio: COMMON NORMALS: regular rate, regular rhythm and No murmurs present (Cardio) RATE: regular rate RHYTHM: regular rhythm Extremity: COMMON NORMALS: normal to inspection and full ROM Neuro: COMMON NORMALS: patient oriented x3, moves all extremities and no focal motor deficits Psych: COMMON NORMALS: mental status grossly normal and cooperative THOUGHT CONTENT: Yes Suicidality present Skin: COMMON NORMALS: no rashes or lesions noted and no wounds GENERAL SKIN EXAM: no rashes or lesions noted Course Vital Signs: Vital signs: Vital Signs Temperature 98.4 F 04/30/24 12:01 Pulse Rate 97 04/30/24 12:01 Respiratory Rate 18 04/30/24 12:01 Blood Pressure 126/69 04/30/24 12:29 Pulse Oximetry 98 04/30/24 12:01 Oxygen Delivery Me thod Room Air 04/30/24 12:01 MDM - Psych Medical Decision Making Patient presents here with suicidal ideations patient's medically cleared placed under 96-hour hold I spoke to psychiatrist will admit at this time. Medical Records I reviewed the patient's medical records. Lab Data I reviewed the patient's lab results. 04/30/24 11:48 04/30/24 11:48 Laboratory Results WBC 7.52 10^3/uL (3.29-11.43) 04/30/24 11:48 RBC 4.52 10^6/uL (3.85-5.65) 04/30/24 11:48 Hgb 10.70 g/dL (11.27-16.99) L 04/30/24 11:48 Hct 34.8 % (36-47) L 04/30/24 11:48 MCV 77.0 fl (85-98) L 04/30/24 11:48 MCH 23.7 pg (27-33) L 04/30/24 11:48 MCHC 30.7 g/dL (30-55) 04/30/24 11:48 RDW 15.9 % (12.1-15.1) H 04/30/24 11:48 Plt Count 277 10^3/cmm (157-399) 04/30/24 11:48 MPV 8.8 fL (7.4-10.4) 04/30/24 11:48 Neut % (Auto) 59.9 % 04/30/24 11:48 Lymph % (Auto) 29.3 % 04/30/24 11:48 [place] % (Auto) 9.0 % 04/30/24 11:48 Eos % (Auto) 1.2 % 04/30/24 11:48 Baso % (Auto) 0.3 % 04/30/24 11:48 Neut # (Auto) 4.51 10^3/uL (1.8-7.7) 04/30/24 11:48 Lymph # (Auto) 2.2 10^3/uL (0.8-4.8) 04/30/24 11:48 [place] # (Auto) 0.7 10^3/uL (0.2-0.9) 04/30/24 11:48 Eos # (Auto) 0.1 10^3/uL (0.0-0.8) 04/30/24 11:48 Baso # (Auto) 0.0 10^3/uL (0.0-0.1) 04/30/24 11:48 Nucleated RBC % (auto) 0 % 04/30/24 11:48 Nucleated RBCs # 0.0 /100WBC 04/30/24 11:48 No radiology studies performed this visit Discharge Plan Discharge Patient Disposition: Admitted As Inpatient Admit Provider: Mark Anthony Hamm Clinical Impression: Suicidal ideation Condition: Stable Coding Level of Care Code ED Food Cashier for Edy Chaudhary
--- NOTE | 2024-04-30 11:34 | PC.NURSE ---
PT REFUSING TO LET NURSE TECH OBTAIN TRIAGE VITALS. PT STATES I DON'T HAVE TO FUCKING LET YOU TAKE VITALS. I GET THAT I AM ON A 96 HOUR HOLD BUT YOU DON'T HAVE TO GET MY VITALS. PT CURRENTLY IS NOT SERVED 96HR PAPERWORK. NOTIFIED. PT CONTINUES TO VERBALLY REFUSE TREATMENT AND PRESS THE CODE BLUE BUTTON IN ROOM. SECURITY AND PSA AT BEDSIDE.
--- NOTE | 2024-04-30 11:48 | PC.NURSE ---
[facility] AND [facility], AT PT BEDSIDE. PT YELLING AT BOTH OF THEM STATING YOU CAN'T STAY HERE. I DON'T WANT YOU HERE. I HAVE THE RIGHT TO REFUSE YOU STANDING HERE. SECURITY EDUCATED PT THAT HE HAS TO STAY DUE TO HOW UNCOOPERATIVE SHE IS BEING. PT CONTINUES TO YELL AT SECURITY STATING I HATE MEN. I DON'T HAVE TO LET YOU COCK SUCKING MEN STAND HERE. YOU WILL NOT GET MY VITAL SIGNS AND I WILL LEAVE HERE. YOU CAN'T KEEP ME HERE. I WANT NO MEN TO TAKE CARE OF ME. NO FUCKING MEN. INPUT OUTPUT CLERK ARRIVES IN THE ER. PT IS THEN SERVED HER 96 HOUR PAPER WORK FROM INPUT OUTPUT CLERK, FAIZA AHMADI, AND . PT RIPS UP HER COPY OF HER 96 HOUR PAPERWORK AND STATES I DON'T FUCKING CARE. GIVE ME YOUR SCRUBS AND LETS GET THIS FUCKING THING OVER WITH. FAIZA ASTORGA, BRINGS PT GREEN SCRUBS AND ASKS PT TO CHANGE INTO THEM. PT STATES YOUR NOT GOING TO FUCKING UNDRESS ME. FAIZA ASTORGA STATES SHE IS NOT BUT SHE MUST BE PRESENT TO ENSURE PT IS GETTING DRESSED OUT. PT REFUSED TO TAKE OFF HER UNDERWEAR AND BRA. FAIZA ASTORGA EDUCATED PT THAT SHE MUST REMOVE THESE THINGS FOR PT SAFETY. PT STILL CONTINUES TO REFUSE TO TAKE THEM OFF. FAIZA ASTORGA TOLD PT THAT IF SHE IS UNWILLING TO REMOVE UNDER GARMENTS, THEN WE WOULD BE FORCED TO CUT THEM OFF. PT STATES YOU WILL NOT FUCKING CUT MY BRA. I AM NOT GOING WITH OUT A BRA. DR PACK THEN ENTERS THE ROOM AND NOTIFIES PT THAT SHE MUST REMOVE ALL UNDERGARMENTS AND DRESS OUT APPROPRIATELY. PT THEN BECAME SOMEWHAT COOPERATIVE AND REMOVED HER UNDERGARMENTS. PT STILL UPSET AND STATES I'M GOING TO FIND OUT WHERE YOU MEN LIVE. PT WAS INSTRUCTED THAT IN ORDER TO PROCEED WITH 96 HOUR PROCESS SHE MUST GIVE US A URINE SAMPLE AND SOME BLOOD WORK. PT STATES SHE DOES NOT NEED TO PEE RIGHT NOW. FAIZA ASTORGA INSTRUCTED PT THAT IF SHE DOES NOT PEE FOR US THEN WE MAY HAVE TO STRAIGHT CATH HER FOR URINE. PT STATES YOU WILL NOT PUT A CATHETER IN ME. PT ALLOWED LAB TO COME IN TO ROOM IN ORDER TO GET BLOOD. PT UPSET THAT LAB DRAW WAS NOT DONE BY A FEMALE. RIZWAN, RN EDUCATED PT THAT THE ROOF SERVICE TECHNICIAN WE HAD AVAILABLE WAS A MALE. PT ALLOWS HIM TO COME AND DRAW LABS. PT STATES I HOPE THIS PLACE BLOWS UP AND YOU ALL IN IT.
[2024-04-30 11:53] LABS: Basophils % 0.3 %; Eosinophils # 0.1 10^3/uL (0.0-0.8); Eosinophils % 1.2 %; Hematocrit 34.8 % (36-47); Lymphocytes # 2.2 10^3/uL (0.8-4.8); Lymphocytes % 29.3 %; Mean Corpuscular HGB Conc 30.7 g/dL (30-55); Mean Corpuscular Hemoglobin 23.7 pg (27-33); Mean Platelet Volume 8.8 fL (7.4-10.4); Monocytes # 0.7 10^3/uL (0.2-0.9); Neutrophils # 4.51 10^3/uL (1.8-7.7); Neutrophils % 59.9 %; Nucleated Red Blood Cells % 0 %; Platelet Count 277 10^3/cmm (157-399); Red Blood Count 4.52 10^6/uL (3.85-5.65); Red Cell Distribution Width 15.9 % (12.1-15.1); White Blood Count 7.52 10^3/uL (3.29-11.43)
[2024-04-30 12:01] VITALS: BP 194/141; PULSE 97; RESP 18; TEMP 36.9; O2SAT 98
[2024-04-30 12:10] LABS: Alanine Aminotransferase 9 U/L (0-33); Albumin Level 4.2 g/dL (3.5-5.2); Alkaline Phosphatase 66 U/L (35-105); Anion Gap 18.5 (5-19); Aspartate Amino Transferase 13 U/L (0-32); Blood Urea Nitrogen 12 mg/dL (6-20); Carbon Dioxide 19 mmol/L (22-29); Chloride 105 mmol/L (98-107); Globulin 3.5 g/dL (1.3-4.6); Glomerular Filtration Rate 113.1 mL/min (90-130); Glucose 112 mg/dL (65-115); Osmolality Calculated 289 mOsm/kg (285-295); Potassium 3.5 mmol/L (3.5-5.1); Sodium 139 mmol/L (136-145); Total Bilirubin 0.4 mg/dL (0.15-1.2); Total Protein 7.7 g/dL (6.6-8.7)
[2024-04-30 12:16] LABS: Acetaminophen < 5.0 ug/mL (10-30); Salicylate < 0.3 mg/dL (3-10)
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
[2024-04-30 12:29] VITALS: BP 126/69
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
[2024-04-30 13:13] LABS: THC Screen Urine Positive (Negative)
[2024-04-30 13:14] LABS: Amphetamines Screen Urine Negative (Negative); Barbiturates Screen Urine Negative (Negative); Benzodiazepines Screen Urine Negative (Negative); Cocaine Screen Urine Negative (Negative); HCG Qualitative Urine. Negative (Negative); Opiate Screen Urine Positive (Negative); PCP Screen Urine Negative (Negative)
[2024-04-30 14:15] VITALS: BP 157/81; PULSE 67; RESP 18; TEMP 36.8; O2SAT 99
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
[2024-04-30] MEDS: haloperidol 5 mg Tablet PO (19:44)
[2024-04-30] MEDS: LORazepam 2 mg Tablet PO (19:44)
[2024-04-30] MEDS: diphenhydrAMINE 50 mg Capsule PO (19:44)
--- NOTE | 2024-05-01 02:57 | PC.NURSE ---
Patient behavior At approximately 1900 patient was observed being very loud angry and agitated while on the phone. She was making statements to the effect of how she was going to bandar everyone in this place, we had no right to take her rights, she was going to get out of here. She was using several curse words and and racial remarks. When patient went to her room I asked if she was ok and if we could talk for a minute so I could get to know what was going on. She agreed and we both sat on her bed for about an hour as she was verbally de-escalated and agreed to take medication to calm her anger and anxiety. Patient was very loud and sometimes tearful. She agreed that being here for the night and remaining calm was best fro her situation. She was calm and cooperative at the end of the conversation. At this point of the note, she continues to rest quietly with her eyes closed.
[2024-05-01 06:00] VITALS: RESP 17
--- NOTE | 2024-05-01 10:17 | PC.OT ---
HOLD OT EVAL PER NURSING PATIENT HAD BEEN AGITATED AND IS CURRENTLY SLEEPING
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
[2024-05-01 14:00] VITALS: BP 120/79; PULSE 86; RESP 16; TEMP 36.6; O2SAT 98
[2024-05-01] MEDS: hyDROXYzine 25 mg Capsule 50 MG PO (21:15)
[2024-05-01] MEDS: trazodone 50 mg Tablet PO (21:15)
[2024-05-01 22:00] VITALS: BP 129/96; PULSE 89; RESP 18; TEMP 36.6; O2SAT 96
[2024-05-02 06:00] VITALS: RESP 16
--- NOTE | 2024-05-02 06:37 | PC.NURSE ---
RN did not want woke up due to agitation. respiration rate 16.
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
[2024-05-02 14:00] VITALS: BP 124/82; PULSE 82; RESP 17; TEMP 36.8; O2SAT 100
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
[2024-05-02 18:19] VITALS: BP 133/81; PULSE 71; RESP 18; O2SAT 100
--- NOTE | 2024-05-02 18:19 | ECG_ITS ---
[facility] Test Date: 2024-05-02 Pat Name: Jessie Fitzpatrick Department: Room: 152 Gender: Female Regional Driver: : 1990 Requested By: Mark Anthony Hamm Order Number: [id number] Roger MD: Tamra Jones M.D. Measurements Intervals [place] Rate: 69 P: 62 SD: 157 QRS: 50 QRSD: 96 T: 55 QT: 417 QTc: 448 Interpretive Statements SINUS RHYTHM WITH SINUS ARRHYTHMIA Compared to ECG 06/04/2023 14:09:24 No significant changes Electronically Signed On 05-02-2024 21:33:34 CDT by Tamra Jones M.D. [email or web address]
[2024-05-02 18:20] VITALS: PULSE 69
[2024-05-02] MEDS: OLANZapine 5 mg ODT PO (18:28)
--- NOTE | 2024-05-02 19:52 | PC.NURSE ---
PT MET WITH PHYSICIAN AND BECAME AGITATED. PT SLAMMED DOOR WHICH THEN OPENED FROM THE OTHER SIDE FROM THE AMOUNT OF FORCE USED. PT WAS IN HER ROOM KNOCKING THINGS AROUND AND SHOVING HER BEDSIDE TABLE. THIS NURSE ATTEMPTED TO LET PT SOOTHE HERSELF PT WAS ONLY IN HER ROOM AND WAS NOT ACTIVELY CAUSING HARM TO HERSELF, OTHERS, OR PROPERTY. THIS BEHAVIOR CONTINUED AND THEN THIS NURSE ALONG WITH CESARIO MACKEY LPN, AND GALE GARCIA CNA. THIS NURSE ATTEMPTED TO VERBALLY DE-ESCALATE PT. PT CONTINUED TO ESCALATE VERBALLY YELLING I JUST WANT TO GET THE FUCK OUT OF HER AND THAT [facility] DOCTOR IS DOING NOTHING BUT SITTING ON HIS FAT ASS. THIS NURSE ATTEMPTED TO EDUCATE PT THAT THIS TYPE OF BEHAVIOR WOULD NOT ASSIST IN HER EARLY DISCHARGE. PT STATED I DON'T GIVE A FUCK, IM NOT SUPPOSED TO BE HERE. THAT KERON ISN'T DOING ANYTHING ABOUT IT. PT CONTINUED TO YELL SLURS ABOUT THE PHYSICIAN AND WAS RESISTANT TO LEARNING. PT STATED HE WOULD LET ME OUT IF I WAS RG AND SUCKING HIS LEONARD. PT THEN BECAME EVEN MORE FRUSTRATED AND STARTED RIPPING HER CLOTHES, THROWING THINGS. A CODE 10 WAS CALLED. ONCE EVERYBODY ARRIVED. CHIEF OPERATING OFFICER CHANDLER SAT AND CALMED PT. THIS TOOK MULTIPLE MINUTES. PT WILLINGLY TOOK ORAL MEDICATIONS WHICH CONSISTED OF 50MG BENADRYL, 5MG HALDOL, AND 2 MG ATIVAN. PHYSICIAN CONTACTED AND ORDERED FOR HER BEDSIDE TABLE TO BE REMOVED UNTIL FUTURE EVALUATION. SABINA HARTLEY PRINCIPAL ARCHITECT NOTIFIED. [employer] ZION MURILLO ACTIVE DURING EVENT. INCIDENT REPORT FILED.
[2024-05-02 20:38] VITALS: BP 110/65; PULSE 78; RESP 18; TEMP 36.7; O2SAT 98
[2024-05-03 06:00] VITALS: RESP 16
[2024-05-03 14:00] VITALS: BP 125/82; PULSE 94; RESP 15; TEMP 36.9; O2SAT 98
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
[2024-05-03 19:38] VITALS: BP 102/62; PULSE 63; RESP 18; TEMP 36.6; O2SAT 100
[2024-05-04 06:00] VITALS: BP 99/63; PULSE 75; RESP 18; TEMP 36.7; O2SAT 98
--- NOTE | 2024-05-04 09:34 | PC.NURSE ---
IN BED DOING A CROSSWORD PUZZLE. PT DENIES PAIN. DENIES SI/HI AND AVH AT THIS TIME. RATES ANXIETY AND DEPRESSION 0/10. PT SPOKE WITH THIS RN AT LENGTH AND REPORTED SHE IS MISSING HER CHILDREN. PT ALSO SHOWS INSIGHT TO FUTURE PLANS AND GOING INTO THE [employer] OR FINISHING COLLEGE. PT IS IN MUCH BRIGHTER SPIRITS TODAY. PT STATES SHE WAS NOT ABLE TO SLEEP GOOD DUE TO ANOTHER PT MAKING NOISES ALL NIGHT. PT GOAL IS TO DISCHARGE AND SEE MY CHILDREN HOPEFULLY. ALL QUESTIONS ANSWERED AND SUPPORT VOICED.
--- NOTE | 2024-05-04 14:59 | P.NPUDS_ITS ---
Diagnoses at Discharge Discharge Diagnosis (1) PTSD (post-traumatic stress disorder): Status: Acute (2) Generalized anxiety disorder: Status: Acute (3) Major depressive disorder: Status: Chronic Qualifiers: Major depression recurrence: recurrent Active/Remission status: currently active Major depression episode severity: moderate Qualified Code(s): F33.1 - Major depressive disorder, recurrent, moderate (4) Suicidal ideation: Status: Acute Reason for Visit Reason for Visit: MHE Involuntary Hold Information 96 Hour Hold: 96 Hour Involuntary Admission: Yes 96 Hour Hold Ending Date: 05/05/24 96 Hour Hold Ending Time: 00:01 Mental Status Exam MSE Comments: This is an obese white female in hospital scrubs with adequate grooming and eye contact. No abnormal movements except for mild psychomotor retardation. Somewhat cooperative with exam in mild to moderate distress. Speech was slightly decreased rate and volume. Mood described as not happy about being here, affect congruent and irritable. Thought process organized. Thought content: Patient denied current suicidal or homicidal ideation and reports that all of the reports in the affidavits are false, there were no delusions reported or noted but she reported having some paranoid feelings, she denied any auditory or visual hallucinations. The patient denies any thoughts of violence or aggression towards herself or others. She reports feeling paranoid, believing that others are out to get her. She denies any hallucinations or delusions. Attention and concentration appeared intact and memory appeared reliable but none were formally tested. She is alert and oriented x3. Insight and judgment appeared limited, impulse control is impaired. Discharge Data Studies Completed and Pending: Laboratory Results WBC 7.52 10^3/uL (3.2 9-11.43) 04/30/24 11:48 RBC 4.52 10^6/uL (3.8 5-5.65) 04/30/24 11:48 Hgb 10.70 g/dL (11.27 -16.99) L 04/30/24 11:48 Hct 34.8 % (36-47) L 04/30/24 11:48 MCV 77.0 fl (85-98) L 04/30/24 11:48 MCH 23.7 pg (27-33) L 04/30/24 11:48 MCHC 30.7 g/dL (30-55) 04/30/24 11:48 RDW 15.9 % (12.1-15.1 ) H 04/30/24 11:48 Plt Count 277 10^3/cmm (157 -399) 04/30/24 11:48 MPV 8.8 fL (7.4-10.4) 04/30/24 11:48 Neut % (Auto) 59.9 % 04/30/24 11:48 Lymph % (Auto) 29.3 % 04/30/24 11:48 Ness % (Auto) 9.0 % 04/30/24 11:48 Eos % (Auto) 1.2 % 04/30/24 11:48 Baso % (Auto) 0.3 % 04/30/24 11:48 Neut # (Auto) 4.51 10^3/uL (1.8 -7.7) 04/30/24 11:48 Lymph # (Auto) 2.2 10^3/uL (0.8- 4.8) 04/30/24 11:48 Ness # (Auto) 0.7 10^3/uL (0.2- 0.9) 04/30/24 11:48 Eos # (Auto) 0.1 10^3/uL (0.0- 0.8) 04/30/24 11:48 Baso # (Auto) 0.0 10^3/uL (0.0- 0.1) 04/30/24 11:48 Nucleated RBC % (a uto) 0 % 04/30/24 11:48 Nucleated RBCs # 0.0 /100WBC 04/30/24 11:48 Sodium 139 mmol/L (136-1 45) 04/30/24 11:48 Potassium 3.5 mmol/L (3.5-5 .1) 04/30/24 11:48 Chloride 105 mmol/L (98-10 7) 04/30/24 11:48 Carbon Dioxide 19 mmol/L (22-29) L 04/30/24 11:48 Anion Gap 18.5 (5-19) 04/30/24 11:48 BUN 12 mg/dL (6-20) 04/30/24 11:48 Creatinine 0.6 mg/dL (0.5-0. 9) 04/30/24 11:48 GFR Calculation 113.1 mL/min (90- 130) 04/30/24 11:48 Glucose 112 mg/dL (65-115 ) 04/30/24 11:48 Calculated Osmolal ity 289 mOsm/kg (285- 295) 04/30/24 11:48 Calcium 9.0 mg/dL (8.5-10 .5) 04/30/24 11:48 Total Bilirubin 0.4 mg/dL (0.15-1 .2) 04/30/24 11:48 AST 13 U/L (0-32) 04/30/24 11:48 ALT 9 U/L (0-33) 04/30/24 11:48 Alkaline Phosphata se 66 U/L (35-105) 04/30/24 11:48 Total Protein 7.7 g/dL (6.6-8.7 ) 04/30/24 11:48 Albumin 4.2 g/dL (3.5-5.2 ) 04/30/24 11:48 Globulin 3.5 g/dL (1.3-4.6 ) 04/30/24 11:48 HCG, Qual Negative (Negati ve) 04/30/24 12:35 Salicylates < 0.3 mg/dL (3-10 ) L 04/30/24 11:48 Urine Opiates Scre en Positive ng/mL (N egative) H 04/30/24 12:35 Acetaminophen < 5.0 ug/mL (10-3 0) L 04/30/24 11:48 Ur Barbiturates Sc reen Negative ng/mL (N egative) 04/30/24 12:35 Ur Phencyclidine S crn Negative ng/mL (N egative) 04/30/24 12:35 Ur Amphetamines Sc reen Negative ng/mL (N egative) 04/30/24 12:35 U Benzodiazepines Scrn Negative ng/mL (N egative) 04/30/24 12:35 Urine Cocaine Scre en Negative ng/mL (N egative) 04/30/24 12:35 U Marijuana (THC) Screen Positive ng/mL (N egative) H 04/30/24 12:35 Vitals: Last Vital Signs Temp 98.0 F 05/04/24 06:00 Pulse 75 05/04/24 06:00 Resp 18 05/04/24 06:00 BP 99/63 05/04/24 06:00 Pulse Ox 98 05/04/24 06:00 O2 Del Method Room Air 05/04/24 06:00 Discharge Plan Discharge Patient Disposition: Home Condition: Stable Prescriptions: No Action No Known Home Medications Discharge Orders: Discharge Order (Routine); Ordered 05/04/24 Ordered By: Mark Anthony Hamm Referrals: [facility] [Outside] Adalgisa Mitchell FNP-C [Primary Care Provider] - Discharge Diet: Regular Discharge Activity: Resume usual activity Patient Instructions: Opioid Safety Discharge Attestations NPU Time Spent in Discharge Care*: less than 30 min Specific Discharge Activities: Specific discharge activities: educating patient, discussing with mental health case manager/social workers/dc planners, documenting/other paperwork and evaluating patient/reviewing data Coding Level of Care Code Acute Code for [facility] Fwd Diagnoses PTSD (post-traumatic stress disorder) F43.10 Generalized anxiety disorder F41.1 Moderate episode of recurrent major depressive disorder F33.1 Major depression recurrence: recurrent Active/Remission status: currently active Major depression episode severity: moderate Suicidal ideation R45.851
[2024-05-04 15:20] VITALS: BP 99/63; PULSE 75; RESP 18; TEMP 36.7; O2SAT 98
== END 2024-05-04 15:35 | disposition home or self-care (01) | DRG 885 ==
LOC: ER 12:07 → NP 12:47
PROVIDERS: Emergency Medicine; Admitting Provider Psychiatry & Neurology Psychiatry; Emergency Provider Emergency Medicine; PCP Nurse Practitioner; Visit Provider Psychiatry & Neurology Psychiatry
DX: F33.1 Major depressive disorder, recurrent, moderate (principal); R45.851 Suicidal ideations; F41.1 Generalized anxiety disorder; F43.10 Post-traumatic stress disorder, unspecified
CPT/HCPCS: 36415; 80053; 80306; 80307; 81025; 85025; 93005; 97150; 97165; 99285; 99291; 99292; Q0163

== ENCOUNTER → 2024-06-14 15:23 | Outpatient (BNVA) | payer MEDICAID, SELFPAY | PROVIDERS: PCP Nurse Practitioner; Visit Provider Nurse Practitioner | DX: D50.9 Iron deficiency anemia, unspecified (principal) | CPT/HCPCS: 80053; 83540; 85025 ==

== ENCOUNTER 2024-07-10 13:12 | Outpatient (CLI) | payer MEDICAID, SELFPAY ==
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
== END 2024-07-10 13:13 | disposition home or self-care (01) ==
LOC: RAD 13:14
PROVIDERS: PCP Nurse Practitioner
DX: M54.6 Pain in thoracic spine (principal); Z98.890 Other specified postprocedural states; R23.8 Other skin changes; M47.816 Spondylosis without myelopathy or radiculopathy, lumbar region
CPT/HCPCS: 72072; 72100

== ENCOUNTER → 2024-09-07 09:53 | Outpatient (BNVA) | payer MEDICAID, SELFPAY | PROVIDERS: PCP Nurse Practitioner; Visit Provider Nurse Practitioner | DX: D50.9 Iron deficiency anemia, unspecified; F41.8 Other specified anxiety disorders; L90.0 Lichen sclerosus et atrophicus; A60.00 Herpesviral infection of urogenital system, unspecified | CPT/HCPCS: 80053; 83550; 85025 ==